=== PATIENT | male | born 1960 | race Caucasian/White ===

== ENCOUNTER 2024-01-25 10:34 | Inpatient (IN) ==
--- NOTE | 2024-01-25 11:17 | Emergency Department Note ---
History of Present Illness General Chief complaint: Shortness of Breath/Dyspnea Stated complaint: TROUBLE BREATHING, FATIGUE Time Seen by Provider: 01/25/24 10:52 Source: patient, family (Significant other who is at the bedside), RN notes reviewed and old records reviewed (06/26/2022-preop history and physical for knee arthroscopy) Mode of arrival: ambulatory Limitations: no limitations History of Present Illness Maximum Pain Intensity: 5 This patient is 63-year-old male who comes in after feeling short of breath for the last week or so. He was seen in the [facility] clinic this morning and he said he was given a shot of antibiotics for spider bite and they noticed his O2 sat was low at 88% they recommend he come to the ER if his symptoms got worse or persisted. He says been coughing clear phlegm for the last week or so he has had a low-grade temperature at times he thinks. No nausea vomit no chest pain he is lightheaded if he has a coughing spell he has pain in his knees bilaterally at times. No swelling in his legs. No fall or trauma no abdominal pain no blood or melena stool he reports no pulmonary problems however he does have a long history of smoking although he no longer smokes and I do suspect he has a COPD component. He does not use any inhalers Home Medications Medication Instructions Recorded Confirmed Type aspirin 81 mg tablet,delayed 81 mg PO QAM 01/21/19 06/28/22 History release (Helio Low Dose Aspirin) oxycodone 5 mg tablet 5 mg PO Q4H PRN pain #18 tabs 06/28/22 Rx Allergies Allergy/AdvReac Type Severity Reaction Status Date / Time bee venom protein (honey bee) Allergy Severe SWELLING Verified 06/28/22 10:18 No Known Allergies Allergy Unknown Verified 06/28/22 10:18 Past Med/Surg History Problem List (Updated 01/25/24 @ 14:23 by Siddhartha Bautista MD) Bug bite (Acute) COPD (chronic obstructive pulmonary disease) (Acute) SOB (shortness of breath) (Acute) Hypoxemia (Acute) Encounter for pre-operative examination Adenomatous polyps Tear of lateral meniscus of right knee Tobacco use disorder, continuous Medical History Hypercholesteremia Per records Abnormal EKG Preop EKG showing T wave abnormality (consider lateral schemia) --> referred to Dr. Do for stress test and stress test WNL 06/20/22. Surgical History History of esophagogastroduodenoscopy (EGD) History of tonsillectomy History of colonoscopy Family History Grandmother (Maternal) Family hx of colon cancer Mother Family hx of colon cancer Brother Family hx of colon cancer Social History Smoking Status: Former smoker Cigarettes Per Day: 1 ppd; Second Hand Exposure: No; Do You Dip or Chew Tobacco: No; Hx Alcohol Use: No Hx Substance Use: No Preferred Language: Kazakh Communication Ability: Effective Supervisor Enrobing Required: No Beliefs That Will Affect Care: None Current Living Situation: Spouse and Family Feels Safe at Home: Yes Assistive Devices: Glasses Review of Systems A total of 10 systems reviewed and were otherwise negative Physical Exam Vital Signs Vital Signs - 24 hr 01/25/24 10:44 01/25/24 11:25 01/25/24 11:27 Temperature 37.0 C Temperature Source Temporal Artery Scan Pulse Rate 98 H Pulse Rate from SpO2 Sensor Respiratory Rate 18 Respiratory Effort / Characteristics Spontaneous SOB on Exertion Respiratory Depth Normal Respiratory Pattern Regular Blood Pressure 128/82 142/83 H Blood Pressure Mean 97 105 Pulse Oximetry 91 Oxygen Delivery Method Room Air Room Air Sepsis Recent Fever Within 48 Hours No Sepsis New/Unexplained Change in Mental Status No Sepsis Action Taken by Nursing No Action Required Oxygen Flow Rate - Titration Pulse Oximetry Post Tiitration 01/25/24 11:27 01/25/24 11:30 01/25/24 11:30 Temperature Temperature Source Pulse Rate 89 89 Pulse Rate from SpO2 Sensor 89 88 Respiratory Rate 24 24 Respiratory Effort / Characteristics Respiratory Depth Respiratory Pattern Blood Pressure 139/74 Blood Pressure Mean 99 Pulse Oximetry 91 89 L Oxygen Delivery Method Sepsis Recent Fever Within 48 Hours Sepsis New/Unexplained Change in Mental Status Sepsis Action Taken by Nursing Oxygen Flow Rate - Titration Pulse Oximetry Post Tiitration 01/25/24 11:33 01/25/24 11:33 01/25/24 11:52 Temperature Temperature Source Pulse Rate Pulse Rate from SpO2 Sensor Respiratory Rate Respiratory Effort / Characteristics Non-Labored Spontaneous Respiratory Depth Normal Respiratory Pattern Blood Pressure Blood Pressure Mean Pulse Oximetry 88 L Oxygen Delivery Method Room Air Room Air Sepsis Recent Fever Within 48 Hours Sepsis New/Unexplained Change in Mental Status Sepsis Action Taken by Nursing Oxygen Flow Rate - Titration 2 Pulse Oximetry Post Tiitration 91 01/25/24 12:18 01/25/24 12:18 01/25/24 12:39 Temperature Temperature Source Pulse Rate 83 86 84 Pulse Rate from SpO2 Sensor 85 85 Respiratory Rate Respiratory Effort / Characteristics Respiratory Depth Respiratory Pattern Blood Pressure Blood Pressure Mean Pulse Oximetry 95 91 Oxygen Delivery Method Sepsis Recent Fever Within 48 Hours Sepsis New/Unexplained Change in Mental Status Sepsis Action Taken by Nursing Oxygen Flow Rate - Titration Pulse Oximetry Post Tiitration 01/25/24 13:00 01/25/24 13:03 01/25/24 13:24 Temperature Temperature Source Pulse Rate 83 84 Pulse Rate from SpO2 Sensor 84 84 Respiratory Rate 24 22 Respiratory Effort / Characteristics Respiratory Depth Respiratory Pattern Blood Pressure 119/70 Blood Pressure Mean 78 Pulse Oximetry 93 93 Oxygen Delivery Method Sepsis Recent Fever Within 48 Hours Sepsis New/Unexplained Change in Mental Status Sepsis Action Taken by Nursing Oxygen Flow Rate - Titration Pulse Oximetry Post Tiitration 01/25/24 13:30 01/25/24 13:39 Temperature Temperature Source Pulse Rate 85 Pulse Rate from SpO2 Sensor 84 Respiratory Rate 23 Respiratory Effort / Characteristics Respiratory Depth Respiratory Pattern Blood Pressure 127/76 Blood Pressure Mean 90 Pulse Oximetry 93 Oxygen Delivery Method Sepsis Recent Fever Within 48 Hours Sepsis New/Unexplained Change in Mental Status Sepsis Action Taken by Nursing Oxygen Flow Rate - Titration Pulse Oximetry Post Tiitration General: Well developed well nourished middle-aged male who appears in no acute distress, breathing comfortably on room air. Normal speech HEENT: Normal cephalic atraumatic. Pupils are equal round and reactive to light. Extraocular movements are intact. Oropharynx is pink with moist mucous membranes. No swelling of the mouth lips or tongue. Neck: Supple with a midline trachea. No meningeal signs or stiffness, no JVD or bruits. No Stridor. Chest: Diminished bilaterally but clear to auscultation bilaterally. No wheezes or rhonchi. No increased work of breathing. Heart: Regular rate and rhythm without murmurs or gallops. Abdomen: Soft nontender, nondistended without rebound guarding or rigidity. There is a round circular several centimeter area in the right lower abdomen. No fluctuance noted central clearing. Mildly tender. Extremities: No cyanosis clubbing or edema. No calf tenderness or assymetry Spine/Back. Non tender to palpation. No CVA tenderness Skin: Good turgor without rashes. Neurologic exam: Cranial nerves two through 12 are intact. Motor and sensation are intact and symmetrical throughout. Course Administered Medications Discontinued Medications Albuterol (Albut/Ipratrop 3mg/0.5mg Neb 3 Ml Vial) 3 ml NEB NOW STA; Protocol Stop: 01/25/24 12:10 Last Admin: 01/25/24 12:14 Dose: 3 ml Documented By: VLAD Ioversol (Optiray 320 125ml) 80 ml IV ONCE ONE Stop: 01/25/24 12:50 Last Admin: 01/25/24 12:49 Dose: 80 ml Documented By: CHARAN Medical Decision Making Differential Diagnosis COVID, pneumonia, viral illness, URI, pertussis, influenza, cardiac disease, CHF, pneumothorax, PE, COPD Medical Records Attestation: I reviewed the patient's medical records. Home Medications Current Medication List: was personally reviewed by me Laboratory Data Attestation: I reviewed the patient's lab results. 01/25/24 11:15 01/25/24 11:15 Lab Results 01/25/24 Range/Units 11:15 WBC 8.23 (4.8-10.8) K/ul RBC 4.62 L (4.70-6.10) M/uL Hgb 15.2 (14.0-18.0) g/dl Hct 43.9 (42.0-52.0) % MCV 95.0 (80.0-100.0) fL MCH 32.9 (25.0-34.0) pg MCHC 34.6 (32.0-36.0) g/dL RDW Std Deviation 47.8 H (36.4-46.3) fL RDW Coeff of Dave 13.5 (11.5-14.5) % Plt Count 284 (130-400) K/uL MPV 10.6 (9.4-12.4) fL Immature Gran % (Auto) 0.4 % Neut % (Auto) 72.9 % Lymph % (Auto) 15.1 % [place] % (Auto) 11.2 % Eos % (Auto) 0.0 % Baso % (Auto) 0.4 % Neut # (Auto) 6.01 (1.40-6.50) K/uL Lymph # (Auto) 1.24 (1.20-3.40) K/uL [place] # (Auto) 0.92 H (0.11-0.59) K/uL Eos # (Auto) 0.00 (0.00-0.50) K/uL Baso # (Auto) 0.03 (0.00-0.20) K/uL Immature Gran # (Auto) 0.03 (0.01-0.20) K/uL D-Dimer 870 H* (0-500) ug/L FEU Sodium 135 L (136-145) mmol/L Potassium 3.5 (3.5-5.1) mmol/L Chloride 99 (98-107) mmol/L Carbon Dioxide 29 (21-32) mmol/L Anion Gap 7 (3-11) BUN 18 (6-23) mg/dl Creatinine 0.97 (0.6-1.4) mg/dl Est Cr Clr Drug Dosing 88.1 ml/min Est GFR ( Amer) 95.9 ml/min Est GFR (Non-Af Amer) 82.7 ml/min BUN/Creatinine Ratio 18.6 (10-20) Glucose 95 (70-99(Fasting)) mg/dl Lactate 1.1 (0.4-2.0) mmol/L Calcium 9.0 (8.6-10.3) mg/dl Total Bilirubin 1.2 H (0.2-1.0) mg/dl AST 24 (13-39) U/L ALT 27 (7-52) U/L Alkaline Phosphatase 74 (34-104) U/L Troponin I High Sens 5.6 (0-20) pg/ml B-Natriuretic Peptide 20 (0-100) pg/ml Total Protein 7.4 (6.0-8.3) gm/dl Albumin 4.2 (3.4-5.0) gm/dl Globulin 3.2 (2.5-4.0) gm/dl Albumin/Globulin Ratio 1.3 (0.9-2) Lipase 20 (11-82) U/L Adenovirus (PCR) Not Detected (NotDetected) B. pertussis DNA (PCR) Not Detected (NotDetected) B.parapertussis DNA PCR Not Detected (NotDetected) C. pneumoniae DNA (PCR) Not Detected (NotDetected) Coronavirus OC43 (PCR) Not Detected (NotDetected) Coronavirus HKU1 (PCR) Not Detected (NotDetected) Coronavirus 229E (PCR) Not Detected (NotDetected) SARS-CoV-2 (PCR) Not Detected (NotDetected) Coronavirus NL63 (PCR) Not Detected (NotDetected) Human Metapneumovir PCR Not Detected (NotDetected) Influenza Type A (PCR) Not Detected (NotDetected) Influenza Type B (PCR) Not Detected (NotDetected) M. pneumoniae (PCR) Not Detected (NotDetected) Parainfluenza 1 (PCR) Not Detected (NotDetected) Parainfluenza 2 (PCR) Not Detected (NotDetected) Parainfluenza 3 (PCR) Not Detected (NotDetected) Parainfluenza 4 (PCR) Not Detected (NotDetected) RSV (PCR) Not Detected (NotDetected) Entero/Rhino (PCR) Not Detected (NotDetected) Imaging Data Attestation: I personally reviewed and interpreted this imaging study as follows: My Impression: Chest x-rayno acute infiltrate, failure, pneumothorax seen CT angiono pneumothorax no PE no infiltrate seen Radiologist's Impression: Chest X-Ray 01/25/24 11:00 XR chest 1V portable HISTORY: Chest pain, nonspecific COMPARISON: None. FINDINGS: The lungs are clear. Cardiac silhouette is normal in size. No pleural effusions. No pneumothorax. IMPRESSION: No acute process. ACT 112: Negative or not required by law. Electronically signed by: Julien Loredo M.D. 01/25/2024 11:23 AM Chest CTA 01/25/24 12:33 CHEST CTA for PULMONARY ARTERIES CT DOSE: HISTORY: Atypical chest pain. Shortness of breath. TECHNIQUE: Multiaxial CT images of the chest were performed following the intravenous administration of contrast to evaluate the pulmonary arteries. 3D/Maximal intensity projection images were also obtained. Sagittal and coronal reformations were also reviewed. A dose lowering technique was utilized adhering to the principles of ALARA. COMPARISON STUDY: None. FINDINGS: Normal caliber thoracic aorta with no evidence for a dissection. The heart is normal in size. No filling defects within the pulmonary arteries to suggest a pulmonary embolus. Limited views of the upper abdomen demonstrate a normal liver, spleen, and adrenal glands. Normal esophagus. There is a 13 mm left thyroid nodule. This does not meet CT criteria for follow-up at this time. No pleural or pericardial effusions. No mediastinal or hilar lymphadenopathy. No acute fractures identified. No pneumothorax. The central airways are patent. Mild emphysema is noted. Mild dependent changes seen within the lower lobes posteriorly. Otherwise, no focal lung consolidations to suggest pneumonia. No evidence for pulmonary edema. IMPRESSION: 1. No evidence for a pulmonary embolus. 2. Mild dependent changes seen within the lung bases posteriorly. Otherwise, no focal lung consolidations to suggest a pneumonia. ACT 112: Negative or not required by law. Electronically signed by: Julien Loredo M.D. 01/25/2024 1:23 PM ECG Data Attestation: I personally reviewed and interpreted this ECG as follows: Indication: + SOB/dyspnea Rate (beats per minute): 89 Rhythm: + normal sinus ECG Intervals/blocks: + Normal QRS, + Normal QT and + Normal IN ECG [place]: + Normal ECG ST segments: + Normal ST segments ECG Findings: no PACs or no PVCs Comparison ECG Date: no prior available MDM Narrative This patient comes in as described above. He was placed on a technical staff assistant in room B10. He is here for treatment evaluation of cough and shortness of breat for about a week. He denies any other medical problems as he has a very long smoking history although currently not smoking. I suspect there is a COPD component. Chest x-ray was obtained and shows no focal infiltrate pneumonia pneumonia or pneumothorax. IV access was ordered as well as multiple blood testings including blood cultures and lactic acid. EKG was obtained. Lactate was 1.1 which would go against sepsis. He has no white count. He has no significant electrolyte or metabolic abnormalities. He has nothing to suggest liver, gallbladder ,or pancreas disease. His oxygen was somewhat hypoxemic in the high 80s to low 90s. I did give him a DuoNeb while awaiting for labs come back. He does not feel the DuoNeb helped him much he just feels generally lousy he says. When I take the oxygen off he does desaturate into the high 80s low 90s. CT angiography shows no PE or other pathology. I did add a Lyme titer and tickborne illness because he does have a lesion on his abdomen which she attributes to spider bite. There is no pus drainage she did not actually see a tick in his labs did not look likely tickborne so far. Bio fire was negative. I do think there may also be underlying COPD component given his history of smoking but he is never been diagnosed with COPD yet. I do think he needs to be admitted/of his observed given his hypoxemia. Continuous cardiac monitoring: Orders placed in EMR for continuous technical staff assistant call upon my evaluation patient noted to be normal sinus rhythm with a rate of 90 Impression & Plan Hypoxemia, SOB (shortness of breath), COPD (chronic obstructive pulmonary disease), Bug bite Discharge Plan Visit Data Chief Complaint: Shortness of Breath/Dyspnea Stated Complaint: TROUBLE BREATHING, FATIGUE ED Provider: Siddhartha Bautista Discharge Problem: Hypoxemia, SOB (shortness of breath), COPD (chronic obstructive pulmonary disease), Bug bite Forms Stand Alone Forms: My [facility] Protonet Prescriptions Prescriptions: No Action aspirin [Helio Low Dose Aspirin] 81 mg Tablet,Delayed Release (Dr/Ec) 81 mg PO QAM oxycodone 5 mg tablet 5 mg PO Q4H MDD 6 tabs PRN (Reason: pain) Qty: 18 0RF Referrals Referrals: Fernando Barney MD [Primary Care Provider] - Discharge Problem: COPD (chronic obstructive pulmonary disease) Qualifiers: COPD type: chronic bronchitis Chronic bronchitis type: unspecified Qualified Code(s): J42 - Unspecified chronic bronchitis Bug bite Qualifiers: Encounter type: initial encounter Qualified Code(s): W57.XXXA - Bitten or stung by nonvenomous insect and other nonvenomous arthropods, initial encounter
--- NOTE | 2024-01-25 11:25 | XRay Report ---
XR chest 1V portable HISTORY: Chest pain, nonspecific COMPARISON: None. FINDINGS: The lungs are clear. Cardiac silhouette is normal in size. No pleural effusions. No pneumot horax. IMPRESSION: No acute process. ACT 112: Negative or not required by law. Electronically signed by: Julien Loredo M.D. 01/25/2024 11:23 AM
[2024-01-25 11:51] LABS: Basophils # (auto) 0.03 K/uL (0.00-0.20); Basophils % (auto) 0.4 %; Hematocrit (blood only) 43.9 % (42.0-52.0); Hemoglobin 15.2 g/dl (14.0-18.0); Immature Granulocytes # (auto) 0.03 K/uL (0.01-0.20); Immature Granulocytes % (auto) 0.4 %; Lymphocytes # (auto) 1.24 K/uL (1.20-3.40); Lymphocytes % (auto) 15.1 %; Mean Corpuscular Hemoglobin 32.9 pg (25.0-34.0); Mean Corpuscular Hgb Conc 34.6 g/dL (32.0-36.0); Mean Platelet Volume 10.6 fL (9.4-12.4); Monocytes # (auto) 0.92 K/uL (0.11-0.59); Monocytes % (auto) 11.2 %; Neutrophils # (auto) 6.01 K/uL (1.40-6.50); Neutrophils % (auto) 72.9 %; Platelet Count 284 K/uL (130-400); RDW Coefficient of Variation 13.5 % (11.5-14.5); RDW Standard Deviation 47.8 fL (36.4-46.3); Red Blood Count 4.62 M/uL (4.70-6.10); White Blood Count 8.23 K/ul (4.8-10.8)
[2024-01-25 12:04] LABS: Albumin Globulin Ratio 1.3 (0.9-2); Albumin Level 4.2 gm/dl (3.4-5.0); BUN Creatinine Ratio 18.6 (10-20); Bilirubin,Total 1.2 mg/dl (0.2-1.0); Creatinine Clr Calc Pharmacy 88.1 ml/min; Est GFR (African American) 95.9 ml/min; Est GFR (Non-African American) 82.7 ml/min; Globulin 3.2 gm/dl (2.5-4.0); Potassium 3.5 mmol/L (3.5-5.1); Total Protein 7.4 gm/dl (6.0-8.3)
[2024-01-25 12:09] LABS: Troponin I High Sensitivity 5.6 pg/ml (0-20)
[2024-01-25] MEDS: ALBUT/IPRATROP 3MG/0.5MG NEB 3 ML VIAL NEB STA (12:14)
[2024-01-25 12:34] LABS: D Dimer 870 ug/L FEU (0-500)
[2024-01-25 12:35] LABS: Adenovirus PCR Not Detected (NotDetected); Bordetella parapertussis PCR Not Detected (NotDetected); Bordetella pertussis PCR Not Detected (NotDetected); Chlamydia pneumoniae PCR Not Detected (NotDetected); Coronavirus 229E PCR Not Detected (NotDetected); Coronavirus CoV-2 (COVID19)PCR Not Detected (NotDetected); Coronavirus HKU1 PCR Not Detected (NotDetected); Coronavirus NL63 PCR Not Detected (NotDetected); Coronavirus OC43PCR Not Detected (NotDetected); Human Metapneumovirus PCR Not Detected (NotDetected); Influenza A PCR Not Detected (NotDetected); Influenza B PCR Not Detected (NotDetected); Mycoplasma pneumoniae PCR Not Detected (NotDetected); Parainfluenza Virus 1 PCR Not Detected (NotDetected); Parainfluenza Virus 2 PCR Not Detected (NotDetected); Parainfluenza Virus 3 PCR Not Detected (NotDetected); Parainfluenza Virus 4 PCR Not Detected (NotDetected); Respiratory Syncytial VirusPCR Not Detected (NotDetected); Rhinovirus/Enterovirus PCR Not Detected (NotDetected)
[2024-01-25] MEDS: OPTIRAY 320 125ml IV ONE (12:49)
--- NOTE | 2024-01-25 13:25 | CT Scan Report ---
CHEST CTA for PULMONARY ARTERIES CT DOSE: HISTORY: Atypical chest pain. Shortness of breath. TECHNIQUE: Multiaxial CT images of the chest were performed following the intravenous administration of contrast to evaluate the pulmonary arteries. 3D/Maximal intensity projection images were also obta ined. Sagittal and coronal reformations were also reviewed. A dose lowering technique was utilized a dhering to the principles of ALARA. COMPARISON STUDY: None. FINDINGS: Normal caliber thoracic aorta with no evidence for a dissection. The heart is normal in siz e. No filling defects within the pulmonary arteries to suggest a pulmonary embolus. Limited views of the upper abdomen demonstrate a normal liver, spleen, and adrenal glands. Normal esophagus. There is a 13 mm left thyroid nodule. This does not meet CT criteria for follow-up at this time. No pleural or pericardial effusions. No mediastinal or hilar lymphadenopathy. No acute fractures identified. No pn eumothorax. The central airways are patent. Mild emphysema is noted. Mild dependent changes seen with in the lower lobes posteriorly. Otherwise, no focal lung consolidations to suggest pneumonia. No evid ence for pulmonary edema. IMPRESSION: 1. No evidence for a pulmonary embolus. 2. Mild dependent changes seen within the lung bases posteriorly. Otherwise, no focal lung consolidat ions to suggest a pneumonia. ACT 112: Negative or not required by law. Electronically signed by: Julien Loredo M.D. 01/25/2024 1:23 PM
--- OUTSIDE RECORDS SUMMARY | 2024-01-25 13:50 | External Medical Summary | Summary of Care ---
Author Name Unknown Organization [facility] Address [address] [place] [address] Phone [phone] Care Team Providers Care [employer] Name Role Phone Fernando Barney MD Primary Care Provider [phone] Reason for Visit * Reason Onset Date Comments Nurse Telephone Follow Up 11/12/2023 Encounter Details Date Type Department Care Team (Late st Contact Info) Description 11/12/2023 Telephone Otolaryngology, [facility] [address] [place] [address] Services, Scheduling [address] [place] [address] Nurse Telephone Follow Up Allergies Active Allergy Reactions Criticality Noted Date Comments Lisinopril 08/29/2023 cough documented as of this encounter (statuses as of 11/12/2023) Medications Medication Sig Dispensed Refills Start Date End Date Status ASPIRIN 81 MG PO CHEWIndications:Other specified prophylactic or treatment measure One pill by mouth once a day with food 100 Tab 5 12/12/2012 Active Losartan Potassium 50 MG Oral Tablet (Cozaar) Take 1 Tablet by mouth in the morning. 100 Tablet 3 08/29/2023 Active amLODIPine Besylate 2.5 MG Oral Tablet (Norvasc) Take 1 Tablet by mouth in the morning. 90 Tablet 3 10/04/2023 Active hydroCHLOROthiazide 25 MG Oral Tablet (Hydrodiuril) Take 1 Tablet by mouth in the morning. 90 Tablet 3 10/04/2023 Active Rosuvastatin Calcium 10 MG Oral Tablet (Crestor)Indications:H ypertensive heart disease without heart failure,HTN, goal below 140/90 Take 1 Tablet by mouth in the morning. 90 Tablet 3 10/18/2023 Active Hospital, Clinic, or Other Facility Administered Medication Ordered Dose Route Frequency Start Date End Date Status albuterol sulfate (PROVENTIL) (2.5 MG/3ML) 0.083% inhalation solution 2.5 mgIndications:Hypoxia 2.5 mg NEBULIZER Q4H PRN 01/02/2019 Act juana documented as of this encounter (statuses as of 11/12/2023) Active Problems Problem Noted Date Diagnosed Date High triglycerides 06/23/2021 Family history of malignant neoplasm of colon in first degree relative diagnosed when younger than 60 years of age 1206/23/2021 History of adenomatous polyp of colon 06/23/2021 BMI 33.0-33.9,adult 06/23/2021 Hypercholesteremia 08/02/2011 Tobacco use disorder 07/26/2009 documented as of this encounter (statuses as of 11/12/2023) Resolved Problems Problem Noted Date Diagnosed Date Resolved Date Other specified prophylactic or treatment measure 12/12/2012 12/29/2016 Family history of GI malignancy 05/25/2009 12/29/2016 Benign neoplasm of colon 03/12/200903/2017 Overview: serrated hyperplastic/repeat colonoscopy in 1 yr documented as of this encounter (statuses as of 11/12/2023) Immunizations Name Administration Dates Next Due COVID-19 mRNA, LNP-s, No Pre serve, 2-Dose Series (Moderna) 12/21/2020,11/16/2020 TD - Tetanus/Diptheria (ADULT) 05/23/2001 TD, Preservative Free 12/12/2012 TDAP (age 10 and older)(Boostrix) 01/02/2023 documented as of this encounter Social History Tobacco Use Types Packs/Day Years Used Date Smoking Tobacco: Every Day Cigarettes 1 10 Passive Smoke Exposure: Past Smokeless Tobacco: Never Alcohol Use Standard Drinks/Week Comments Yes 0 (1 standard drink = 0.6 oz pur e alcohol) couple drinks on weekend PHQ-2 Answer Date Recorded PHQ-2 Score 0 07/26/2018 Hunger Vital Sign Answer Date Recorded Within the past 12 months, y ou worried that your food would run out before you got the money to buy more. Never true 05/15/20 23 Within the past 12 months, t he food you bought just didn't last and you didn't have money to get more. Never true 05/15/2023 Sex and Gender Information Value Date Recorded Sex Assigned at Male 01/02/2023 9:14 AM EDT Gender Identity Male 01/02/2023 9:14 AM EDT Sexual Orientation Straight 01/02/2023 9: 14 AM EDT Job Start Date Occupation Industry Not on file Not on file Not on file documented as of this encounter Miscellaneous Notes * Telephone Encounter - Muriel Farr OSA - 11/12/2023 12:09 PM EDT Pt is returning a call to [facility]. Please call pt back. Thank you Muriel documented in this encounter Plan of Treatment Scheduled Procedures Name Priority Associated Diagnoses Date/Ti me COLONOSCOPY FLEXIBLE PROXIMAL DIAGNOSTIC Recall History of colon polyps ESOPHAGOGASTRODUODENOSCOPY ( EGD), FLEXIBLE, TRANSORAL, DIAGNOSTIC Recall Esophagitis Health Maintenance Due Date Last Done Comments Pneumococcal Vaccine: Pediatrics (0 to 5 Years) and At-Risk Patients (6 to 64 Years) (1 of 2 - PCV) 1966 HIV Screening 1975 Hepatitis C Screening 1978 Zoster Vaccines (1 of 2) 2010 Depression Screening 07/26/2019 07/26/2018 COVID-19 Vaccine (3 - 2022- season) 2023 12/21/2020, 11/16/2020 Influenza Vaccine (FLU shot) (Season Ended) 2024 Diabetes Screening 09/19/2026 09/20/2023, 0 01/10/2023, 12/11/2022, Additional history exists COLONOSCOPY-EVERY 5 YRS AGES 18-100 04/14/2027 04/14/2022, 04/14/2022, 01/29/2019, Additional history exists Lipid Panel 10/14/2028 10/15/2023, 05/24, 12/28/2018, Additional history exists DTaP,Tdap,and Td Vaccines (2 - Td or Tdap) 01/02/2033 01/02/2023, 12/12/2012, 05/23/2001 COLONOSCOPY-EVERY 3 YRS AGES 18-100 Discontinued 04/14/2022, 04/14/2022, 01/29/2019, Additional history exists GARDASIL-HPV IMMUNIZATION SERIES Aged Out No longer eligible based on patient's age to complete this topic Hepatitis B Aged Out No longer eligi ble based on patient's age to complete this topic MENINGOCOCCAL (MENACTRA/MENVEO) Aged Out No longer eligible based on patient's age to complete this topic documented as of this encounter Medical Devices Not on filedocumented as of this encounter Care Teams [employer] Relationship Specialty Start Date End Date Fernando Barney MD [address] [place] [address] PCP - General Family Medicine 12/26/18 documented as of this encounter
--- OUTSIDE RECORDS SUMMARY | 2024-01-25 13:50 | External Medical Summary | Summary of Care ---
Author Name Unknown Organization [facility] [address] [facility] [address] Phone [phone] Care Team Providers Care Captain Assistant Name Role Phone Fernando Barney MD Primary Care Provider [phone] Encounter Details Date Type Department Care Team (Late st Contact Info) Description 10/23/2023 Orders Only PATIENT PORTAL DO NOT DELETE THIS DEPT USED BY [place] [id number] Allergies Active Allergy Reactions Criticality Noted Date Comments Lisinopril 08/29/2023 cough documented as of this encounter (statuses as of 10/23/2023) Medications Medication Sig Dispensed Refills Start Date [...] as of this encounter (statuses as of 10/23/2023) Active Problems Problem Noted Date Diagnosed Date High triglycerides 06/23/2021 Family history of malignant neoplasm of colon in first degree relative diagnosed when younger than 60 years of age 1206/23/2021 History of adenomatous polyp of colon 06/23/2021 BMI 33.0-33.9,adult 06/23/2021 Hypercholesteremia 08/02/2011 Tobacco use disorder 07/26/2009 documented as of this encounter (statuses as of 10/23/2023) Resolved Problems Problem Noted Date Diagnosed Date Resolved Date Other specified prophylactic or treatment measure 12/12/2012 12/29/2016 Family history of GI malignancy 05/25/2009 12/29/2016 Benign neoplasm of colon 03/12/200903/2017 Overview: serrated hyperplastic/repeat colonoscopy in 1 yr documented as of this encounter (statuses as of 10/23/2023) Immunizations Name Administration Dates Next Due COVID-19 [...] on file documented as of this encounter Plan of Treatment Upcoming Encounters Date Type Department Care Team (Late st Contact Info) Description 11/05/2023 8:00 AM EDT Imaging Radiology [address] [place] [address] Scheduled Procedures Name Priority Associated Diagnoses Date/Ti [...] 2010 Depression Screening 07/26/2019 07/26/2018 COVID-19 Vaccine ( - season) 2023 12/21/2020, 11/16/2020 Influenza Vaccine (FLU [...] filedocumented as of this encounter Care Teams Captain Assistant Relationship Specialty Start Date End Date Fernando Barney MD [address] [place] [facility] [place] [address] PCP - General Family Medicine 12/26/18 documented as of this encounter
--- OUTSIDE RECORDS SUMMARY | 2024-01-25 13:50 | External Medical Summary | Summary of Care ---
Author Name Unknown Organization [facility] Address [address] [place] [address] Phone [phone] Care Team Providers Care Warehouse Order Filler Name Role Phone Fernando Barney MD Primary Care Provider [phone] Reason for Visit * Reason Onset Date Comments Nurse Telephone Follow Up 11/12/2023 Encounter Details Date Type Department Care Team (Late st Contact Info) Description 11/12/2023 Telephone Otolaryngology, [address] [place] [address] Services, Scheduling [address] [place] [address] Nurse Telephone Follow Up Allergies Active Allergy [...] encounter Miscellaneous Notes * Telephone Encounter - Shazia Goncalves LPN - 11/12/2023 1:05 PM EDT Please see other enc from 11/12/2023 * Telephone Encounter - Muriel Farr OSA [...] Screening 07/26/2019 07/26/2018 COVID-19 Vaccine (3 - season) 2023 12/21/2020, 11/16/2020 Influenza Vaccine [...] filedocumented as of this encounter Care Teams Warehouse Order Filler Relationship Specialty Start Date End Date Fernando Barney MD [address] [place] [address] PCP - General Family Medicine 12/26/18 documented as of this encounter
--- OUTSIDE RECORDS SUMMARY | 2024-01-25 13:50 | External Medical Summary | Summary of Care ---
Author Name Unknown Organization [facility] Address [address] [facility] [address] Phone [phone] Care Team Providers Care Safety Pin Assembling Machine Operator Name Role Phone Fernando Barney MD Primary Care Provider [phone] Reason for Visit * Reason Onset Date Comments Test Results Imaging Study 11/12/2023 Encounter Details Date Type Department Care Team (Late st Contact Info) Description 11/12/2023 Telephone Otolaryngology, [address] [place] [address] Veronique Morelos MD [address] [place] [address] Test Results Imaging Study Allergies Active Allergy Reactions Criticality Noted Date Comments Lisinopril 08/29/2023 cough documented as of this encounter (statuses as of 11/14/2023) Medications Medication Sig Dispensed Refills Start Date [...] as of this encounter (statuses as of 11/14/2023) Active Problems Problem Noted Date Diagnosed Date High triglycerides 06/23/2021 Family history of malignant neoplasm of colon in first degree relative diagnosed when younger than 60 years of age 1206/23/2021 History of adenomatous polyp of colon 06/23/2021 BMI 33.0-33.9,adult 06/23/2021 Hypercholesteremia 08/02/2011 Tobacco use disorder 07/26/2009 documented as of this encounter (statuses as of 11/14/2023) Resolved Problems Problem Noted Date Diagnosed Date Resolved Date Other specified prophylactic or treatment measure 12/12/2012 12/29/2016 Family history of GI malignancy 05/25/2009 12/29/2016 Benign neoplasm of colon 03/12/200903/2017 Overview: serrated hyperplastic/repeat colonoscopy in 1 yr documented as of this encounter (statuses as of 11/14/2023) Immunizations Name Administration Dates Next Due COVID-19 [...] money to buy more. Never true 05/15/20 Within the past 12 months, t he [...] encounter Miscellaneous Notes * Telephone Encounter - Mariah Mcdowell LPN - 11/14/2023 3:16 PM EDT Called and spoke with patient, he is aware of results/recs and voiced understanding. * Telephone Encounter - Shazia Goncalves LPN - 11/12/2023 10:12 AM EDT I left a message on patient's answering machine asking patient to call us back. * Telephone Encounter - Veronique Morelos MD - 11/12/2023 9:48 AM EDT Please let the patient know I reviewed his CT scan which just showed benign lymph nodes around his submandibular gland. Can continue to observe. documented in this encounter Plan of Treatment [...] filedocumented as of this encounter Care Teams Safety Pin Assembling Machine Operator Relationship Specialty Start Date End Date Fernando Barney MD [address] [place] [address] PCP - General Family Medicine 12/26/18 documented as of this encounter
--- OUTSIDE RECORDS SUMMARY | 2024-01-25 13:51 | External Medical Summary | Summary of Care ---
Author Name Unknown Organization [facility] Address [address] [facility] [place] [address] Phone [phone] Care Team Providers Care Rn Complex Care Name Role Phone Fernando Barney MD Primary Care Provider [phone] Reason for Visit * Reason Comments Outpatient Testing Encounter Details Date Type Department Care Team (Late st Contact Info) Description 10/15/2023 9:00 AM EDT Laboratory Laboratory, [place] [address] [place] [address] [facility] [address], [place] [id number] Hypertensive heart disease without heart failure; HTN, goal below 140/90; Tobacco use Allergies Active Allergy Reactions Criticality Noted Date Comments Lisinopril 08/29/2023 cough documented as of this encounter (statuses as of 10/15/2023) Medications Medication Sig Dispensed Refills Start Date [...] the morning. 90 Tablet 3 10/04/2023 Active Hospital, Clinic, or Other Facility Administered Medication Ordered Dose Route Frequency Start Date End Date Status albuterol sulfate (PROVENTIL) (2.5 MG/3ML) 0.083% inhalation solution 2.5 mgIndications:Hypoxia 2.5 mg NEBULIZER Q4H PRN 01/02/2019 Act juana documented as of this encounter (statuses as of 10/15/2023) Active Problems Problem Noted Date Diagnosed Date High triglycerides 06/23/2021 Family history of malignant neoplasm of colon in first degree relative diagnosed when younger than 60 years of age 1206/23/2021 History of adenomatous polyp of colon 06/23/2021 BMI 33.0-33.9,adult 06/23/2021 Hypercholesteremia 08/02/2011 Tobacco use disorder 07/26/2009 documented as of this encounter (statuses as of 10/15/2023) Resolved Problems Problem Noted Date Diagnosed Date Resolved Date Other specified prophylactic or treatment measure 12/12/2012 12/29/2016 Family history of GI malignancy 05/25/2009 12/29/2016 Benign neoplasm of colon 03/12/200903/2017 Overview: serrated hyperplastic/repeat colonoscopy in 1 yr documented as of this encounter (statuses as of 10/15/2023) Immunizations Name Administration Dates Next Due COVID-19 [...] Description 11/05/2023 8:00 AM EDT Imaging Radiology [address], [address] [place] [address] Pending Results Name Type Priority Associated Diagnoses Date /Time CBC Lab Routine Hypertensive heart disease without heart failure HTN, goal below 140/90 Tobacco use 10/15/2023 8:53 AM EDT HEPATIC FUNCTION PANEL Lab Routine Hypertensive heart disease without heart failure HTN, goal below 140/90 Tobacco use 10/15/2023 8:53 AM EDT LIPID PANEL WITH DIRECT LDL IF TG IS HIGH Lab Routine Hypertensive heart disease without heart failure HTN, goal below 140/90 Tobacco use 10/15/2023 8:53 AM EDT Scheduled Procedures Name Priority Associated Diagnoses Date/Ti [...] 2023 12/21/2020, 11/16/2020 Influenza Vaccine (FLU shot) (#1) 2023 Diabetes Screening 09/19/2026 09/20/2023, 0 01/10/2023, 12/11/2022, Additional history exists COLONOSCOPY-EVERY 5 YRS AGES 18-100 04/14/2027 04/14/2022, 04/14/2022, 01/29/2019, Additional history exists Lipid Panel 06/20/2027 06/20/2022, 0602/2019, 12/30/2013, Additional history exists DTaP,Tdap,and Td Vaccines (2 [...] Not on filedocumented as of this encounter Visit Diagnoses Diagnosis Hypertensive heart disease without heart failure Unspecified hypertensive heart disease without heart failure HTN, goal below 140/90 Unspecified essential hypertension Tobacco use Tobacco use disorder documented in this encounter Care Teams Rn Complex Care Relationship Specialty Start Date End Date Fernando Barney MD [address] [place] [address] PCP - General Family Medicine 12/26/18 documented as of this encounter
--- OUTSIDE RECORDS SUMMARY | 2024-01-25 13:51 | External Medical Summary ---
Author Name Unknown Address Unknown Organization [id number]:[facility] [place] [facility] [address] [place] [address] Laboratory Report Ordering Provider Test Date Status WHITNEY ZAZUETA 09/20/2023 07:54:30 Final Observation Date Value Abnormality Reference (Units ) Status BUN 09/20/2023 07:54:30 21 Above high normal 6-20 (mg/dL) Final Creatinine 09/20/2023 07:54:30 0.9 0.6-1.2 (mg/dL) Final Glomerular filtration rate/1.73 sq M.predicted [Volume Rate/Area] in Serum, Plasma or Blood by Creatinine-based formula (CKD-EPI) 09/20/2023 07:54:30 >90 >=60 (mL/min) Final eGFR is calculated based on the CKD-EPI 2020 equation SODIUM 09/20/2023 07:54:30 140 135-146 (m mol/L) Final Potassium 09/20/2023 07:54:30 3.9 3.5-5.1 (m mol/L) Final Cl 09/20/2023 07:54:30 102 98-107 (mm ol/L) Final CO2 09/20/2023 07:54:30 25 22-32 (mmo l/L) Final Anion gap 09/20/2023 07:54:30 13 7-15 (mmol /L) Final Glucose 09/20/2023 07:54:30 114 70-120 (mg /dL) Final Calcium 09/20/2023 07:54:30 9.1 8.4-10.2 ( mg/dL) Final Performing Location [facility] [place] [address] [place] [address]
--- OUTSIDE RECORDS SUMMARY | 2024-01-25 13:51 | External Medical Summary | Summary of Care ---
Author Name Unknown Organization [facility] Address [address] [facility] [place] [address] Phone [phone] Care Team Providers Care Iron Carrier Name Role Phone Fernando Barney MD Primary Care Provider [phone] Reason for Visit * Reason Comments Outpatient Testing Encounter Details Date Type Department Care Team (Late st Contact Info) Description 09/20/2023 7:50 AM EST Laboratory Laboratory, [place] [address] [place] [address] [facility] [address] [place], [place] [phone] HTN, goal below 140/90; Cough due to ИРИНА inhibitor Allergies Active Allergy Reactions Criticality Noted Date Comments Lisinopril 08/29/2023 cough documented as of this encounter (statuses as of 09/20/2023) Medications Medication Sig Dispensed Refills Start Date End Date Status ASPIRIN 81 MG PO CHEWIndications:Othe r specified prophylactic or treatment measure One pill by mouth once a day with food 100 Tab 5 12/12/2012 Active Varenicline Tartrate 0.5 MG Oral Tablet (Chantix)Indications :Tobacco use One tab by mouth at bedtime for a week then up to one tab twice a day thereafter 60 Tablet 1 01/02/2023 Active amLODIPine Besylate 2.5 MG Oral Tablet (Norvasc) Take 1 Tablet by mouth in the morning. 34 Tablet 11 05/08/2023 Active Losartan Potassium 50 MG Oral Tablet (Cozaar) Take 1 Tablet by mouth in the morning. 100 Tablet 3 08/29/2023 Active hydroCHLOROthiazide 25 MG Oral Tablet (Hydrodiuril) Take 1 Tablet by mouth in the morning. 34 Tablet 11 08/29/2023 Active Hospital, Clinic, or Other Facility Administered Medication Ordered Dose Route Frequency Start Date End Date Status albuterol sulfate (PROVENTIL) (2.5 MG/3ML) 0.083% inhalation solution 2.5 mgIndications:Hypoxia 2.5 mg NEBULIZER Q4H PRN 01/02/2019 Act juana documented as of this encounter (statuses as of 09/20/2023) Active Problems Problem Noted Date Diagnosed Date High triglycerides 06/23/2021 Family history of malignant neoplasm of colon in first degree relative diagnosed when younger than 60 years of age 1206/23/2021 History of adenomatous polyp of colon 06/23/2021 BMI 33.0-33.9,adult 06/23/2021 Hypercholesteremia 08/02/2011 Tobacco use disorder 07/26/2009 documented as of this encounter (statuses as of 09/20/2023) Resolved Problems Problem Noted Date Diagnosed Date Resolved Date Other specified prophylactic or treatment measure 12/12/2012 12/29/2016 Family history of GI malignancy 05/25/2009 12/29/2016 Benign neoplasm of colon 03/12/200903/2017 Overview: serrated hyperplastic/repeat colonoscopy in 1 yr documented as of this encounter (statuses as of 09/20/2023) Immunizations Name Administration Dates Next Due COVID-19 [...] Care Team (Late st Contact Info) Description 10/04/2023 8:00 AM EDT Office Visit Cardiology, [facility] [address] [facility] [place] [address] Sangeeta Robles CRNP [address] [facility] [place] [address] 11/05/2023 8:00 AM EDT Imaging Radiology [address] [place] [address] Pending Results Name Type Priority Associated Diagnoses Date /Time BASIC METABOLIC PANEL Lab Routine HTN, goal below 140/90 Cough due to ИРИНА inhibitor 09/20/2023 7:54 AM EST Scheduled Procedures Name Priority Associated Diagnoses Date/Ti [...] Depression Screening 07/26/2019 07/26/2018 COVID-19 Vaccine ( season) 2023 12/21/2020, 11/16/2020 Influenza Vaccine (FLU shot) (#1) 2023 Diabetes Screening 01/10/2026 01/10/2023, 0 12/11/2022, 06/28/2022, Additional history exists COLONOSCOPY-EVERY 5 YRS AGES 18-100 04/14/2027 04/14/2022, 04/14/2022, 01/29/2019, Additional history exists Lipid Panel 06/20/2027 06/20/2022, 060 02/2019, 12/30/2013, Additional history exists DTaP,Tdap,and Td Vaccines [...] as of this encounter Visit Diagnoses Diagnosis HTN, goal below 140/90 Unspecified essential hypertension Cough due to ИРИНА inhibitor Cough documented in this encounter Care Teams Iron Carrier Relationship Specialty Start Date End Date Fernando Barney MD [address] [place] [address] PCP - General Family Medicine 12/26/18 documented as of this encounter
--- OUTSIDE RECORDS SUMMARY | 2024-01-25 13:51 | External Medical Summary | Summary of Care ---
Author Name Unknown Organization [facility] Address [address] [facility] [place] [address] Phone [phone] Care Team Providers Care Washer Blanket Name Role Phone Fernando Barney MD Primary Care Provider [phone] Encounter Details Date Type Department Care Team (Late st Contact Info) Description 10/08/2023 Orders Only PATIENT PORTAL DO NOT DELETE THIS DEPT USED BY [place] [id number] Allergies Active Allergy Reactions Criticality Noted Date Comments Lisinopril 08/29/2023 cough documented as of this encounter (statuses as of 10/08/2023) Medications Medication Sig Dispensed Refills Start Date [...] as of this encounter (statuses as of 10/08/2023) Active Problems Problem Noted Date Diagnosed Date High triglycerides 06/23/2021 Family history of malignant neoplasm of colon in first degree relative diagnosed when younger than 60 years of age 1206/23/2021 History of adenomatous polyp of colon 06/23/2021 BMI 33.0-33.9,adult 06/23/2021 Hypercholesteremia 08/02/2011 Tobacco use disorder 07/26/2009 documented as of this encounter (statuses as of 10/08/2023) Resolved Problems Problem Noted Date Diagnosed Date Resolved Date Other specified prophylactic or treatment measure 12/12/2012 12/29/2016 Family history of GI malignancy 05/25/2009 12/29/2016 Benign neoplasm of colon 03/12/200903/2017 Overview: serrated hyperplastic/repeat colonoscopy in 1 yr documented as of this encounter (statuses as of 10/08/2023) Immunizations Name Administration Dates Next Due COVID-19 [...] Description 11/05/2023 8:00 AM EDT Imaging Radiology [address] [place] [address] Scheduled Procedures Name Priority Associated Diagnoses Date/Ti [...] Additional history exists Lipid Panel 06/20/2027 06/20/2022, 02/2019, 12/30/2013, Additional history exists DTaP,Tdap,and Td [...] filedocumented as of this encounter Care Teams Washer Blanket Relationship Specialty Start Date End Date Fernando Barney MD [address] [place] [address] PCP - General Family Medicine 12/26/18 documented as of this encounter
--- OUTSIDE RECORDS SUMMARY | 2024-01-25 13:51 | External Medical Summary ---
Author Name Unknown Address Unknown Organization K01:LABORATORY [facility] [place] [place] - [address] [place] [address] Laboratory Report Ordering Provider Test Date Status CARLITA,WHITNEY 10/15/2023 08:53:00 Final Observation Date Value Abnormality Reference (Units ) Status Albumin 10/15/2023 08:53:00 4.5 3.8-5.0 (g/dL) Final AST (Aspartate aminotransferase) 10/15/2023 08:53:00 19 10-50 (U/L) Final Alk Phos 10/15/2023 08:53:00 93 35-130 (U/L) Final ALT (Alanine aminotransferase) 10/15/2023 08:53:00 24 10-50 (U/L) Final Bilirubin, Total 10/15/2023 08:53:00 1.1 <=1.2 (mg/dL) Final Bilirubin, Direct 10/15/2023 08:53:00 0.2 0.0-0.3 (mg/dL) Final Protein 10/15/2023 08:53:00 6.8 6.0-8.3 (g/dL) Final Performing Location LAB[facility]ORY [facility] [place] [place] - [address] [place] [address]
--- OUTSIDE RECORDS SUMMARY | 2024-01-25 13:51 | External Medical Summary | Summary of Care ---
Author Name Unknown Organization [facility] Address [address] [address] Phone [phone] Care Team Providers Care Senior Principal Software Engineer Name Role Phone Fernando Barney MD Primary Care Provider [phone] Reason for Visit * Reason Comments Follow Up * Evaluate & Treat - Unlimited Visits (Within 30 days (routine)) - Authorized Specialty Diagnoses / Procedures Referred By Contact Referred To Contact Cardiovascular Medicine / Cardiology Diagnoses High triglycerides Hypercholesteremia Fernando Barney MD [address] [place] [address] Referral ID Status Reason Start Date Expiration Date Visits Requested Visits Authorized [id number] Authorized Specialty Services Required 09/24/[phone] Encounter Details Date Type Department Care Team (Late st Contact Info) Description 10/04/2023 8:00 AM EDT Office Visit Cardiology, [facility] [address] [place] [address] Sangeeta Robles CRNP [address] [place] [address] HTN, goal below 140/90*; Hypertensive heart disease without heart failure; Tobacco use Allergies Active Allergy Reactions Criticality Noted Date Comments Lisinopril 08/29/2023 cough documented as of this encounter (statuses as of 10/04/2023) Medications Medication Sig Dispensed Refills Start Date End Date Status ASPIRIN 81 MG PO CHEWIndications:O ther specified prophylactic or treatment measure One pill by mouth once a day with food 100 Tab 5 3 Active Losartan Potassium 50 MG Oral Tablet (Cozaar) Take 1 Tablet by mouth in the morning. 100 Tablet 3 4 Active amLODIPine Besylate 2.5 MG Oral Tablet (Norvasc) Take 1 Tablet by mouth in the morning. 90 Tablet 3 4 Active hydroCHLOROthiazi de 25 MG Oral Tablet (Hydrodiuril) Take 1 Tablet by mouth in the morning. 90 Tablet 3 4 Active Varenicline Tartrate 0.5 MG Oral Tablet (Chantix)Indicati ons:Tobacco use One tab by mouth at bedtime for a week then up to one tab twice a day thereafter 60 Tablet 1 3 10/04/19 24 Discontinued amLODIPine Besylate 2.5 MG Oral Tablet (Norvasc) Take 1 Tablet by mouth in the morning. 34 Tablet 11 3 10/04/19 24 Discontinued(Ref ill) hydroCHLOROthiazi de 25 MG Oral Tablet (Hydrodiuril) Take 1 Tablet by mouth in the morning. 34 Tablet 11 4 10/04/19 24 Discontinued(Ref ill) Hospital, Clinic, or Other Facility Administered Medication Ordered Dose Route Frequency Start Date End Date Status albuterol sulfate (PROVENTIL) (2.5 MG/3ML) 0.083% inhalation solution 2.5 mgIndications:Hypoxia 2.5 mg NEBULIZER Q4H PRN 01/02/2019 Act juana documented as of this encounter (statuses as of 10/04/2023) Active Problems Problem Noted Date Diagnosed Date High triglycerides 06/23/2021 Family history of malignant neoplasm of colon in first degree relative diagnosed when younger than 60 years of age 1206/23/2021 History of adenomatous polyp of colon 06/23/2021 BMI 33.0-33.9,adult 06/23/2021 Hypercholesteremia 08/02/2011 Tobacco use disorder 07/26/2009 documented as of this encounter (statuses as of 10/04/2023) Resolved Problems Problem Noted Date Diagnosed Date Resolved Date Other specified prophylactic or treatment measure 12/12/2012 12/29/2016 Family history of GI malignancy 05/25/2009 12/29/2016 Benign neoplasm of colon 03/12/200903/2017 Overview: serrated hyperplastic/repeat colonoscopy in 1 yr documented as of this encounter (statuses as of 10/04/2023) Immunizations Name Administration Dates Next Due COVID-19 [...] on file documented as of this encounter Last Filed Vital Signs Vital Sign Reading Time Taken Comments Blood Pressure 124/84 10/04/2023 7:50 AM EDT Pulse 76 10/04/2023 7:50 AM EDT Temperature - - Respiratory Rate - - Oxygen Saturation - - Inhaled Oxygen Concentration - - Weight 112.9 kg (249 lb) 10/04/2023 7:50 AM EDT Height - - Body Mass Index 32.85 04/13/2023 8:01 AM EDT documented in this encounter Progress Notes * Sangeeta Robles BUNNY - 10/04/2023 8:00 AM EDT Cardiology Outpatient Visit 10/04/2023 Primary Pulmonologist Intensivist: Dr. Do Past medical history: Hypertension with hypertensive heart disease Dry cough lisinopril Tobacco abuse HPI Very pleasant 63-year-old male presenting to the cardiology office today in routine follow-up. Was last evaluated by the undersigned approximately 6 months ago. Patient carries a history of hypertension with hypertensive heart disease. Since his last appointment amlodipine was started. He also developed a dry cough and lisinopril was discontinued in favor of losartan. Today the patient presents feeling well and offers no acute concerns. Blood pressures well controlled. He denies any exertional chest pain or unusual shortness of breath. No palpitations, dizziness, syncope or near syncope. No orthopnea, PND, or increased lower extremity edema. No fever, chills, cough, hematochezia, melena, or hemoptysis. Patient is compliant with all medications, and offers no side effects. He is actively cutting back on smoking and only smokes 1-2 cigarettes a few times per month. This is a significant improvement from previous. He has not using the Chantix. Current Outpatient Medications Medication Sig Dispense Refill ASPIRIN 81 MG PO CHEW One pill by mouth once a day with food 100 Tab 5 Losartan Potassium 50 MG Oral Tablet (Cozaar) Take 1 Tablet by mouth in the morning. 100 Tablet 3 amLODIPine Besylate 2.5 MG Oral Tablet (Norvasc) Take 1 Tablet by mouth in the morning. 90 Tablet 3 hydroCHLOROthiazide 25 MG Oral Tablet (Hydrodiuril) Take 1 Tablet by mouth in the morning. 90 Tablet 3 Current Facility-Administered Medications Medication Dose Route Frequency Provider Last Rate Last Admin albuterol sulfate (PROVENTIL) (2.5 MG/3ML) 0.083% inhalation solution 2.5 mg 2.5 mg Nebulizer Q4H KYMBERLYN Fernando Barney MD 2.5 mg at 01/03/19 1010 Past Medical History: Diagnosis Date Benign neoplasm of colon 08/11/08 adenomatous, hyperplastic and villous polyp--repeat 6 months Benign neoplasm of colon 03/12/09 serrated hyperplastic/repeat colonoscopy in 1 yr Benign neoplasm of colon 10/20/09 multiple polyps--hyperplastic tissue& diverrticulosos repeat in one yr Calculus of kidney 1988, ,04/22 Family history of colon cancer Tobacco use disorder 07/26/2009 Past Surgical History: Procedure Laterality Date COLONOSCOPY W/ BIOPSY (RECTUM) 06/24/2010 polyps x3 path pendingrepeat in 1 year COLONOSCOPY W/ BIOPSY (RECTUM) 09/01/2011 one 3mm polyp in rectum repeat in 3 years COLONOSCOPY W/ LESION REMOVAL, SNARE 08/11/2008 multiple polyps, recommend 6 month f/u, recommend genetic counseling COLONOSCOPY W/ LESION REMOVAL, SNARE 03/12/2009 multiple polyps serrated hyperplastic/repeat colonoscopy in 1 yr/ COLONOSCOPY W/ LESION REMOVAL, SNARE 10/20/2009 multiple polyps--hyperplastic tissue& diverticulosis repeat in one yr COLONOSCOPY, DIAGNOSTIC (RECTUM) N/A 11/11/2015 COLONOSCOPY FLEXIBLE PROXIMAL DIAGNOSTIC performed by Fernando Sotelo MD at [facility] COLONOSCOPY, DIAGNOSTIC (RECTUM) 01/29/2019 adenomatous polyp, diverticulosis, repeat 3 yrs/[facility] COLONOSCOPY, DIAGNOSTIC (RECTUM) 04/14/2022 benign adenomatous polyp, repeat 5 yrs / COLONOSCOPY FLEXIBLE PROXIMAL DIAGNOSTIC performed by Justin Andino MD at [facility] COLORECTAL CANCER SCREEN; COLON 10/01/2012 COLONOSCOPY CA SCRN HI RISK performed by Fernando Sotelo MD at [facility] COLORECTAL CANCER SCREEN; COLON 11/20/2013 COLONOSCOPY CA SCRN HI RISK performed by Fernando Sotelo MD at [facility]COPY [facility] CYSTOSCOPY/INSERTION OF STENT 04/2001 removal of stent one week later with JSB EGD, FLEXIBLE, W/BIOPSY 10/20/2009 erythema- bx's taken- mild inflammation REMOVE TONSILS & ADENOIDS, UNDER 12 1972 T&A Social History Tobacco Use Smoking status: Every Day Current packs/day: 1.00 Average packs/day: 1 pack/day for 10.0 years (10.0 ttl pk-yrs) Types: Cigarettes Passive exposure: Past Smokeless tobacco: Never Vaping Use Vaping Use: Never used Substance Use Topics Alcohol use: Yes Comment: couple drinks on weekend Drug use: No Review of patient's allergies indicates: Allergen Reactions Lisinopril cough Review of Systems: See HPI for pertinent positives. All others negative, other than those noted in HPI. Physical Exam BP 124/84 | Pulse 76 | Wt 112.9 kg (249 lb) | BMI 32.85 kg/m | BSA 2.41 m General: No acute distress. A+Ox3. HEENT: Normocephalic. Atraumatic. Conjunctiva and sclera clear. NECK: No carotid bruits. No JVD. Carotid upstrokes are brisk. Heart: RRR. S1 and S2 noted without murmur, rubs, gallops. PMI non displaced. Lungs: Clear to auscultation. No wheezes, rhonchi, rales. Abdomen: Normal bowel sounds. Soft. Nontender. No masses or organomegaly. No abdominal bruits. Extremities: No edema. No clubbing or cyanosis. Pulses: radial=2/4, posterior tibial=2/4, dorsalis pedis = 2/4. NEURO: No focal deficits. PSYCH: Normal. Lab data/imaging study review: Dobutamine stress echo report June 20, 2022: The stress echo is negative for inducible ischemia. The qualitative LV ejection fraction is 55-59% (normal). The LV wall thickness is moderately increased (concentric). The left ventricular wall motion is normal. The left ventricular ejection fraction increases normally with stress. No significant valvular disease is present. The aortic root and proximal ascending aorta are mildly enlarged. Impression/Plan: This is a 63 year old male who is being evaluated in the cardiology office for ongoing care/risk management for the below diagnoses. 1. Hypertensive heart disease without heart failure 2. HTN, goal below 140/90 Hypertensive heart disease with moderate concentric LVH. Blood pressure well controlled. Refills provided on all medications. 1. Continue losartan 50 mg daily 2. Continue hydrochlorothiazide 25 mg daily 3. Continue amlodipine 2.5 mg daily 4. Routine blood work ordered. 3. Tobacco use Congratulated patient on reduction cigarette use. Encouraged patient to continue to work on quitting completely. The patient agrees to the above plan and will call with additional questions or concerns. ER with all emergencies advised. Follow Up: Return in about 1 year (around 10/03/2024). I spent a total of 30 minutes on the date of service in preparation, delivery, and documentation ofthe care provided to Jacobo Yang excluding any time spent in the performance of separately billed services. BUNNY Church, Department of Cardiology This chart was completed in part utilizing Fluency Speech Voice Recognition Software. Grammatical errors, random word insertions, prounoun errors, and incomplete sentences are an occasional consequence of this system due to software limitations, ambient noise, and hardware issues. Any formal questions or concerns about the content, text, or information contained within the body of this dictation should be directly addressed to the provider for clarification. documented in this encounter Nursing Notes * Bret Ladd RN - 10/04/2023 7:50 AM EDT Examination Room: room 7 Name: Jacobo Yang Date of : (1960). Reason for Visit: for follow up Interim Hospitalization(s): denies Problems/Concerns: denies Chest Pain/SOB: denies [facility] Discussed: Not applicable [facility] is a way you can talk to your provider online through e-mail. Would you like to sign up? I can activate it for you? ALREADY ACTIVE Patient was instructed to not get up on the exam table until directed and assisted by their provider; patient is to remain seated in the chair/ wheelchair/ exam table for fall prevention and safety reasons. Patient is aware to have assistance to step down off exam table with personnel. Patient voiced full comprehension of instructions. documented in this encounter Plan of Treatment Upcoming Encounters Date Type Department Care Team (Late st Contact Info) Description 11/05/2023 8:00 AM EDT Imaging Radiology [address] [id number] Scheduled Orders Name Type Priority Associated Diagnoses Orde r Schedule CBC Lab Routine Hypertensive heart disease without heart failure HTN, goal below 140/90 Tobacco use Expected: 10/04/2023, Expires: 10/03/2024 HEPATIC FUNCTION PANEL Lab Routine Hypertensive heart disease without heart failure HTN, goal below 140/90 Tobacco use Expected: 10/04/2023, Expires: 10/03/2024 LIPID PANEL WITH DIRECT LDL IF TG IS HIGH Lab Routine Hypertensive heart disease without heart failure HTN, goal below 140/90 Tobacco use Expected: 10/04/2023, Expires: 10/03/2024 Scheduled Procedures Name Priority Associated Diagnoses Date/Ti [...] encounter Visit Diagnoses Diagnosis HTN, goal below 140/90- Primary Unspecified essential hypertension Hypertensive heart disease without heart failure Unspecified hypertensive heart disease without heart failure Tobacco use Tobacco use disorder documented in this encounter Care Teams Senior Principal Software Engineer Relationship Specialty Start Date End Date Fernando Barney MD [address] [place] [address] PCP - General Family Medicine 12/26/18 documented as of this encounter"
--- OUTSIDE RECORDS SUMMARY | 2024-01-25 13:51 | External Medical Summary ---
Author Name Unknown Address Unknown Organization [id number]:[facility] [place] [address] [facility] [address] Laboratory Report Ordering Provider Test Date Status LIZY ZAZUETAISO 10/15/2023 08:53:00 Final Observation Date Value Abnormality Reference (Units ) Status Triglyceride 10/15/2023 08:53:00 158 <=174 ( mg/dL) Final Triglyceride Reference Range s (mg/dL):
<150 Acceptable
150-174 Borderline high
175-499 High
>=500 Very high Cholesterol 10/15/2023 08:53:00 150 <200 (mg /dL) Final Total Cholesterol Reference Ranges (mg/dL):
<200 Desirable
200-239 Borderline high
>=240 High HDL 10/15/2023 08:53:00 35 Below low normal >39 (mg/dL) Final HDL Cholesterol Reference Ra nges (mg/dL):
>=60 High (Desirable)
<50 Low (Undesirable) For Females
<40 Low (Undesirable) For Males NON-HDL CHOLESTEROL 10/15/2023 08:53:00 115 <=159 (mg/dL) Final Non-HDL Cholesterol Referenc e Range (mg/dL):
<100 Target level for high risk ASCVD patient
<130 Optimal for general population
130-159 Near optimal for general population
160-189 Borderline High
190-219 High
>=220 Very High LDL, (calculated) 10/15/2023 08:53:00 83 <= 129 (mg/dL) Final LDL Cholesterol Reference Ra nges (mg/dL):
<70 Target level for high risk ASCVD patient
<100 Optimal for general population
100-129 Near optimal for general population
130-159 Borderline high
160-189 High
>=190 Very high Performing Location [facility] [place] [address] [facility] [address]
--- OUTSIDE RECORDS SUMMARY | 2024-01-25 13:51 | External Medical Summary | Summary of Care ---
Author Name Unknown Organization [facility] Address [address] [address] Phone [phone] Care Team Providers Care Junior Bookkeeper Name Role Phone Fernando Barney MD Primary Care Provider [phone] Reason for Visit * Reason Onset Date Comments Test Results 10/17/2023 Encounter Details Date Type Department Care Team (Late st Contact Info) Description 10/17/2023 Telephone Cardiology, [facility] [address] [place] [id number] Sangeeta Robles CRNP [address] [place] [id number] Test Results Allergies Active Allergy Reactions Criticality Noted Date Comments Lisinopril 08/29/2023 cough documented as of this encounter (statuses as of 10/18/2023) Medications Medication Sig Dispensed Refills Start Date [...] as of this encounter (statuses as of 10/18/2023) Active Problems Problem Noted Date Diagnosed Date High triglycerides 06/23/2021 Family history of malignant neoplasm of colon in first degree relative diagnosed when younger than 60 years of age 1206/23/2021 History of adenomatous polyp of colon 06/23/2021 BMI 33.0-33.9,adult 06/23/2021 Hypercholesteremia 08/02/2011 Tobacco use disorder 07/26/2009 documented as of this encounter (statuses as of 10/18/2023) Resolved Problems Problem Noted Date Diagnosed Date Resolved Date Other specified prophylactic or treatment measure 12/12/2012 12/29/2016 Family history of GI malignancy 05/25/2009 12/29/2016 Benign neoplasm of colon 03/12/200903/2017 Overview: serrated hyperplastic/repeat colonoscopy in 1 yr documented as of this encounter (statuses as of 10/18/2023) Immunizations Name Administration Dates Next Due COVID-19 [...] encounter Miscellaneous Notes * Telephone Encounter - Bret Ladd RN - 10/18/2023 9:50 AM EDT Pending Prescriptions: Disp Refills Rosuvastatin Calcium 10 MG Oral Tablet (C*90 Tab*3 Sig: Take 1 Tablet by mouth in the morning. Last Visit: 10/04/2023 (in office), Visit date not found (telemedicine) Next Visit: Visit date not found Last medication order date: new Have you choosen a preferred pharm?? yes Patient Active Problem List Diagnosis Code Tobacco use disorder F17.200 Hypercholesteremia E78.00 High triglycerides E78.1 Family history of malignant neoplasm of colon in first degree relative diagnosed when younger than 60 years of age Z80.0 History of adenomatous polyp of colon Z86.010 BMI 33.0-33.9,adult Z68.33 Labs: Lab Results Component Value Date/Time CREATININE - [facility] 0.9 09/20/2023 07:54 AM CREATININE - [facility] 0.9 12/28/2018 08:57 AM CREATININE-OUTSIDE LAB 0.74 06/28/2022 12:00 AM Lab Results Component Value Date/Time POTASSIUM - [facility] 3.9 09/20/2023 07:54 AM POTASSIUM - [facility] 5.0 12/28/2018 08:57 AM POTASSIUM-OUTSIDE LAB 4.3 06/28/2022 12:00 AM Lab Results Component Value Date/Time TSH - [facility] 1.03 11/12/1997 02:00 PM Lab Results Component Value Date/Time LDL CHOLESTEROL (CALCULATED) - [facility] 83 10/15/2023 08:53 AM LDL CHOLESTEROL (CALCULATED) - [facility] 83 06/20/2022 10:25 AM LDL CHOLESTEROL (CALCULATED) - [facility] UNINTERPRETABLE RESULT 12/30/2013 09:07 AM LDL CHOLESTEROL (CALCULATED) - [facility] 82 12/12/2012 10:13 AM LDL CHOLESTEROL (DIRECT MEASURE) - [facility] 97 12/28/2018 08:57 AM Lab Results Component Value Date/Time ALT - [facility] 24 10/15/2023 08:53 AM ALT - [facility] 29 12/30/2013 09:07 AM Hemoglobin AIC Results: No results found for: "HEMOGLOBIN A1C" * Telephone Encounter - Henry Bocanegra LPN - 10/17/2023 2:20 PM EDT Sent patient a [employer] message to make aware. Awaiting reply to pend orders. ----- Message from BUNNY Tiwari sent at 10/16/2023 7:41 AM EDT ----- LDL controlled however he is at risk for ASCVD. Recommend low dose statin, crestor 10 mg daily-- repeat lipids and lfts in 3 months documented in this encounter Plan of Treatment Upcoming Encounters Date Type Department Care Team (Late st Contact Info) Description 11/05/2023 8:00 AM EDT Imaging Radiology [address] [place] [address] Scheduled Orders Name Type Priority Associated Diagnoses Orde r Schedule LIPID PANEL WITH DIRECT LDL IF TG IS HIGH Lab Routine Hypertensive heart disease without heart failure HTN, goal below 140/90 Expected: 10/18/2023, Expires: 10/17/2024 HEPATIC FUNCTION PANEL Lab Routine Hypertensive heart disease without heart failure HTN, goal below 140/90 Expected: 10/18/2023, Expires: 10/17/2024 Scheduled Procedures Name Priority Associated Diagnoses Date/Ti [...] Diagnoses Diagnosis Hypertensive heart disease without heart failure- Primary Unspecified hypertensive heart disease without heart failure HTN, goal below 140/90 Unspecified essential hypertension documented in this encounter Care Teams Junior Bookkeeper Relationship Specialty Start Date End Date Fernando Barney MD [address] [place] [address] PCP - General Family Medicine 12/26/18 documented as of this encounter
--- OUTSIDE RECORDS SUMMARY | 2024-01-25 13:51 | External Medical Summary | Summary of Care ---
Author Name Unknown Organization [facility] Address [address] [facility] [place] [address] Phone [phone] Care Team Providers Care Imaging Clerk Name Role Phone Fernando Barney MD Primary Care Provider Reason for Referral * Evaluate & Treat - Unlimited Visits (Within 30 days (routine)) - Authorized Specialty Diagnoses / Procedures Referred By Contact Referred To Contact Cardiovascular Medicine / Cardiology Diagnoses High triglycerides Hypercholesteremia Fernando Barney MD [address] [place] [address] Referral ID Status Reason Start Date Expiration Date Visits Requested Visits Authorized [id number] Authorized Specialty Services Required 09/24/[phone] Question Answer Referral Priority Within 30 days (routine) Where should this appointment be scheduled? [facility] To which of the following clinics are you referring your patient? General Cardiology Clinic Reason for Visit * Reason Onset Date Comments Referral 09/24/2023 Encounter Details Date Type Department Care Team (Late st Contact Info) Description 09/24/2023 Telephone [facility] [address] [place] [address] Fernando Barney MD [address] [place] [address] Referral Allergies Active Allergy Reactions Criticality Noted Date Comments Lisinopril 08/29/2023 cough documented as of this encounter (statuses as of 09/24/2023) Medications Medication Sig Dispensed Refills Start Date [...] as of this encounter (statuses as of 09/24/2023) Active Problems Problem Noted Date Diagnosed Date High triglycerides 06/23/2021 Family history of malignant neoplasm of colon in first degree relative diagnosed when younger than 60 years of age 1206/23/2021 History of adenomatous polyp of colon 06/23/2021 BMI 33.0-33.9,adult 06/23/2021 Hypercholesteremia 08/02/2011 Tobacco use disorder 07/26/2009 documented as of this encounter (statuses as of 09/24/2023) Resolved Problems Problem Noted Date Diagnosed Date Resolved Date Other specified prophylactic or treatment measure 12/12/2012 12/29/2016 Family history of GI malignancy 05/25/2009 12/29/2016 Benign neoplasm of colon 03/12/200903/2017 Overview: serrated hyperplastic/repeat colonoscopy in 1 yr documented as of this encounter (statuses as of 09/24/2023) Immunizations Name Administration Dates Next Due COVID-19 [...] encounter Miscellaneous Notes * Telephone Encounter - Leticia Blake RN - 09/24/2023 9:58 AM EST Patient's insurance requires updated referral for upcoming Cardiology evaluation 10/04/23. Referral pended, please sign if agreeable. Once signed, please route to scheduling to link with appointment. Thank you. documented in this encounter Plan of Treatment Upcoming Encounters Date Type Department Care Team (Late st Contact Info) Description 10/04/2023 8:00 AM EDT Office Visit Cardiology, [facility] [address] [place] [address] Sangeeta Robles CRNP [address] [place] [address] 11/05/2023 8:00 AM EDT Imaging Radiology [address] [place] [address] Scheduled Procedures Name Priority Associated Diagnoses Date/Ti me COLONOSCOPY FLEXIBLE PROXIMAL DIAGNOSTIC Recall History of colon polyps ESOPHAGOGASTRODUODENOSCOPY ( EGD), FLEXIBLE, TRANSORAL, DIAGNOSTIC Recall Esophagitis Scheduled Referrals Name Type Priority Associated Diagnoses Orde r Schedule CARDIOLOGY REFERRAL OP Referral Within 30 days (routine) High triglycerides Hypercholesteremia Ordered: 09/24/2023 Health Maintenance Due Date Last Done Comments [...] Additional history exists Lipid Panel 06/20/2027 06/20/2022, 06/0 02/2019, 12/30/2013, Additional history exists DTaP,Tdap,and Td [...] as of this encounter Visit Diagnoses Diagnosis High triglycerides- Primary Pure hyperglyceridemia Hypercholesteremia Pure hypercholesterolemia documented in this encounter Care Teams Imaging Clerk Relationship Specialty Start Date End Date Fernando Barney MD [address] [place] [address] PCP - General Family Medicine 12/26/18 documented as of this encounter
--- OUTSIDE RECORDS SUMMARY | 2024-01-25 13:51 | External Medical Summary | Summary of Care ---
Author Name Unknown Organization [facility] [address] [address] Phone [phone] Care Team Providers Care Television Engineering Teacher Name Role Phone Fernando Barney MD Primary Care Provider [phone] Encounter Details Date Type Department Care Team (Late st Contact Info) Description 09/03/2023 Orders Only PATIENT PORTAL DO NOT DELETE THIS DEPT USED BY [place] [id number] Allergies Active Allergy Reactions Criticality Noted Date Comments Lisinopril 08/29/2023 cough documented as of this encounter (statuses as of 09/03/2023) Medications Medication Sig Dispensed Refills Start Date [...] as of this encounter (statuses as of 09/03/2023) Active Problems Problem Noted Date Diagnosed Date High triglycerides 06/23/2021 Family history of malignant neoplasm of colon in first degree relative diagnosed when younger than 60 years of age 1206/23/2021 History of adenomatous polyp of colon 06/23/2021 BMI 33.0-33.9,adult 06/23/2021 Hypercholesteremia 08/02/2011 Tobacco use disorder 07/26/2009 documented as of this encounter (statuses as of 09/03/2023) Resolved Problems Problem Noted Date Diagnosed Date Resolved Date Other specified prophylactic or treatment measure 12/12/2012 12/29/2016 Family history of GI malignancy 05/25/2009 12/29/2016 Benign neoplasm of colon 03/12/200903/2017 Overview: serrated hyperplastic/repeat colonoscopy in 1 yr documented as of this encounter (statuses as of 09/03/2023) Immunizations Name Administration Dates Next Due COVID-19 [...] 10/04/2023 8:00 AM EDT [facility] [address] [facility] [place] [address] Sangeeta Robles CRNP [address] [place] [address] 11/05/2023 8:00 AM EDT Imaging Radiology [address] [facility] [place] [address] Scheduled Procedures Name Priority Associated Diagnoses Date/Ti me COLONOSCOPY FLEXIBLE PROXIMAL DIAGNOSTIC Recall History of colon polyps ESOPHAGOGASTRODUODENOSCOPY ( EGD), FLEXIBLE, TRANSORAL, DIAGNOSTIC Recall Esophagitis Health Maintenance Due Date Last Done Comments Pneumococcal Vaccine: Pediatrics (0 to 5 Years) and At-Risk Patients (6 to 64 Years) (1 - PCV) 1966 HIV Screening 1975 Hepatitis [...] filedocumented as of this encounter Care Teams Television Engineering Teacher Relationship Specialty Start Date End Date Fernando Barney MD [address] [place] [address] PCP - General Family Medicine 12/26/18 documented as of this encounter
--- OUTSIDE RECORDS SUMMARY | 2024-01-25 13:51 | External Medical Summary ---
Author Name Unknown Address Unknown Organization [id number]:[facility] - [facility] [address] [facility] [address] Laboratory Report Ordering Provider Test Date Status WHITNEY ZAZUETA 10/15/2023 08:53:00 Final Observation Date Value Abnormality Reference (Units ) Status WBC, Total 10/15/2023 08:53:00 9.30 4.00-10.80 (K/uL) Final RBC 10/15/2023 08:53:00 4.91 4.50-5.25 (M/uL) Final Hemoglobin 10/15/2023 08:53:00 16.3 14.0-16.8 (g/dL) Final HCT 10/15/2023 08:53:00 48.4 40.0-48.4 (%) Final MCV 10/15/2023 08:53:00 98.6 82.0-99.5 (fL) Final MCH 10/15/2023 08:53:00 33.2 27.0-34.0 (pg) Final MCHC 10/15/2023 08:53:00 33.7 32.0-36.0 (g/dL) Final RDW 10/15/2023 08:53:00 13.2 11.5-15.5 (%) Final Platelets 10/15/2023 08:53:00 336 140-400 (K/uL) Final MPV 10/15/2023 08:53:00 12.0 6.6-11.1 (fL) Final Nucleated erythrocytes/100 leukocytes [Ratio] in Blood by Automated count 10/15/2023 08:53:00 0 <=0 (/100 WBCs) Final Performing Location [facility] - [address] [place] [address]
--- OUTSIDE RECORDS SUMMARY | 2024-01-25 13:51 | External Medical Summary | Summary of Care ---
Author Name Unknown Organization [facility] Address [address] [facility] [place] [address] Phone [phone] Care Team Providers Care Mastic Worker Name Role Phone Fernando Barney MD Primary Care Provider [phone] Reason for Referral * Evaluate & Treat - Unlimited Visits (Within 30 days (routine)) - Authorized Specialty Diagnoses / Procedures Referred By Contact Referred To Contact Cardiovascular Medicine / Cardiology Diagnoses High triglycerides Hypercholesteremia Fernando Barney MD [address] [place] [address] Referral ID Status Reason Start Date Expiration Date Visits Requested Visits Authorized [id number] Authorized Specialty Services Required 09/24/[phone] Question Answer Referral Priority Within 30 days (routine) Where should this appointment be scheduled? [facility] To which of the following clinics are you referring your patient? General Cardiology Clinic Reason for Visit * Reason Onset Date Comments Referral 09/24/2023 Encounter Details Date Type Department Care Team (Late st Contact Info) Description 09/24/2023 Telephone [facility] [address] [place] [address] Fernando Barney MD [address] [place] [address] Referral Allergies Active Allergy Reactions Criticality Noted Date Comments Lisinopril 08/29/2023 cough documented as of this encounter (statuses as of 09/25/2023) Medications Medication Sig Dispensed Refills Start Date [...] as of this encounter (statuses as of 09/25/2023) Active Problems Problem Noted Date Diagnosed Date High triglycerides 06/23/2021 Family history of malignant neoplasm of colon in first degree relative diagnosed when younger than 60 years of age 1206/23/2021 History of adenomatous polyp of colon 06/23/2021 BMI 33.0-33.9,adult 06/23/2021 Hypercholesteremia 08/02/2011 Tobacco use disorder 07/26/2009 documented as of this encounter (statuses as of 09/25/2023) Resolved Problems Problem Noted Date Diagnosed Date Resolved Date Other specified prophylactic or treatment measure 12/12/2012 12/29/2016 Family history of GI malignancy 05/25/2009 12/29/2016 Benign neoplasm of colon 03/12/200903/2017 Overview: serrated hyperplastic/repeat colonoscopy in 1 yr documented as of this encounter (statuses as of 09/25/2023) Immunizations Name Administration Dates Next Due COVID-19 [...] encounter Miscellaneous Notes * Telephone Encounter - Jhoana Stuart OSA - 09/25/2023 9:04 AM EST Linked. 09/25/2023 * Telephone Encounter - Leticia Blake RN [...] 10/04/2023 8:00 AM EDT Office Visit Cardiology, [facility] [address] [facility] [place] [address] Sangeeta Robles CRNP [address] [facility] [place] [address] 11/05/2023 8:00 AM EDT Imaging Radiology [facility] 1st Floor, [place] [address] [facility] [place] [address] Scheduled Procedures Name Priority Associated Diagnoses Date/Ti [...] hypercholesterolemia documented in this encounter Care Teams Mastic Worker Relationship Specialty Start Date End Date Fernando Barney MD [address] [place] [address] PCP - General Family Medicine 12/26/18 documented as of this encounter
--- NOTE | 2024-01-25 13:56 | History & Physical Report ---
Date of Service January 25, 2024 Assessment & Plan (1) Cellulitis of right abdominal wall: (2) Illness: Plan: Patient is 63-year-old male with PMH HTN, hypertensive heart disease without heart failure, former tobacco use presented to ER with c/o fatigue, sweats, ch ills, red area to right abdomen, and dyspnea on exertion x 3 days In ER afebrile, vitals stable. No leukocytosis, normal lactate, no thrombocytopenia or elevated LFTs DDX: cellulitis, erythema migrans, tick borne illness Blood cultures pending Lyme, anaplasma, babesia labs pending Had dose of 1GM IM Rocephin and 1 tab Augmentin this morning outpatient Unasyn, doxycycline for now CBC, BMP in am Area of erythema marked for ongoing monitoring (3) SOB (shortness of breath): (4) Hypoxemia: Plan: Exertional SOB with onset of illness, rash symptoms 3 days ago. Denies CP, denies prior exertional SOB In ER O2 sat low 90's and noted to have intermittent drops into high 80's on RA. D-Dimer: 870, BNP WNL. H&H WNL Negative biofire respiratory panel. Placed on supplemental oxygen 2L with sat up to 95% CXR: No infiltrate, no pleural effusions, no pneumothorax CTA Chest: No evidence for a pulmonary embolus. Mild dependent changes seen within the lung bases posteriorly. Otherwise, no focal lung consolidations to suggest a pneumonia. Obtain EKG Does not appear volume overloaded currently Hx prior tobacco use. ?undiagnosed COPD, viral bronchitis Echo Monitor pulse oximetry Supplemental oxygen as needed May need 2 step On antibiotics as above (5) HTN (hypertension): (6) Hypertensive heart disease: Plan: BP stable currently Continue aspirin, amlodipine, losartan, HCTZ, rosuvastatin Follows with cardiology, Dr Do. Dobutamine stress echo 06/20/2022: EF: 55-59% LV wall thickness moderately increased, LV wall motion normal, no significant valvular disease, aortic root and proximal ascending aorta mildly enlarged. Stress echo negative for selene cible ischemia (7) Former tobacco use: Plan: Former tobacco use 1ppd x 40 years. Quit several months ago. DVT Prophylaxis Lovenox SQ admit med tele Full Code as per discussion with pt Follows with Dr Barney for routine care Pt was seen and care coordinated with Dr Tay. See addendum I spent a total of 76 minutes reviewing notes, outpatient records, labs, medication, coordinating, documenting and providing care for this patient excluding time spent in the performance of separately billed services. History of Present Illness Chief Complaint: "not feeling well" Primary Care Provider: Truong Barney MD Patient is 63-year-old male with PMH HTN, hypertensive heart disease without heart failure, former tobacco use presented to ER with c/o fatigue, sweats, chills, red area to right abdomen, and dyspnea on exertion x 3 days. Reports 3 days ago noticed reddened area to right lower abdomen along his waistline which is tender to touch. He thought maybe he had a insect bite but is unsure. He denies any known tick bites. He reports he works outside and is outside on a daily basis. 3 days ago also started with sweats, chills, fatigue, generalized [place]. He reports he slept 20 hours yesterday. Past couple days has also noted dyspnea on exertion. Denies any chest pain. He has not been taking his temperature at home. Denies any other noted rashes, denies noted drainage from area. Denies history of MRSA. States he has had a slight intermittent cough the past couple of days. Seen in outpatient clinic today for concern of "bug bite" to waistline with associated sweats, fatigue, decreased appetite and shortness of breath. He was given a IM injection of 1 g Rocephin and sent with prescription for Augmentin per clinic note from 01/25/24. It is reported was noted to be hypoxic and patient was to watch O2 sats at home. Patient presented to ER later today as noted O2 sats in the 80's and he has continued fatigue. Denies N/V/D/C, dizziness, syncope, vision changes, neck pain, CP, orthopnea, palpitations, hemoptysis, sore throat, choking, otalgia, rhinorrhea, abdominal pain, paresthesias, extremity edema, rashes, urinary symptoms. Denies ill contacts. Allergies Allergy/AdvReac Type Severity Reaction Status Date / Time bee venom protein (honey bee) Allergy Severe SWELLING Verified 06/28/22 10:18 No Known Allergies Allergy Unknown Verified 06/28/22 10:18 Home Medications Medication Instructions Recorded Confirmed Type amlodipine 2.5 mg tablet 2.5 mg PO DAILY 01/25/24 01/25/24 History aspirin 81 mg tablet,delayed 81 mg PO DAILY 01/25/24 01/25/24 History release hydrochlorothiazide 25 mg tablet 25 mg PO DAILY 01/25/24 01/25/24 History losartan 50 mg tablet 50 mg PO DAILY 01/25/24 01/25/24 History rosuvastatin 10 mg tablet 10 mg PO DAILY 01/25/24 01/25/24 History Past Med/Surg History Problem List (Updated 01/25/24 @ 15:15 by Swathi Sellers PA-C) Hypertensive heart disease HTN (hypertension) Former tobacco use Illness Cellulitis of right abdominal wall Bug bite (Acute) COPD (chronic obstructive pulmonary disease) (Acute) SOB (shortness of breath) (Acute) Hypoxemia (Acute) Encounter for pre-operative examination Adenomatous polyps Tear of lateral meniscus of right knee Tobacco use disorder, continuous Medical History Hypercholesteremia Per records Abnormal EKG Preop EKG showing T wave abnormality (consider lateral schemia) --> referred to Dr. Do for stress test and stress test WNL 06/20/22. Surgical History History of esophagogastroduodenoscopy (EGD) History of tonsillectomy History of colonoscopy Family History Grandmother (Maternal) Family hx of colon cancer Mother Family hx of colon cancer Brother Family hx of colon cancer Social History (Updated 01/25/24 @ 15:47 by Swathi Sellers PA-C) Smoking Status: Former smoker Cigarettes Per Day: 1 ppd; Second Hand Exposure: No; Do You Dip or Chew Tobacco: No; Hx Alcohol Use: Yes (1-2 beers daily. 4 days a week ) Alcohol type: beer Hx Substance Use: No Preferred Language: Maltese Communication Ability: Effective Ux Design Manager Required: No Beliefs That Will Affect Care: None Current Living Situation: Spouse and Family Feels Safe at Home: Yes Assistive Devices: Glasses Review of Systems Review of Systems: All systems reviewed & are unremarkable except as noted in HPI & below Physical Exam Physical Exam: General: no distress, WDWN Head: normocephalic, atraumatic Eyes: conjunctiva non-injected, anicteric ENT: normal inspection external ears, nose, mucous membranes moist Neck: supple, trachea midline Lungs: clear, no respiratory distress, no wheezing/rhonchi/rales CV: RRR, no murmur, no pretibial edema Abd: normal BS, soft, non-tender Ext: no cyanosis, no calf tenderness Neuro: A&O x 3, no focal deficits noted, normal affect Skin: warm, dry, +oval area of erythema with central area with slight purple coloration without fluctuance and no drainage to right lower abdomen, area warm and tender to palpation. No other rashes noted Results & Data Results & Data Vital Signs (Past 12 Hours) Vital Signs Temp Pulse Resp BP Pulse Ox O2 Del Method 01/25/24 12:18 83 01/25/24 11:52 88 L Room Air 01/25/24 11:33 Room Air 01/25/24 11:30 89 24 89 L 01/25/24 11:30 139/74 01/25/24 11:27 89 24 91 01/25/24 11:27 Room Air 01/25/24 11:25 142/83 H 01/25/24 10:44 37.0 C 98 H 18 128/82 91 Room Air Laboratory Results Short CBC 01/25/24 Range/Units 11:15 WBC 8.23 (4.8-10.8) K/ul Hgb 15.2 (14.0-18.0) g/dl Hct 43.9 (42.0-52.0) % Plt Count 284 (130-400) K/uL BMP 01/25/24 11:15 Sodium 135 L Potassium 3.5 Chloride 99 Carbon Dioxide 29 BUN 18 Creatinine 0.97 Glucose 95 Calcium 9.0 Liver Function 01/25/24 Range/Units 11:15 Total Bilirubin 1.2 H (0.2-1.0) mg/dl AST 24 (13-39) U/L ALT 27 (7-52) U/L Alkaline Phosphatase 74 (34-104) U/L Albumin 4.2 (3.4-5.0) gm/dl Diagnostic Findings Chest X-Ray 01/25/24 11:00 XR chest 1V portable HISTORY: Chest pain, nonspecific COMPARISON: None. FINDINGS: The lungs are clear. Cardiac silhouette is normal in size. No pleural effusions. No pneumothorax. IMPRESSION: No acute process. ACT 112: Negative or not required by law. Electronically signed by: Julien Loredo M.D. 01/25/2024 11:23 AM Chest CTA 01/25/24 12:33 CHEST CTA for PULMONARY ARTERIES CT DOSE: HISTORY: Atypical chest pain. Shortness of breath. TECHNIQUE: Multiaxial CT images of the chest were performed following the intravenous administration of contrast to evaluate the pulmonary arteries. 3D/Maximal intensity projection images were also obtained. Sagittal and coronal reformations were also reviewed. A dose lowering technique was utilized adhering to the principles of ALARA. COMPARISON STUDY: None. FINDINGS: Normal caliber thoracic aorta with no evidence for a dissection. The heart is normal in size. No filling defects within the pulmonary arteries to suggest a pulmonary embolus. Limited views of the upper abdomen demonstrate a normal liver, spleen, and adrenal glands. Normal esophagus. There is a 13 mm left thyroid nodule. This does not meet CT criteria for follow-up at this time. No pleural or pericardial effusions. No mediastinal or hilar lymphadenopathy. No acute fractures identified. No pneumothorax. The central airways are patent. Mild emphysema is noted. Mild dependent changes seen within the lower lobes posteriorly. Otherwise, no focal lung consolidations to suggest pneumonia. No evidence for pulmonary edema. IMPRESSION: 1. No evidence for a pulmonary embolus. 2. Mild dependent changes seen within the lung bases posteriorly. Otherwise, no focal lung consolidations to suggest a pneumonia. ACT 112: Negative or not required by law. Electronically signed by: Julien Loredo M.D. 01/25/2024 1:23 PM Supervising Physician Co-Signing Physician Notes Attending addendum: The patient was seen and examined in emergency room in presence of the He has been complaining of shortness of breath since Sunday and prior to that he had a spider bite in the right groin He was sent in from doctor's office with low saturation and shortness of breath Still having shortness of breath but no cough, phlegm, fever or chills and denies any nausea and or vomiting Minimal swelling and surrounding redness involving the bite area On examination Lying in bed with mild respiratory distress Hemodynamically stable Chest-clear to auscultate bilaterally Heart-S1, S2. Regular Abdomen-benign. Right groin has the bite truong with surrounding swelling and inflammation which is elongated MANAGER OF APPLICATION DEVELOPMENT-alert, awake and oriented x 3 His labs, medications and imaging studies reviewed Shortness of breath without any history of asthma and or COPD. Smoker but recently quit Insect bite, likely spider. Will check Lyme and Anaplasma titer Start Unasyn and doxycycline for now Agree and take the responsibility of the assessment and plan as outlined above by Swathi Tay
[2024-01-25] MEDS: DOXYCYCLINE HYCLATE 100 MG CAP PO STA (14:43)
[2024-01-25] MEDS ORDERED: ONDANSETRON INJ 2 MG/ML 2 ML VIAL IV PRN (17:52)
[2024-01-25] MEDS ORDERED: POLYETHYLENE (MIRALAX) 17 GM PACK PO PRN (17:52)
[2024-01-25] MEDS ORDERED: ACETAMINOPHEN 325 MG TAB PO PRN (17:52)
[2024-01-25] MEDS: ACETAMINOPHEN 500 MG TAB PO ONE (18:15)
[2024-01-25] MEDS: IBUPROFEN 600 MG TAB PO STA (19:13)
[2024-01-25] MEDS: ENOXAPARIN INJ 40 MG/0.4 ML SYR SQ SCH (19:14)
[2024-01-25] MEDS: AMPICILLIN/SULBACTAM SOD 3,000 MG in SODIUM CHLOR 0.9% MINI-B 100 ML IV SCH (19:14)
[2024-01-25] MEDS: DOXYCYCLINE HYCLATE 100 MG in DEXTROSE 5% MINI-B 100 ML IV SCH (20:51)
[2024-01-25] MEDS ORDERED: DOXYCYCLINE HYCLATE 100 MG CAP PO SCH (21:00)
[2024-01-25] MEDS: SODIUM CHLORIDE 0.9% 500 ML IV ONE (21:37)
--- OUTSIDE RECORDS SUMMARY | 2024-01-25 21:38 | External Medical Summary | Summary of Care ---
Author Name Unknown Organization [facility] [address] [facility] [address] [address] Phone [phone] Care Team Providers Care Rag Collector Name Role Phone Fernando Barney MD Primary Care Provider [phone] Reason for Visit * Reason Comments Acute Pt states that he gaspar s a bug bite on the R side of his waist band, cold, sweats, fatigue, no appetite, and sob when walking on stairs Encounter Details Date Type Department Care Team (Late st Contact Info) Description 01/25/2024 9:00 AM EDT Office Visit [facility] [address] [place] [id number] Marissa Farris PA-C [address], [place] [id number] Cellulitis of flank* Allergies Active Allergy Reactions Criticality Noted Date Comments Lisinopril 08/29/2023 cough documented as of this encounter (statuses as of 01/25/2024) Medications Medication Sig Dispensed Refills Start Date [...] Active Rosuvastatin Calcium 10 MG Oral Tablet (Crestor)Indications :Hypertensive heart disease without heart failure,HTN, goal below 140/90 Take 1 Tablet by mouth in the morning. 90 Tablet 3 10/18/2023 Active Amoxicillin-Pot Clavulanate 875-125 MG Oral Tablet (Augmentin)Indicatio ns:Cellulitis of flank Take 1 Tablet by mouth in the morning and 1 Tablet before bedtime. Do all this for 10 days. 20 Tablet 01/25/2024 02/04/2024 Active Hospital, Clinic, or Other Facility Administered Medication Ordered Dose Route Frequency Start Date End Date Status albuterol sulfate (PROVENTIL) (2.5 MG/3ML) 0.083% inhalation solution 2.5 mgIndications:Hypoxia 2.5 mg NEBULIZER Q4H PRN 01/02/2019 Act juana cefTRIAXone (Rocephin) inj 1 gIndications:Cellulitis of flank 1 g IM ONCE 01/25/2024 01/25/2024 Ended Lidocaine 1 % (PF) inj 1 mLIndications:Celluliti s of flank 1 mL IM ONCE 01/25/2024 01/25/2024 Ended documented as of this encounter (statuses as of 01/25/2024) Active Problems Problem Noted Date Diagnosed Date High triglycerides 06/23/2021 Family history of malignant neoplasm of colon in first degree relative diagnosed when younger than 60 years of age 1206/23/2021 History of adenomatous polyp of colon 06/23/2021 BMI 33.0-33.9,adult 06/23/2021 Hypercholesteremia 08/02/2011 Tobacco use disorder 07/26/2009 documented as of this encounter (statuses as of 01/25/2024) Resolved Problems Problem Noted Date Diagnosed Date Resolved Date Other specified prophylactic or treatment measure 12/12/2012 12/29/2016 Family history of GI malignancy 05/25/2009 12/29/2016 Benign neoplasm of colon 03/12/200903/2017 Overview: serrated hyperplastic/repeat colonoscopy in 1 yr documented as of this encounter (statuses as of 01/25/2024) Immunizations Name Administration Dates Next Due COVID-19 mRNA, LNP-s, No Pre serve, 2-Dose Series (Moderna) 12/21/2020,11/16/2020 TD - Tetanus/Diptheria (ADULT) 05/23/2001 TD, Preservative Free 12/12/2012 TDAP (age 10 and older)(Boostrix) 01/02/2023 documented as of this encounter Social History Tobacco Use Types Packs/Day Years Used Date Smoking Tobacco: Every Day Cigarettes 1 10 Passive Smoke Exposure: Past Smokeless Tobacco: Never Tobacco Cessation:Ready to Q uit: Not Asked; Counseling Given: Not Answered Alcohol Use Standard Drinks/Week Comments Yes 0 [...] money to get more. Never true 05/15/2023 Childcare Answer Date Recorded Do you feel overwhelmed with taking care of a child, family member or friend? No 05/15/2023 Does your family need help f inding childcare? (Household - for ages 0-17 years) Not on file 05/15/2023 Clothing Answer Date Recorded Have you been unable to get clothing when it was really needed? No 05/15/2023 Is your family able to get c lothes or diapers when needed? (Household - for ages 0-17 years) Not on file 05/15/2023 Personal Safety Answer Date Recorded Do you feel unsafe or have concerns for your saf ety? No 05/15/2023 Do you have concerns for you r family's safety? (Household - for ages 0-17 years) Not on file 05/15/2023 Utilities Answer Date Recorded Do you have trouble paying y our heating, water, or electric bill? No 05/15/2023 Is your family able to pay t he heat, water, or electric bill? (Household - for ages 0-17 years) Not on file 05/15/2023 Does your family have access to good internet? (Household - for ages 0-17 years) Not on file 05/15/2023 Employment Status Answer Date Recorded Are you unemployed or without regular income? No 05/15/2023 Does the household have a re gular source of income? (Household - for ages 0-17 years) Not on file 05/15/2023 Social Connections Answer Date Recorded How often do you feel lonely or isolated from th ose around you? Never 05/15/2023 Financial Resource Strain Answer Date R ecorded Do you have any trouble payi ng for your medications, or do you think you might in the future? No 05/15/2023 Does your family have troubl e paying for medicine? (Household - for ages 0-17 years) Not on file 05/15/2023 Transportation Needs Answer Date Record ed READ ONLY Do you have troubl e getting a ride to medical visits or work? Never True 05/15/2023 Does your family have a hard time getting a ride to doctors visits? (Household - for ages 0-17 years) Not on file 05/15/2023 Has lack of transportation k ept you from medical appointments, meetings, work, or from getting things needed for daily living? Check all that apply. (Adult - for ages 18 years and over) Not on file 05/15/2023 Do you (or your family) have trouble finding or paying for a ride (transportation)? (Household - for ages 0-17 years) Not on file 05/15/2023 Housing Stability Answer Date Recorded Do you currently live in a s helter or have no steady place to sleep at night? No 05/15/2023 READ ONLY Do you think you a re at risk of becoming homeless? No 05/15/2023 Does your family worry about paying for your home or becoming homeless? (Household - for ages 0-17 years) Not on file 1 Are you homeless or worried that you might be in the future? (Adult - for ages 18 years and over) Not on file Are you (or your family) sofía eless or worried that you might be in the future? (Household - for ages 0-17 years) Not on file Food Insecurity Answer Date Recorded Do you need food for this week? No 05/15/2023 Are you able to get enough f ood for your family? (Household - for ages 0-17 years) Not on file 05/15/2023 Does your family need food t his week? (Household - for ages 0-17 years) Not on file 05/15/2023 Do you always have enough fo od for your family? (Household - for ages 0-17 years) Not on file 05/15/2023 Sex and Gender Information Value Date Recorded Sex Assigned at Male 01/02/2023 9:14 AM EDT Gender Identity Male 01/02/2023 9:14 AM EDT Sexual Orientation Straight 01/02/2023 9: 14 AM EDT Job Start Date Occupation Industry Not on file Not on file Not on file documented as of this encounter Last Filed Vital Signs Vital Sign Reading Time Taken Comments Blood Pressure 132/84 01/25/2024 8:51 AM EDT Pulse 95 01/25/2024 8:51 AM EDT Temperature 37.4 C (99.4 F) 01/25/2024 8:51 AM ED T Respiratory Rate 16 01/25/2024 8:51 AM EDT Oxygen Saturation 89% 01/25/2024 8:51 AM EDT Inhaled Oxygen Concentration - - Weight 111.8 kg (246 lb 6.4 oz) 01/25/2024 8:51 AM EDT Height 185.4 cm (6' 1") 01/25/2024 8:51 AM EDT Body Mass Index 32.51 01/25/2024 8:51 AM EDT documented in this encounter Progress Notes * Leah Lee LPN - 01/25/2024 9:40 AM EDT Pre-Administration Time Out Procedure Performed: Yes Patient Identified (Ask Name/Date of ): Yes Does the patient have a fever greater than 101 degrees today? No Patient allergic to latex? No Has the patient ever fainted after receiving an injection? No VFC Stock: No Injection(s) verified: Yes, Injection Name: lidocaine with Ceftriaxone Verified Side and Site: Yes Verified Shot(s) with Parent(s)/Patient: Yes * Marissa Farris PA-C - 01/25/2024 8:53 AM EDT Images from the original note were not included. History of Present Illness Jacobo aYng is a 63 year old male that presents for Acute (Pt states that he has a bug bite onthe R side of his waist band, cold, sweats, fatigue, no appetite, and sob when walking on stairs) Here for eval of a bug bite. This is on his waist line It is very red and sore He has noted cold sweats, fatigue, poor appetite Some cuadra No cp Thinks he was bitten over the weekend Did not find it until Sunday Slept 20 out of 25 hours yesterday No appetite, no nothing. Not sure what got him bnut cuadra snot think it was atick Maybe a spider Was out at camp Physical Exam Vitals: 01/25/24 0851 Temp: 37.4 C (99.4 F) Pulse: 95 Resp: 16 SpO2: 89% BP: 132/84 BMI: 32.52 BP Readings from Last 3 Encounters: 01/25/24 132/84 10/04/23 124/84 05/15/23 122/80 Wt Readings from Last 3 Encounters: 01/25/24 111.8 kg (246 lb 6.4 oz) 10/04/23 112.9 kg (249 lb) 05/15/23 111.4 kg (245 lb 8 oz) BMI Readings from Last 3 Encounters: 01/25/24 32.51 kg/m 10/04/23 32.85 kg/m 05/15/23 32.39 kg/m Ht Readings from Last 3 Encounters: 01/25/24 1.854 m (6' 1") 04/13/23 1.854 m (6' 1") 01/02/23 1.854 m (6' 1") General: alert, healthy, and no distress Head: Normocephalic, No masses, lesions, tenderness or abnormalities Eye Exam: PERRLA, extraocular movements intact, conjunctiva are pink and non- injected, sclera clear Ears: External ears normal, Canals clear, TM's Normal Nose: no mucosal erythema, no mucosal edema, no purulent discharge Oropharynx: no exudate, no erythema, lips, buccal mucosa, and tongue normal, and mucous membranes are moist Neck: supple, no adenopathy, no bruits, thyroid normal size, non-tender, without nodularity Heart: regular rate & rhythm, no murmur, no gallops, S-1 normal, and S-2 normal Lungs: chest symmetric with normal AP diameter, no chest deformities noted, no chest wall tenderness, lungs clear to auscultation Skin: skin color, texture, turgor are normal, R lateral hip he has a small central bite with an oval shaped area of significant erythema, this is approx 8 cm X 4 cm, no fluctuance or induration, warm Assessment and Plan Cellulitis of flank (Primary) - CBC WITH WBC DIFFERENTIAL; Future; Expected date: 01/25/2024 - ERYTHROCYTE SEDIMENTATION RATE (ESR); Future; Expected date: 01/25/2024 - Amoxicillin-Pot Clavulanate 875-125 MG Oral Tablet (Augmentin); Take 1 Tablet by mouth in the morning and 1 Tablet before bedtime. Do all this for 10 days. - cefTRIAXone (Rocephin) inj 1 g - Lidocaine 1 % (PF) inj 1 mL Rev precautions We call if persistent Watch o2 sats at home Wrap-Up Time: I spent a total of 10-19 minutes (exact time 17 mins) on the date of service in preparation, delivery, and documentation of the care provided to Jacobo Yang excluding any time spent in the performance of separately billed services. Marissa Farris PA-C 01/25/2024 9:06 AM documented in this encounter Nursing Notes * Leah Lee LPN - 01/25/2024 8:51 AM EDT Jacobo Yang is a 63 year old male who presents today for Chief Complaint Patient presents with Acute Pt states that he has a bug bite on the R side of his waist band documented in this encounter Plan of Treatment Scheduled Orders Name Type Priority Associated Diagnoses Orde r Schedule CBC WITH WBC DIFFERENTIAL Lab Routine Cellulitis of flank Expected: 01/25/2024 (Approximate), Expires: 01/24/2025 ERYTHROCYTE SEDIMENTATION RATE (ESR) Lab Routine Cellulitis of flank Expected: 01/25/2024 (Approximate), Expires: 01/24/2025 Scheduled Procedures Name Priority Associated Diagnoses Date/Ti me COLONOSCOPY FLEXIBLE PROXIMAL DIAGNOSTIC Recall History of colon polyps ESOPHAGOGASTRODUODENOSCOPY ( EGD), FLEXIBLE, TRANSORAL, DIAGNOSTIC Recall Esophagitis Health Maintenance Due Date Last Done Comments Pneumococcal Vaccine: Pediatrics (0 to 5 Years) and At-Risk Patients (6 to 64 Years) (1 of 2 - PCV) 1966 HIV Screening 1975 Hepatitis C Screening 1978 Cologuard 2005 Fecal Occult Blood Test 2005 Sigmoidoscopy 2005 Zoster Vaccines (1 of 2) 2010 Depression Screening 07/26/2019 07/26/2018 COVID-19 Vaccine (3 - 2022- season) 2023 12/21/2020, 11/16/2020 Influenza Vaccine (FLU shot) (#1) 2024 Diabetes Screening 09/19/2026 09/20/2023, 0 01/10/2023, 12/11/2022, Additional history exists Colonoscopy 04/14/2027 04/14/2022, 03/24, 01/29/2019, Additional history exists Colorectal Cancer Screening 04/14/2027 Lipid Panel 10/14/2028 10/15/2023, 05/24, 12/28/2018, Additional history exists DTaP,Tdap,and Td Vaccines (2 - Td or Tdap) 01/02/2033 01/02/2023, 12/12/2012, 05/23/2001 RETIRED - COLONOSCOPY-EVERY 5 YRS AGES 18-100 Discontinued 04/14/2022, 04/14/2022, 01/29/2019, Additional history exists HPV (Gardasil) Vaccine Aged Out No lo nger eligible based on patient's age to complete this topic Hepatitis B Vaccine Aged Out No longe r eligible based on patient's age to complete this topic MENINGOCOCCAL (MENACTRA/MENVEO) Aged Out No longer eligible based on patient's age to complete this topic documented as of this encounter Medical Devices Not on filedocumented as of this encounter Visit Diagnoses Diagnosis Cellulitis of flank- Primary Cellulitis and abscess of trunk documented in this encounter Administered Medications Inactive Administered Medications - up to 3 most recent administrations Medication Order MAR Action Action Date Dose Rate Site cefTRIAXone (Rocephin) inj 1 g 1 g, Intramuscular, ONCE, On Sun01/25/24 at 0945, For 1 dose Given 01/25/2024 9:21 AM EDT 1 g Dorsogluteal Right Lidocaine 1 % (PF) inj 1 mL 1 mL, Intramuscular, ONCE, On Sun01/25/24 at 0945, For 1 dose Given 01/25/2024 9:22 AM EDT 1 mL Dorsogluteal Right documented in this encounter Care Teams Rag Collector Relationship Specialty Start Date End Date Fernando Barney MD [address] [place] [address] PCP - General Family Medicine 12/26/18 documented as of this encounter
[2024-01-25] MEDS: SODIUM CHLORIDE 0.9% 1,000 ML IV SCH (23:57)
[2024-01-26 06:00] LABS: Hemoglobin 14.4 g/dl (14.0-18.0); Mean Corpuscular Hemoglobin 32.5 pg (25.0-34.0); Mean Corpuscular Hgb Conc 34.3 g/dL (32.0-36.0); Mean Corpuscular Volume 94.8 fL (80.0-100.0); Mean Platelet Volume 10.4 fL (9.4-12.4); Platelet Count 229 K/uL (130-400); RDW Coefficient of Variation 13.3 % (11.5-14.5); RDW Standard Deviation 46.9 fL (36.4-46.3); Red Blood Count 4.43 M/uL (4.70-6.10); White Blood Count 7.06 K/ul (4.8-10.8)
[2024-01-26 06:13] LABS: BUN Creatinine Ratio 25.6 (10-20); Calcium 8.3 mg/dl (8.6-10.3); Creatinine Clr Calc Pharmacy 110.9 ml/min; Est GFR (Non-African American) 90.6 ml/min; Potassium 3.4 mmol/L (3.5-5.1)
[2024-01-26] MEDS: ROSUVASTATIN CALCIUM 10 MG TAB PO SCH (08:03)
[2024-01-26] MEDS: POTASSIUM CHLORIDE CRTAB 20 MEQ TABCR PO STA (08:03)
[2024-01-26] MEDS: ASPIRIN 81 MG ECTAB PO SCH (08:03)
[2024-01-26] MEDS: LOSARTAN POTASSIUM 50 MG TAB PO SCH (08:03)
[2024-01-26] MEDS: amLODIPine BESYLATE 5 MG TAB PO SCH (08:04)
--- NOTE | 2024-01-26 08:54 | Electrocardiogram Report ---
Test Reason : Blood Pressure : / mmHG Vent. Rate : 072 BPM Atrial Rate : 072 BPM P-R Int : 198 ms QRS Dur : 092 ms QT Int : 396 ms P-R-T Axes : 014 002 023 degrees QTc Int : 433 ms Normal sinus rhythm Normal ECG When compared with ECG of 25-JAN-2024 11:16, No significant change Confirmed by Luis Carlos Pichardo ([id number]) on 01/26/2024 8:54:05 AM Referred By: REFERRED SELF Confirmed By:Luis Carlos Pichardo
--- NOTE | 2024-01-26 08:55 | Electrocardiogram Report ---
Test Reason : Blood Pressure : / mmHG Vent. Rate : 089 BPM Atrial Rate : 089 BPM P-R Int : 200 ms QRS Dur : 088 ms QT Int : 344 ms P-R-T Axes : 009 -04 022 degrees QTc Int : 418 ms Normal sinus rhythm Normal ECG When compared with ECG of 26-MAY-2022 10:18, Questionable change in QRS axis T wave inversion no longer evident in Lateral leads Confirmed by Luis Carlos Pichardo ([id number]) on 01/26/2024 8:55:16 AM Referred By: REFERRED SELF Confirmed By:Luis Carlos Pichardo
[2024-01-26] MEDS ORDERED: hydroCHLOROthiazide 25 MG TAB PO SCH (09:00)
--- NOTE | 2024-01-26 11:10 | Hospitalist Progress Note ---
Date of Service January 26, 2024 Assessment & Plan (1) Cellulitis of right abdominal wall: (2) Illness: (3) SOB (shortness of breath): (4) Hypoxemia: (5) HTN (hypertension): (6) Hypertensive heart disease: (7) Former tobacco use: Plan Mr. Yang is a 63 year old gentleman with history HTN, hypertensive heart disease without heart failure, former tobacco use who is admitted for evaluation of right lower abdominal wall cellulitis. Patient states he noted an area on his waistband that has become progressively irritated and marked by fevers, chills, and RAMESH. Patient is not sure what may have bit him as he did not see nor recall feeling any initial bite to the area. Patient reports subjective improvement to area #Cellulitis of right abdominal wall: : Lyme serologies negative, no intracellular inclusions noted Blood cultures NGTD Had dose of 1GM IM Rocephin and 1 tab Augmentin this morning outpatient Continue Unasyn, doxycycline Likely discharge tomorrow if continued improvement noted CBC, BMP in am #RAMESH #Hypoxia #Prior tobacco use History of exertional SOB, evaluated by stress tests previously Former tobacco use 1ppd x 40 years. Quit several months ago. CTA -PE, no edema or other acute cardiopulmonary process reported, mild emphysema+ likely component of underlying COPD, no acute resp symptoms on exam ECHO ordered 2 step prior to dispo #HTN (hypertension): #Hypertensive heart disease: BP stable currently Continue aspirin, amlodipine, losartan, HCTZ, rosuvastatin Follows with cardiology, Dr Do. Dobutamine stress echo 06/20/2022: EF: 55-59% LV wall thickness moderately increased, LV wall motion normal, no significant valvular disease, aortic root and proximal ascending aorta mildly enlarged. Stress echo negative for inducible ischemia DVT ppxlovenox Dispo likely tomorrow Admission and Anticipated Discharge Date Admission Date: January 25, 2024 Subjective NAEO Reports notable improvement in respiratory symptoms and in waistband irritation Denies chest pain, SOB, palpitations Denies further subjective fevers or chills Revealed area on waistband and notes improved tenderness and slight reduction in erythema Physical Exam Constitutional: WD/WN, vitals as above Respiratory: normal respiratory effort, lungs clear to auscultation Cardiovascular: RRR, no murmur, no edema Skin: elongated well demarcated area of violaceous erythema on right hip, small center punctate lesion, no fluctuance, fading of border remains within drawn line from day prior Results & Data Results & Data Vital Signs (Past 12 Hours) Vital Signs Temp Pulse Pulse Resp BP Pulse Ox O2 Del Method 01/26/24 07:39 37.5 C 69 16 107/69 93 Nasal Cannula 01/26/24 07:24 Nasal Cannula 01/26/24 07:08 75 01/26/24 03:02 37 C 67 16 108/70 94 Nasal Cannula 01/25/24 23:28 36.8 C 65 18 97/60 L 92 Nasal Cannula O2 Flow Rate 01/26/24 07:39 2 01/26/24 07:24 2.5 01/26/24 07:08 01/26/24 03:02 2.5 01/25/24 23:28 2.5 Laboratory Results Short CBC 01/25/24 01/26/24 Range/Units 11:15 05:37 WBC 8.23 7.06 (4.8-10.8) K/ul Hgb 15.2 14.4 (14.0-18.0) g/dl Hct 43.9 42.0 (42.0-52.0) % Plt Count 284 229 (130-400) K/uL BMP 01/25/24 01/26/24 11:15 05:37 Sodium 135 L 136 Potassium 3.5 3.4 L Chloride 99 102 Carbon Dioxide 29 27 BUN 18 23 Creatinine 0.97 0.90 Glucose 95 109 H Calcium 9.0 8.3 L Liver Function 01/25/24 Range/Units 11:15 Total Bilirubin 1.2 H (0.2-1.0) mg/dl AST 24 (13-39) U/L ALT 27 (7-52) U/L Alkaline Phosphatase 74 (34-104) U/L Albumin 4.2 (3.4-5.0) gm/dl Medications Administered Home Medications Medication Instructions Recorded Confirmed Last Taken amlodipine 2.5 mg tablet 2.5 mg PO DAILY 01/25/24 01/25/24 01/25/24 aspirin 81 mg tablet,delayed 81 mg PO DAILY 01/25/24 01/25/24 01/25/24 release hydrochlorothiazide 25 mg tablet 25 mg PO DAILY 01/25/24 01/25/24 01/25/24 losartan 50 mg tablet 50 mg PO DAILY 01/25/24 01/25/24 01/25/24 rosuvastatin 10 mg tablet 10 mg PO DAILY 01/25/24 01/25/24 01/25/24 Active Medications Generic Name Dose Route Start Last Admin Trade Name Antoni PRN Reason Stop Dose Admin Amlodipine Besylate 2.5 mg 01/26/24 09:00 01/26/24 08:04 Amlodipine Besylate 5 Mg Tab PO 02/25/24 08:59 2.5 mg DAILY NAHID Administration Aspirin 81 mg 01/26/24 09:00 01/26/24 08:03 Aspirin 81 Mg Ectab PO 02/25/24 08:59 81 mg DAILY NAHID Administration Enoxaparin Sodium 40 mg 01/25/24 18:45 01/25/24 19:14 Enoxaparin Inj 40 Mg/0.4 Ml Syr SQ 02/24/24 18:44 40 mg Q24H NAHID Administration Ampicillin Sodium/Sulbactam 100 mls @ 100 mls/hr 01/25/24 18:30 01/26/24 06:36 Sodium 3,000 mg/ Sodium IV 02/01/24 18:29 Infused Chloride Q6H NAHID Infusion Doxycycline Hyclate 100 mg/ 100 mls @ 50 mls/hr 01/25/24 21:00 01/26/24 10:09 Dextrose IV 02/01/24 20:59 Infused Q12H NAHID Infusion Losartan Potassium 50 mg 01/26/24 09:00 01/26/24 08:03 Losartan Potassium 50 Mg Tab PO 02/25/24 08:59 50 mg DAILY NAHID Administration Rosuvastatin Calcium 10 mg 01/26/24 09:00 01/26/24 08:03 Rosuvastatin Calcium 10 Mg Tab PO 02/25/24 08:59 10 mg DAILY NAHID Administration
[2024-01-27 07:10] LABS: Hematocrit (blood only) 41.4 % (42.0-52.0); Hemoglobin 13.9 g/dl (14.0-18.0); Mean Corpuscular Hemoglobin 32.3 pg (25.0-34.0); Mean Corpuscular Hgb Conc 33.6 g/dL (32.0-36.0); Mean Corpuscular Volume 96.3 fL (80.0-100.0); Mean Platelet Volume 10.5 fL (9.4-12.4); Platelet Count 248 K/uL (130-400); RDW Coefficient of Variation 13.2 % (11.5-14.5); RDW Standard Deviation 47.7 fL (36.4-46.3)
[2024-01-27 07:30] LABS: BUN Creatinine Ratio 28.6 (10-20); Calcium 8.5 mg/dl (8.6-10.3); Creatinine Clr Calc Pharmacy 129.9 ml/min; Est GFR (African American) 111.9 ml/min; Est GFR (Non-African American) 96.6 ml/min; Magnesium 2.3 mg/dl (1.7-2.4); Phosphorus 3.4 mg/dl (2.5-4.9); Potassium 3.8 mmol/L (3.5-5.1)
--- NOTE | 2024-01-27 12:50 | Discharge Summary ---
Discharge Summary Date of Service January 27, 2024 Principal Dx & Hospital Course #1 = Principal Diagnosis (1) Cellulitis of right abdominal wall: (2) Illness: (3) SOB (shortness of breath): (4) Hypoxemia: (5) HTN (hypertension): (6) Hypertensive heart disease: (7) Former tobacco use: Plan Mr. Yang is a 63 year old gentleman with history HTN, hypertensive heart disease without heart failure, former tobacco use who is admitted for evaluation of right lower abdominal wall cellulitis. Patient states he noted an area on his waistband that has become progressively irritated and marked by fevers, chills, and RAMESH. Patient is not sure what may have bit him as he did not see nor recall feeling any initial bite to the area. On day of discharge, patient reports are on side is nearly resolved. Denies any sob, , or other acute concerns. Respiratory completed 2 step and no O2 requirements noted. #Cellulitis of right abdominal wall: : Lyme serologies negative, no intracellular inclusions noted Blood cultures NGTD Had dose of 1GM IM Rocephin and 1 tab Augmentin this morning outpatient Continue Unasyn, doxycycline Discharge with doxycycline #RAMESH *resolved #Hypoxia #Prior tobacco use #Mild emphysema History of exertional SOB, evaluated by stress tests previously Former tobacco use 1ppd x 40 years. Quit several months ago. CTA -PE, no edema or other acute cardiopulmonary process reported, mild emphysema+ likely component of underlying COPD, no acute resp symptoms on exam ECHO: stable EF 55-60%, G1DD, some LVH 2 step prior to dispo Discuss with PCP need for PFTs given changes on CT #HTN (hypertension): #Hypertensive heart disease: BP stable currently Continue aspirin, amlodipine, losartan, HCTZ, rosuvastatin Follows with cardiology, Dr Do. Dobutamine stress echo 06/20/2022: EF: 55-59% LV wall thickness moderately increased, LV wall motion normal, no significant valvular disease, aortic root and proximal ascending aorta mildly enlarged. Stress echo negative for inducible ischemia ECHO this admission stable as above Notes For Next Care Provider Medication Changes From Visit Doxycyline 100mg BID Admission HPI Per Admitting Provider Patient is 63-year-old male with PMH HTN, hypertensive heart disease without heart failure, former tobacco use presented to ER with c/o fatigue, sweats, chills, red area to right abdomen, and dyspnea on exertion x 3 days. Reports 3 days ago noticed reddened area to right lower abdomen along his waistline which is tender to touch. He thought maybe he had a insect bite but is unsure. He denies any known tick bites. He reports he works outside and is outside on a daily basis. 3 days ago also started with sweats, chills, fatigue, generalized [place]. He reports he slept 20 hours yesterday. Past couple days has also noted dyspnea on exertion. Denies any chest pain. He has not been taking his temperature at home. Denies any other noted rashes, denies noted drainage from area. Denies history of MRSA. States he has had a slight intermittent cough the past couple of days. Seen in outpatient clinic today for concern of "bug bite" to waistline with associated sweats, fatigue, decreased appetite and shortness of breath. He was given a IM injection of 1 g Rocephin and sent with prescription for Augmentin per clinic note from 01/25/24. It is reported was noted to be hypoxic and patient was to watch O2 sats at home. Patient presented to ER later today as noted O2 sats in the 80's and he has continued fatigue. Denies N/V/D/C, dizziness, syncope, vision changes, neck pain, CP, orthopnea, palpitations, hemoptysis, sore throat, choking, otalgia, rhinorrhea, abdominal pain, paresthesias, extremity edema, rashes, urinary symptoms. Denies ill contacts. Admission Exam Per Admitting Provider General: no distress, WDWN Head: normocephalic, atraumatic Eyes: conjunctiva non-injected, anicteric ENT: normal inspection external ears, nose, mucous membranes moist Neck: supple, trachea midline Lungs: clear, no respiratory distress, no wheezing/rhonchi/rales CV: RRR, no murmur, no pretibial edema Abd: normal BS, soft, non-tender Ext: no cyanosis, no calf tenderness Neuro: A&O x 3, no focal deficits noted, normal affect Skin: warm, dry, +oval area of erythema with central area with slight purple coloration without fluctuance and no drainage to right lower abdomen, area warm and tender to palpation. No other rashes noted Discharge Exam Constitutional WD/WN, vitals as above Respiratory normal respiratory effort, lungs clear to auscultation Cardiovascular RRR, no murmur, no edema Gastrointestinal (Abdomen) normal bowel sounds, soft, nontender, no hepatosplenomegaly Musculoskeletal no cyanosis or clubbing, extremities motor strength 5/5 Skin area of previously violaceous discoloration now with minimal erythema on right hip Updated Medication List Medication Instructions Recorded Confirmed Type amlodipine 2.5 mg tablet 2.5 mg PO DAILY 01/25/24 01/25/24 History aspirin 81 mg tablet,delayed 81 mg PO DAILY 01/25/24 01/25/24 History release hydrochlorothiazide 25 mg tablet 25 mg PO DAILY 01/25/24 01/25/24 History losartan 50 mg tablet 50 mg PO DAILY 01/25/24 01/25/24 History rosuvastatin 10 mg tablet 10 mg PO DAILY 01/25/24 01/25/24 History doxycycline hyclate 100 mg capsule 100 mg PO BID 7 days #14 caps 01/27/24 Rx Hospital Stay Data Consultations 01/25/24 13:54 ED Decision to Admit Stat Diagnostic Imagining Performed 01/25/24 12:33 CT angio chest PE protocol Stat Pending Results Patient Have Any Pending Studies at Discharge: No Discharge Instructions Given to Patient (Per Discharging Provider) You were admitted for ill-like symptoms and found to have an insect bite. Your labs were negative for lyme disease. Imaging of your lungs revealed mild emphysema, but no pneumonia or signs of inflammation. The area of concern on your right hip is much improved. Please continue doxycycline 100mg two times a day until the course is completed. Your next dose is this evening. Please discuss breathing and lung function tests with your provider given ongoing concerns of shortness of breath. Total Time Total Time Spent Total Time Spent (In Minutes): 35
== END 2024-01-27 10:19 | disposition home or self-care (01) | DRG 603 ==
LOC: ED 10:34 → SUATTDRO 14:17 → 2N 14:17
DX: Z79.899 Other long term (current) drug therapy; R09.02 Hypoxemia; Z11.52 Encounter for screening for COVID-19; J43.9 Emphysema, unspecified; L03.311 Cellulitis of abdominal wall; Z79.82 Long term (current) use of aspirin; Z87.891 Personal history of nicotine dependence; I11.9 Hypertensive heart disease without heart failure

== ENCOUNTER 2025-04-30 17:04 | Inpatient (IN) ==
[2025-04-30 19:05] LABS: Hematocrit (blood only) 46.2 % (42.0-52.0); Hemoglobin 15.7 g/dl (14.0-18.0); Immature Granulocytes # (auto) 0.03 K/uL (0.01-0.20); Immature Granulocytes % (auto) 0.3 %; Mean Corpuscular Hemoglobin 32.6 pg (25.0-34.0); Mean Corpuscular Volume 95.9 fL (80.0-100.0); Platelet Count 320 K/uL (130-400); RDW Standard Deviation 47.7 fL (36.4-46.3); Red Blood Count 4.82 M/uL (4.70-6.10); White Blood Count 9.72 K/ul (4.8-10.8)
[2025-04-30 19:23] LABS: Alanine Aminotransferase 22.0 U/L (7-52); Albumin Globulin Ratio 1.4 (0.9-2); Albumin Level 4.4 gm/dl (3.4-5.0); Alkaline Phosphatase 87.0 U/L (34-104); Anion Gap 7.0 (3-11); Bilirubin,Total 1.3 mg/dl (0.2-1.0); Blood Urea Nitrogen 22.0 mg/dl (6-23); Calcium 9.7 mg/dl (8.6-10.3); Carbon Dioxide 30.0 mmol/L (21-32); Chloride 101.0 mmol/L (98-107); Creatinine Clr Calc Pharmacy 119.5 ml/min; Globulin 3.1 gm/dl (2.5-4.0); Glucose 102.0 mg/dl (70-99(Fasting)); Potassium 3.5 mmol/L (3.5-5.1); Sodium 138.0 mmol/L (136-145); Total Protein 7.5 gm/dl (6.0-8.3)
[2025-04-30 19:49] LABS: Chlamydia pneumoniae PCR Not Detected (NotDetected); Coronavirus 229E PCR Not Detected (NotDetected); Coronavirus CoV-2 (COVID19)PCR Not Detected (NotDetected); Coronavirus HKU1 PCR Not Detected (NotDetected); Coronavirus NL63 PCR Not Detected (NotDetected); Coronavirus OC43PCR Not Detected (NotDetected); Human Metapneumovirus PCR Not Detected (NotDetected); Parainfluenza Virus 1 PCR Not Detected (NotDetected); Parainfluenza Virus 2 PCR Not Detected (NotDetected); Parainfluenza Virus 3 PCR Not Detected (NotDetected); Parainfluenza Virus 4 PCR Not Detected (NotDetected); Respiratory Syncytial VirusPCR Not Detected (NotDetected); Rhinovirus/Enterovirus PCR Not Detected (NotDetected)
--- NOTE | 2025-04-30 20:06 | Emergency Department Note ---
Impression & Plan Bronchitis, Tobacco use, Hypoxia ED Provider Note Provider: Rashaad Perez MD CHIEF COMPLAINT: Cough, shortness of breath, wheezing, low-grade fever, dizziness HISTORY OF PRESENT ILLNESS: Patient is a 64-year-old gentleman past medical history of hypertension and hyperlipidemia presenting here today reporting over the last several days since beginning week has been having some respiratory symptoms of shortness of breath and wheezing. Low-grade fevers reported and some dizziness at times. Some chest pain with coughing. Evidently at home was resting on the couch and home oxygen level was 84%. Came here for evaluation. No travel or sick contacts. No chest pain currently. No leg swelling. No significant sore throat or ear pain but some sinus congestion and sore throat. Has a bit of hoarse voice. Mildly productive cough at times. Not using any significant cough or cold medicine. PAST MEDICAL HISTORY: As noted above MEDICATIONS: Reviewed no medications, no inhalers or nebulizers at home SOCIAL HISTORY: , longtime smoker PHYSICAL EXAM: GENERAL: alert and oriented in no acute distress on stretcher Head: normocephalic and atraumatic EYES: No injection, discharge or icterus. PERRL, EOMI. NECK: Trachea midline. Supple. ENT: Mucous membranes pink and moist. Pharynx without exudate or uvular deviation and some very slight erythema. LUNGS: Airway patent. No retractions. Breath sounds with some mild expiratory wheeze. HEART: Regular rate and rhythm. No chest wall tenderness ABDOMEN: Soft and non-tender, without guarding or rebound. SKIN: Acyanotic, warm, dry, without rashes EXTREMITIES: Without swelling, tenderness or deformity NEUROLOGICAL: No focal deficits. No aphasia. No facial droop or slurred speech. Ambulatory. EK beats per minute. Normal sinus rhythm. A bit of baseline artifact but no acute ST segment elevation or depression with QTc 415 CONTINUOUS CARDIAC MONITORING: was ordered and showed a heart rate of 60 through 70s through bpm in normal sinus rhythm Patient's laboratory studies and imaging reviewed. Differential includes Reactive airway disease, pneumonia, pneumothorax, COPD, CHF, infections, cardiac ischemia, pulmonary embolism, musculoskeletal, gastrointestinal, as well as other pathologies. IMPRESSION/MEDICAL DECISION MAKING: From triage labs EKG and respiratory panel ordered. Negative respiratory viral panel here. Troponin normal. No significant lecture light abnormality signs of renal dysfunction. No significant leukocytosis or anemia on blood work. Do not believe this represents PE. Respiratory viral panel negative. Given his long history of smoking question some reactive airway disease/chronic bronchitis occurring. Chest x-ray without findings of pneumonia per my review and radiology report. No findings of heart failure. Troponin is normal. Given his illness and comorbidities given a dose of doxycycline as well as IV Solu-Medrol and a DuoNeb here. Oxygen level hovering around 90% here. Reevaluated after nebulizer and treatments. Believe bronchitis with his underlying smoking comorbidities discussed with him options of outpatient care versus observation here overnight. Patient with hypoxia in the high 80s after nebulizer. Desaturate quite easily. Put on 2 to 3 L of nasal cannula oxygen. Discussed with him and feel that further observation be reasonable. Hospitalist team was contacted. DIAGNOSIS: Bronchitis, tobacco use, hypoxia DISPOSITION: Hospitalist will evaluate Patient was agreeable with this plan. Past Med/Surg History Problem List (Updated 04/30/25 @ 21:46 by Rashaad Perez M.D.) Hypoxia (Acute) Tobacco use (Acute) Bronchitis (Acute) Hypertensive heart disease HTN (hypertension) Former tobacco use Illness Cellulitis of right abdominal wall Bug bite (Acute) Hypoxemia (Acute) Encounter for pre-operative examination Adenomatous polyps Tear of lateral meniscus of right knee Tobacco use disorder, continuous Medical History Hypercholesteremia Per records Abnormal EKG Preop EKG showing T wave abnormality (consider lateral schemia) --> referred to Dr. Do for stress test and stress test WNL 06/20/22. Surgical History History of esophagogastroduodenoscopy (EGD) History of tonsillectomy History of colonoscopy Family History Grandmother (Maternal) Family hx of colon cancer Mother Family hx of colon cancer Brother Family hx of colon cancer Social History (Updated 01/25/24 @ 15:47 by Swathi Sellers PA-C) Smoking Status: Current every day smoker Tobacco Type: Cigarettes Cigarettes Per Day: 1 ppd; Second Hand Exposure: No; Do You Dip or Chew Tobacco: No; Hx Alcohol Use: No Hx Substance Use: No Preferred Language: Sinhala Communication Ability: Effective Head Sampler Required: No Beliefs That Will Affect Care: None Current Living Situation: Spouse Feels Safe at Home: Yes Assistive Devices: Glasses Allergies Allergies Allergy/AdvReac Type Severity Reaction Status Date / Time bee venom protein (honey bee) Allergy Severe EXTREME Verified 04/30/25 19:54 SWELLING Home Meds Home Medications Medication Instructions Recorded Confirmed amlodipine 2.5 mg tablet 2.5 mg PO DAILY 01/25/24 04/30/25 aspirin 81 mg tablet,delayed 81 mg PO DAILY 01/25/24 04/30/25 release hydrochlorothiazide 25 mg tablet 25 mg PO DAILY 01/25/24 04/30/25 losartan 50 mg tablet 50 mg PO DAILY 01/25/24 04/30/25 rosuvastatin 10 mg tablet 10 mg PO DAILY 01/25/24 04/30/25 Results & Data (ED) Vital Signs Vital Signs - 24 hr 04/30/25 17:15 04/30/25 19:25 04/30/25 19:28 Temperature 36.6 C Temperature Source Temporal Artery Scan Pulse Rate 70 72 63 Pulse Rate [Left Finger] Pulse Rhythm Regular Pulse Rhythm [Left Finger] Respiratory Rate 18 16 Respiratory Effort / Characteristics Respiratory Depth Respiratory Pattern Blood Pressure 158/90 H Blood Pressure [Left Arm] Blood Pressure Mean 112 Blood Pressure Mean [Left Arm] Pulse Oximetry 91 94 Oxygen Delivery Method Room Air Room Air Oxygen Flow Rate Sepsis Recent Fever Within 48 Hours No Sepsis New/Unexplained Change in Mental Status No Sepsis Action Taken by Nursing No Action Required 04/30/25 19:29 04/30/25 19:33 04/30/25 19:33 Temperature Temperature Source Pulse Rate Pulse Rate [Left Finger] 66 Pulse Rhythm Pulse Rhythm [Left Finger] Regular Respiratory Rate 16 Respiratory Effort / Characteristics Non-Labored Respiratory Depth Normal Normal Respiratory Pattern Regular Blood Pressure Blood Pressure [Left Arm] 153/94 H Blood Pressure Mean Blood Pressure Mean [Left Arm] 113 Pulse Oximetry 94 94 Oxygen Delivery Method Room Air Room Air Room Air Oxygen Flow Rate Sepsis Recent Fever Within 48 Hours Sepsis New/Unexplained Change in Mental Status Sepsis Action Taken by Nursing 04/30/25 21:00 04/30/25 22:00 04/30/25 23:00 Temperature Temperature Source Pulse Rate Pulse Rate [Left Finger] 73 69 74 Pulse Rhythm Pulse Rhythm [Left Finger] Regular Regular Regular Respiratory Rate 16 16 16 Respiratory Effort / Characteristics Non-Labored Respiratory Depth Normal Normal Normal Respiratory Pattern Blood Pressure Blood Pressure [Left Arm] 142/80 H 159/83 H Blood Pressure Mean Blood Pressure Mean [Left Arm] 100 108 Pulse Oximetry 95 92 90 Oxygen Delivery Method Nebulizer Room Air Room Air Oxygen Flow Rate 6 Sepsis Recent Fever Within 48 Hours Sepsis New/Unexplained Change in Mental Status Sepsis Action Taken by Nursing Laboratory Data 04/30/25 18:49 04/30/25 18:49 Lab Results 04/30/25 Range/Units 18:49 WBC 9.72 (4.8-10.8) K/ul RBC 4.82 (4.70-6.10) M/uL Hgb 15.7 (14.0-18.0) g/dl Hct 46.2 (42.0-52.0) % MCV 95.9 (80.0-100.0) fL MCH 32.6 (25.0-34.0) pg MCHC 34.0 (32.0-36.0) g/dL RDW Std Deviation 47.7 H (36.4-46.3) fL RDW Coeff of Dave 13.5 (11.5-14.5) % Plt Count 320 (130-400) K/uL MPV 10.8 (9.4-12.4) fL Immature Gran % (Auto) 0.3 % Neut % (Auto) 53.5 % Lymph % (Auto) 32.2 % [place] % (Auto) 6.6 % Eos % (Auto) 6.8 % Baso % (Auto) 0.6 % Neut # (Auto) 5.20 (1.40-6.50) K/uL Lymph # (Auto) 3.13 (1.20-3.40) K/uL [place]er # (Auto) 0.64 H (0.11-0.59) K/uL Eos # (Auto) 0.66 H (0.00-0.50) K/uL Baso # (Auto) 0.06 (0.00-0.20) K/uL Immature Gran # (Auto) 0.03 (0.01-0.20) K/uL Sodium 138 (136-145) mmol/L Potassium 3.5 (3.5-5.1) mmol/L Chloride 101 (98-107) mmol/L Carbon Dioxide 30 (21-32) mmol/L Anion Gap 7 (3-11) BUN 22 (6-23) mg/dl Creatinine 0.83 (0.6-1.4) mg/dl Est Cr Clr Drug Dosing 119.5 ml/min eGFR 97.73 BUN/Creatinine Ratio 26.5 H (10-20) Glucose 102 H (70-99(Fasting)) mg/dl Calcium 9.7 (8.6-10.3) mg/dl Total Bilirubin 1.3 H (0.2-1.0) mg/dl AST 18 (13-39) U/L ALT 22 (7-52) U/L Alkaline Phosphatase 87 (34-104) U/L Troponin I High Sens 3.8 (0-20) pg/ml Total Protein 7.5 (6.0-8.3) gm/dl Albumin 4.4 (3.4-5.0) gm/dl Globulin 3.1 (2.5-4.0) gm/dl Albumin/Globulin Ratio 1.4 (0.9-2) Adenovirus (PCR) Not Detected (NotDetected) B. pertussis DNA (PCR) Not Detected (NotDetected) B.parapertussis DNA PCR Not Detected (NotDetected) C. pneumoniae DNA (PCR) Not Detected (NotDetected) Coronavirus OC43 (PCR) Not Detected (NotDetected) Coronavirus HKU1 (PCR) Not Detected (NotDetected) Coronavirus 229E (PCR) Not Detected (NotDetected) SARS-CoV-2 (PCR) Not Detected (NotDetected) Coronavirus NL63 (PCR) Not Detected (NotDetected) Human Metapneumovir PCR Not Detected (NotDetected) Influenza Type A (PCR) Not Detected (NotDetected) Influenza Type B (PCR) Not Detected (NotDetected) M. pneumoniae (PCR) Not Detected (NotDetected) Parainfluenza 1 (PCR) Not Detected (NotDetected) Parainfluenza 2 (PCR) Not Detected (NotDetected) Parainfluenza 3 (PCR) Not Detected (NotDetected) Parainfluenza 4 (PCR) Not Detected (NotDetected) RSV (PCR) Not Detected (NotDetected) Entero/Rhino (PCR) Not Detected (NotDetected) Administered Medications Discontinued Medications Albuterol (Albut/Ipratrop 3mg/0.5mg Neb 3 Ml Vial) 12 ml NEB ONE ONE; Protocol Stop: 04/30/25 20:29 Last Admin: 04/30/25 20:45 Dose: 12 ml Documented By: DELMI Doxycycline Hyclate (Doxycycline Hyclate 100 Mg Cap) 100 mg PO NOW STA Stop: 04/30/25 20:38 Last Admin: 04/30/25 20:44 Dose: 100 mg Documented By: DELMI Ketorolac Tromethamine (Ketorolac Tromethamine 15 Mg/Ml Vial) 10 mg IV NOW ONE Stop: 04/30/25 20:29 Last Admin: 04/30/25 20:44 Dose: 10 mg Documented By: DELMI Methylprednisolone (Methylprednisolone 125 Mg/2 Ml Vial) 60 mg IV NOW STA Stop: 04/30/25 20:29 Last Admin: 04/30/25 20:45 Dose: 60 mg Documented By: DELMI Imaging Data Radiologist's Impression: Chest X-Ray 04/30/25 17:20 EXAM: X-ray chest one-view portable CLINICAL HISTORY: Dyspnea PRIORS: CT 01/25/2024 TECHNIQUE: Frontal view chest FINDINGS: Overlying soft tissues obscure visualization. The chest is well-expanded. No airspace consolidation, effusion or congestive changes. Heart size is normal. No pneumothorax. Trachea is patent. Osseous structures demonstrate no acute abnormality. No radiopaque foreign body. IMPRESSION: No plain film evidence of an acute cardiopulmonary process. If clinically appropriate, chest CT could be considered. Electronically signed by Mariah Miranda 04-30-2025 8:13 PM Discharge Plan Visit Data Chief Complaint: Respiratory Problems Stated Complaint: RESPIRATORY ED Provider: Rashaad Perez Discharge Problem: Bronchitis, Tobacco use, Hypoxia Patient Disposition: Being Evaluated by Hospitalist Condition: Fair Forms Stand Alone Forms: My [facility] Prescriptions Prescriptions: No Action losartan 50 mg tablet 50 mg PO DAILY amlodipine 2.5 mg tablet 2.5 mg PO DAILY aspirin 81 mg Tablet,Delayed Release (Dr/Ec) 81 mg PO DAILY hydrochlorothiazide 25 mg tablet 25 mg PO DAILY rosuvastatin 10 mg tablet 10 mg PO DAILY Referrals Referrals: Fernando Barney MD [Primary Care Provider] -
--- NOTE | 2025-04-30 20:14 | XRay Report ---
EXAM: X-ray chest one-view portable CLINICAL HISTORY: Dyspnea PRIORS: CT 01/25/2024 TECHNIQUE: Frontal view chest FINDINGS: Overlying soft tissues obscure visualization. The chest is well-expanded. No airspace consolidation, effusion or congestive changes. Heart size is normal. No pneumothorax. Trachea is patent. Osseous structures demonstrate no acute abnormality. No radiopaque foreign body. IMPRESSION: No plain film evidence of an acute cardiopulmonary process. If clinically appropriate, chest CT could be considered. Electronically signed by Mariah Miranda 04-30-2025 8:13 PM
[2025-04-30] MEDS: DOXYCYCLINE HYCLATE 100 MG CAP PO STA (20:44)
[2025-04-30] MEDS: KETOROLAC TROMETHAMINE 15 MG/ML VIAL IV ONE (20:44)
[2025-04-30] MEDS: ALBUT/IPRATROP 3MG/0.5MG NEB 3 ML VIAL NEB ONE (20:45)
--- NOTE | 2025-05-01 00:10 | History & Physical Report ---
Date of Service April 30, 2025 Assessment & Plan (1) COPD exacerbation: Plan: 64-year-old male with past medical history significant for hypercholesterolemia, ongoing tobacco use, hypertension presents with shortness of breath and cough. Since last Sunday patient was feeling short of breath and has been coughing a lot and bringing whitish-yellow phlegm. Today also had a fever of 101 F. Was wheezing. Denies any chest pain. No nausea or vomiting. No headache. No runny nose or sore throat. Appetite is okay. Normal bowel and bladder movements. Currently resting comfortably and hemodynamically stable. COPD exacerbation Presented with shortness of breath and cough and also fever BioFire negative Chest x-ray okay Will follow CT chest Empiric Rocephin and doxycycline Nebs [id number] and as needed. IV Solu-Medrol 3 times daily Close monitor Ongoing tobacco abuse Counseling Hypertension Continue amlodipine, losartan and hydrochlorothiazide Monitor Hyperlipidemia On statin DVT prophylaxis Lovenox Disposition Admit/telemetry Full code. History of Present Illness Chief Complaint: Shortness of breath and cough Primary Care Provider: Fernando Barney MD 64-year-old male with past medical history significant for hypercholesterolemia, ongoing tobacco use, hypertension presents with shortness of breath and cough. Since last Sunday patient was feeling short of breath and has been coughing a lot and bringing whitish-yellow phlegm. Today also had a fever of 101 F. Was wheezing. Denies any chest pain. No nausea or vomiting. No headache. No runny nose or sore throat. Appetite is okay. Normal bowel and bladder movements. Currently resting comfortably and hemodynamically stable. Past medical history. As mentioned above. Past surgical history. Colonoscopy with biopsy. Colonoscopy with lesion removal. Cystoscopy with stent insertion. EGD with biopsy. Tonsillectomy and adenoidectomy. Social history. . Smokes 1 pack a day for last 25 years. Denies alcohol use. No drug use. Family history. Father had anticardiolipin syndrome. Heart disorder. Brother had cancer. Maternal grandmother had cancer. Allergies Allergy/AdvReac Type Severity Reaction Status Date / Time bee venom protein (honey bee) Allergy Severe EXTREME Verified 04/30/25 19:54 SWELLING Home Medications Medication Instructions Recorded Confirmed Type amlodipine 2.5 mg tablet 2.5 mg PO DAILY 01/25/24 04/30/25 History aspirin 81 mg tablet,delayed 81 mg PO DAILY 01/25/24 04/30/25 History release hydrochlorothiazide 25 mg tablet 25 mg PO DAILY 01/25/24 04/30/25 History losartan 50 mg tablet 50 mg PO DAILY 01/25/24 04/30/25 History rosuvastatin 10 mg tablet 10 mg PO DAILY 01/25/24 04/30/25 History Past Med/Surg History Problem List (Updated 05/01/25 @ 00:18 by José Luis Hayes MD) COPD exacerbation Hypoxia (Acute) Tobacco use (Acute) Bronchitis (Acute) Hypertensive heart disease HTN (hypertension) Former tobacco use Illness Cellulitis of right abdominal wall Bug bite (Acute) Hypoxemia (Acute) Encounter for pre-operative examination Adenomatous polyps Tear of lateral meniscus of right knee Tobacco use disorder, continuous Medical History Hypercholesteremia Per records Abnormal EKG Preop EKG showing T wave abnormality (consider lateral schemia) --> referred to Dr. Do for stress test and stress test WNL 06/20/22. Surgical History History of esophagogastroduodenoscopy (EGD) History of tonsillectomy History of colonoscopy Family History Grandmother (Maternal) Family hx of colon cancer Mother Family hx of colon cancer Brother Family hx of colon cancer Social History (Updated 01/25/24 @ 15:47 by Swathi Sellers PA-C) Smoking Status: Current every day smoker Tobacco Type: Cigarettes Cigarettes Per Day: 1 pack per day; Second Hand Exposure: No; Do You Dip or Chew Tobacco: No; Hx Alcohol Use: Yes Alcohol type: beer Hx Substance Use: No Preferred Language: [place]i Communication Ability: Effective Credit Collection Associate Required: No Beliefs That Will Affect Care: None Current Living Situation: Spouse Other Information That Helps Us Care for You: No Feels Safe at Home: Yes Safety Concerns: Feels Safe At This Time Assistive Devices: Glasses and Oxygen - Continuous Review of Systems Review of Systems: All systems reviewed & are unremarkable except as noted in HPI & below Physical Exam Physical Exam: General- Not in distress Head- atraumatic Eyes- PERRL. ENT- oropharynx clear Neck- supple, no JVD. Lungs-b/l diminished breath sounds no wheezing or crackles Heart- regular rhythm; no murmur, no gallop. Abdomen- normal bowel sounds, soft, nontender, no distension Extremities- no pretibial edema, no erythema seen Neuro- alert, oriented PERRL, no facial palsy; no dysarthria; moves extremities Results & Data Results & Data Vital Signs (Past 12 Hours) Vital Signs Temp Pulse Pulse Resp BP BP Pulse Ox 04/30/25 23:00 74 16 159/83 H 90 04/30/25 22:00 69 16 142/80 H 92 04/30/25 21:00 73 16 95 04/30/25 19:33 94 04/30/25 19:33 04/30/25 19:29 66 16 153/94 H 94 04/30/25 19:28 63 16 94 04/30/25 19:25 72 04/30/25 17:15 36.6 C 70 18 158/90 H 91 O2 Del Method O2 Flow Rate 04/30/25 23:00 Room Air 04/30/25 22:00 Room Air 04/30/25 21:00 Nebulizer 6 04/30/25 19:33 Room Air 04/30/25 19:33 Room Air 04/30/25 19:29 Room Air 04/30/25 19:28 Room Air 04/30/25 19:25 04/30/25 17:15 Room Air Diagnostic Findings Laboratory Results WBC 9.72 K/ul (4.8-10.8) 04/30/25 18:49 RBC 4.82 M/uL (4.70-6.10) 04/30/25 18:49 Hgb 15.7 g/dl (14.0-18.0) 04/30/25 18:49 Hct 46.2 % (42.0-52.0) 04/30/25 18:49 MCV 95.9 fL (80.0-100.0) 04/30/25 18:49 MCH 32.6 pg (25.0-34.0) 04/30/25 18:49 MCHC 34.0 g/dL (32.0-36.0) 04/30/25 18:49 RDW Std Deviation 47.7 fL (36.4-46.3) H 04/30/25 18:49 RDW Coeff of Dave 13.5 % (11.5-14.5) 04/30/25 18:49 Plt Count 320 K/uL (130-400) 04/30/25 18:49 MPV 10.8 fL (9.4-12.4) 04/30/25 18:49 Immature Gran % (Auto) 0.3 % 04/30/25 18:49 Neut % (Auto) 53.5 % 04/30/25 18:49 Lymph % (Auto) 32.2 % 04/30/25 18:49 [place] % (Auto) 6.6 % 04/30/25 18:49 Eos % (Auto) 6.8 % 04/30/25 18:49 Baso % (Auto) 0.6 % 04/30/25 18:49 Neut # (Auto) 5.20 K/uL (1.40-6.50) 04/30/25 18:49 Lymph # (Auto) 3.13 K/uL (1.20-3.40) 04/30/25 18:49 [place] # (Auto) 0.64 K/uL (0.11-0.59) H 04/30/25 18:49 Eos # (Auto) 0.66 K/uL (0.00-0.50) H 04/30/25 18:49 Baso # (Auto) 0.06 K/uL (0.00-0.20) 04/30/25 18:49 Immature Gran # (Auto) 0.03 K/uL (0.01-0.20) 04/30/25 18:49 Sodium 138 mmol/L (136-145) 04/30/25 18:49 Potassium 3.5 mmol/L (3.5-5.1) 04/30/25 18:49 Chloride 101 mmol/L (98-107) 04/30/25 18:49 Carbon Dioxide 30 mmol/L (21-32) 04/30/25 18:49 Anion Gap 7 (3-11) 04/30/25 18:49 BUN 22 mg/dl (6-23) 04/30/25 18:49 Creatinine 0.83 mg/dl (0.6-1.4) 04/30/25 18:49 Est Cr Clr Drug Dosing 119.5 ml/min 04/30/25 18:49 eGFR 97.73 04/30/25 18:49 BUN/Creatinine Ratio 26.5 (10-20) H 04/30/25 18:49 Glucose 102 mg/dl (70-99(Fasting)) H 04/30/25 18:49 Calcium 9.7 mg/dl (8.6-10.3) 04/30/25 18:49 Total Bilirubin 1.3 mg/dl (0.2-1.0) H 04/30/25 18:49 AST 18 U/L (13-39) 04/30/25 18:49 ALT 22 U/L (7-52) 04/30/25 18:49 Alkaline Phosphatase 87 U/L (34-104) 04/30/25 18:49 Troponin I High Sens 3.8 pg/ml (0-20) 04/30/25 18:49 Total Protein 7.5 gm/dl (6.0-8.3) 04/30/25 18:49 Albumin 4.4 gm/dl (3.4-5.0) 04/30/25 18:49 Globulin 3.1 gm/dl (2.5-4.0) 04/30/25 18:49 Albumin/Globulin Ratio 1.4 (0.9-2) 04/30/25 18:49 Adenovirus (PCR) Not Detected (NotDetected) 04/30/25 18:49 B. pertussis DNA (PCR) Not Detected (NotDetected) 04/30/25 18:49 B.parapertussis DNA PCR Not Detected (NotDetected) 04/30/25 18:49 C. pneumoniae DNA (PCR) Not Detected (NotDetected) 04/30/25 18:49 Coronavirus OC43 (PCR) Not Detected (NotDetected) 04/30/25 18:49 Coronavirus HKU1 (PCR) Not Detected (NotDetected) 04/30/25 18:49 Coronavirus 229E (PCR) Not Detected (NotDetected) 04/30/25 18:49 SARS-CoV-2 (PCR) Not Detected (NotDetected) 04/30/25 18:49 Coronavirus NL63 (PCR) Not Detected (NotDetected) 04/30/25 18:49 Human Metapneumovir PCR Not Detected (NotDetected) 04/30/25 18:49 Influenza Type A (PCR) Not Detected (NotDetected) 04/30/25 18:49 Influenza Type B (PCR) Not Detected (NotDetected) 04/30/25 18:49 M. pneumoniae (PCR) Not Detected (NotDetected) 04/30/25 18:49 Parainfluenza 1 (PCR) Not Detected (NotDetected) 04/30/25 18:49 Parainfluenza 2 (PCR) Not Detected (NotDetected) 04/30/25 18:49 Parainfluenza 3 (PCR) Not Detected (NotDetected) 04/30/25 18:49 Parainfluenza 4 (PCR) Not Detected (NotDetected) 04/30/25 18:49 RSV (PCR) Not Detected (NotDetected) 04/30/25 18:49 Entero/Rhino (PCR) Not Detected (NotDetected) 04/30/25 18:49 Impressions Chest X-Ray 04/30/25 17:20 EXAM: X-ray chest one-view portable CLINICAL HISTORY: Dyspnea PRIORS: CT 01/25/2024 TECHNIQUE: Frontal view chest FINDINGS: Overlying soft tissues obscure visualization. The chest is well-expanded. No airspace consolidation, effusion or congestive changes. Heart size is normal. No pneumothorax. Trachea is patent. Osseous structures demonstrate no acute abnormality. No radiopaque foreign body. IMPRESSION: No plain film evidence of an acute cardiopulmonary process. If clinically appropriate, chest CT could be considered. Electronically signed by Mariah Miranda 04-30-2025 8:13 PM ECG Additional Comments: ECG. Normal sinus rhythm rate of 69. No specific ST changes in inferior leads. QTc 415. Code Status & VTE Plan VTE Prophylaxis Plan VTE Prophylaxis will be ordered: Yes
[2025-05-01] MEDS ORDERED: ACETAMINOPHEN 325 MG TAB PO PRN (00:48)
[2025-05-01] MEDS ORDERED: ALBUT/IPRATROP 3MG/0.5MG NEB 3 ML VIAL NEB PRN (00:48)
[2025-05-01 00:53] LABS: Appearance Urine Clear (Clear); Bacteria Urine Automated None Seen (None Seen); Epithelial Cell Urine Auto 0-2 /hpf (0-2); Glucose Urine UA Negative (Negative); RBC Urine Automated 0-2 /hpf (0-2); WBC Urine Automated 0-5 /hpf (0-5)
--- NOTE | 2025-05-01 01:05 | CT Scan Report ---
EXAM: CT chest diagnostic wo con CLINICAL HISTORY: sob , cough, fever. TECHNIQUE: Contiguous axial images were obtained from the neck base through the upper abdomen without contrast. In addition, sagittal and coronal reconstructions were performed to potentially increase the sensitivity for the detection of disease. CT scan was performed according to ALARA (as low as reasonably achievable). COMPARISON: 11:41:33 [employer] . FINDINGS: Multiple subpleural subsegmental atelectases with adjacent ground-glass opacities are noted in the left lower lobe. A few subpleural areas of atelectasis are also noted in the posterior basal segment of the left lower lobe. The remainder of both lungs is clear. The central airways are patent. There are no pleural effusions. No pneumothorax is seen. Evaluation of the mediastinum and kassandra is limited due to the lack of intravenous contrast. No axillary or mediastinal adenopathy is identified. The thyroid is unremarkable. The heart, aorta, and pulmonary arteries are of normal size and configuration. Atherosclerotic changes are noted in the arch of the aorta. No pericardial effusion is identified. Imaged portions of the upper abdomen are unremarkable. No aggressive-appearing osseous lesions are identified. Bridging thoracic osteophytes are seen in thoracic vertebrae. IMPRESSION: Subpleural subsegmental atelectases with adjacent ground-glass opacities are noted in the left lower lobe. Stable. A few subpleural areas of atelectasis are also noted in the posterior basal segment of the left lower lobe. Stable. Findings are suggestive of sequelae to previous infection, likely; clinical correlation is suggested. Electronically signed by Ramón De La Garza 05-01-2025 01:05 AM
[2025-05-01] MEDS: cefTRIAXone SODIUM 2,000 MG/50 ML BAG IV SCH (01:48)
[2025-05-01 05:57] LABS: Hematocrit (blood only) 42.8 % (42.0-52.0); Hemoglobin 14.5 g/dl (14.0-18.0); Mean Corpuscular Hemoglobin 32.5 pg (25.0-34.0); Mean Corpuscular Volume 96.0 fL (80.0-100.0); Platelet Count 299 K/uL (130-400); RDW Standard Deviation 47.4 fL (36.4-46.3); Red Blood Count 4.46 M/uL (4.70-6.10); White Blood Count 8.44 K/ul (4.8-10.8)
[2025-05-01 06:14] LABS: Anion Gap 6.0 (3-11); Blood Urea Nitrogen 28.0 mg/dl (6-23); Calcium 9.6 mg/dl (8.6-10.3); Carbon Dioxide 30.0 mmol/L (21-32); Chloride 101.0 mmol/L (98-107); Creatinine Clr Calc Pharmacy 113.4 ml/min; Glucose 181.0 mg/dl (70-99(Fasting)); Magnesium 2.2 mg/dl (1.7-2.4); Potassium 3.4 mmol/L (3.5-5.1); Sodium 137.0 mmol/L (136-145)
[2025-05-01 06:21] LABS: Immature Granulocytes # (auto) 0.02 K/uL (0.01-0.20); Immature Granulocytes % (auto) 0.2 %; RBC Morphology Unremarkable
[2025-05-01] MEDS: hydroCHLOROthiazide 25 MG TAB PO SCH (07:28)
[2025-05-01] MEDS: ENOXAPARIN INJ 40 MG/0.4 ML SYR SQ SCH (07:28)
[2025-05-01] MEDS: ROSUVASTATIN CALCIUM 10 MG TAB PO SCH (07:29)
[2025-05-01] MEDS: LOSARTAN POTASSIUM 50 MG TAB PO SCH (07:29)
[2025-05-01] MEDS: ASPIRIN 81 MG ECTAB PO SCH (07:29)
[2025-05-01] MEDS: DOXYCYCLINE HYCLATE 100 MG CAP PO SCH (07:29)
[2025-05-01] MEDS: ALBUT/IPRATROP 3MG/0.5MG NEB 3 ML VIAL NEB SCH (07:44)
--- NOTE | 2025-05-01 09:03 | Hospitalist Progress Note ---
Date of Service May 01, 2025 Assessment & Plan (1) COPD exacerbation: Plan: 64-year-old male with past medical history significant for hypercholesterolemia, ongoing tobacco use, hypertension presents with shortness of breath and cough. Since last Sunday patient was feeling short of breath and has been coughing a lot and bringing whitish-yellow phlegm. Today also had a fever of 101 F. Was wheezing. Denies any chest pain. No nausea or vomiting. No headache. No runny nose or sore throat. Appetite is okay. Normal bowel and bladder movements. Currently resting comfortably and hemodynamically stable. Acute hypoxic resp. failure COPD exacerbation Presented with shortness of breath and cough and also fever BioFire negative Chest x-ray - negat. CT chest - Subpleural subsegmental atelectases with adjacent ground-glass opacities are noted in the left lower lobe. Stable. A few subpleural areas of atelectasis are also noted in the posterior basal segment of the left lower lobe. Stable. Findings are suggestive of sequelae to previous infection, likely; clinical correlation is suggested. Empiric Rocephin and doxycycline Nebs [id number] and as needed. IV Solu-Medrol 3 times daily Close monitor Ongoing tobacco abuse Counseling Hypertension Continue amlodipine, losartan and hydrochlorothiazide Monitor Hyperlipidemia On statin DVT prophylaxis - Lovenox Disposition - Admit/telemetry Full code Admission and Anticipated Discharge Date Admission Date: April 30, 2025 Subjective Pt seen in follow up of acute hypoxic resp. failure, COPD exacerbation, poss. pna Currently sitting up in be in NAD, reports feeling improved since admission/ yesterday Cont. to use suppl. O2 Currently no fevers, chills, had fever yesterday at home No chest pain, + cough, no shortness of breath No abd. pain, n/v Review of Systems Review of Systems: All systems reviewed & are unremarkable except as noted in Subjective Physical Exam Physical Exam: General- WD/WN M Not in distress, on suppl. O2 Head- atraumatic Eyes- PERRL. Neck- supple Lungs- b/l diminished breath sounds no wheezing or crackles Heart- regular rhythm; no murmur Abdomen- normal bowel sounds, soft, nontender, no distension Extremities- no pretibial edema, no erythema seen Neuro- alert, oriented PERRL, no facial palsy; no dysarthria; moves extremities Results & Data Results & Data Vital Signs (Past 12 Hours) Vital Signs Temp Pulse Pulse Resp BP BP Pulse Ox 05/01/25 08:19 36.7 C 81 16 127/82 93 05/01/25 07:57 05/01/25 07:45 90 16 90 05/01/25 07:16 76 05/01/25 02:18 36.7 C 87 16 133/72 92 05/01/25 00:48 05/01/25 00:45 05/01/25 00:45 36.8 C 79 18 160/88 H 92 05/01/25 00:36 77 05/01/25 00:26 68 16 125/70 91 05/01/25 00:25 68 16 125/70 91 05/01/25 00:00 65 16 125/70 94 04/30/25 23:00 74 16 159/83 H 90 04/30/25 22:00 69 16 142/80 H 92 04/30/25 21:00 73 16 95 Pulse Ox O2 Del Method O2 Del Method O2 Flow Rate O2 Flow Rate 05/01/25 08:19 Room Air 05/01/25 07:57 Nasal Cannula 2 05/01/25 07:45 Nasal Cannula 2 05/01/25 07:16 05/01/25 02:18 Nasal Cannula 2 05/01/25 00:48 92 Nasal Cannula 2 05/01/25 00:45 Nasal Cannula 2 05/01/25 00:45 Nasal Cannula 2 05/01/25 00:36 05/01/25 00:26 Nasal Cannula 2 05/01/25 00:25 Nasal Cannula 2 05/01/25 00:00 Nasal Cannula 2 04/30/25 23:00 Room Air 04/30/25 22:00 Room Air 04/30/25 21:00 Nebulizer 6 Laboratory Results 05/01/25 05/01/25 04/30/25 Range/Units 05:22 00:13 18:49 WBC 8.44 9.72 (4.8-10.8) K/ul RBC 4.46 L 4.82 (4.70-6.10) M/uL Hgb 14.5 15.7 (14.0-18.0) g/dl Hct 42.8 46.2 (42.0-52.0) % MCV 96.0 95.9 (80.0-100.0) fL MCH 32.5 32.6 (25.0-34.0) pg MCHC 33.9 34.0 (32.0-36.0) g/dL RDW Std Deviation 47.4 H 47.7 H (36.4-46.3) fL RDW Coeff of Dave 13.3 13.5 (11.5-14.5) % Plt Count 299 320 (130-400) K/uL MPV 11.1 10.8 (9.4-12.4) fL Immature Gran % (Auto) 0.2 0.3 % Neut % (Auto) 92.1 53.5 % Lymph % (Auto) 6.8 32.2 % [place] % (Auto) 0.7 6.6 % Eos % (Auto) 0.1 6.8 % Baso % (Auto) 0.1 0.6 % Neut # (Auto) 7.77 H 5.20 (1.40-6.50) K/uL Lymph # (Auto) 0.57 L 3.13 (1.20-3.40) K/uL [place] # (Auto) 0.06 L 0.64 H (0.11-0.59) K/uL Eos # (Auto) 0.01 0.66 H (0.00-0.50) K/uL Baso # (Auto) 0.01 0.06 (0.00-0.20) K/uL Immature Gran # (Auto) 0.02 0.03 (0.01-0.20) K/uL RBC Morphology Unremarkable Sodium 137 138 (136-145) mmol/L Potassium 3.4 L 3.5 (3.5-5.1) mmol/L Chloride 101 101 (98-107) mmol/L Carbon Dioxide 30 30 (21-32) mmol/L Anion Gap 6 7 (3-11) BUN 28 H 22 (6-23) mg/dl Creatinine 0.87 0.83 (0.6-1.4) mg/dl Est Cr Clr Drug Dosing 113.4 119.5 ml/min eGFR 96.35 97.73 BUN/Creatinine Ratio 32.2 H 26.5 H (10-20) Glucose 181 H 102 H (70-99(Fasting)) mg/dl Calcium 9.6 9.7 (8.6-10.3) mg/dl Magnesium 2.2 (1.7-2.4) mg/dl Total Bilirubin 1.3 H (0.2-1.0) mg/dl AST 18 (13-39) U/L ALT 22 (7-52) U/L Alkaline Phosphatase 87 (34-104) U/L Troponin I High Sens 3.8 (0-20) pg/ml Total Protein 7.5 (6.0-8.3) gm/dl Albumin 4.4 (3.4-5.0) gm/dl Globulin 3.1 (2.5-4.0) gm/dl Albumin/Globulin Ratio 1.4 (0.9-2) Urine Color Dark Yellow Urine Appearance Clear (Clear) Urine pH 5.5 (4.5-7.5) Ur Specific [place] 1.026 (1.000-1.030) Urine Protein Negative (Negative) Urine Glucose (UA) Negative (Negative) Urine Ketones Trace H (Negative) Urine Blood Negative (Negative) Urine Nitrite Negative (Negative) Urine Bilirubin Negative (Negative) Urine Urobilinogen Negative (Negative) Ur Leukocyte Esterase Trace H (Negative) Urine WBC (Auto) 0-5 (0-5) /hpf Urine RBC (Auto) 0-2 (0-2) /hpf U Hyaline Cast (Auto) 3-5 H (0-2) /lpf U Epithel Cells (Auto) 0-2 (0-2) /hpf Urine Bacteria (Auto) None Seen (None Seen) Urine Mucus Present A (None Prsent) Urine Comment Adenovirus (PCR) Not Detected (NotDetected) B. pertussis DNA (PCR) Not Detected (NotDetected) B.parapertussis DNA PCR Not Detected (NotDetected) C. pneumoniae DNA (PCR) Not Detected (NotDetected) Coronavirus OC43 (PCR) Not Detected (NotDetected) Coronavirus HKU1 (PCR) Not Detected (NotDetected) Coronavirus 229E (PCR) Not Detected (NotDetected) SARS-CoV-2 (PCR) Not Detected (NotDetected) Coronavirus NL63 (PCR) Not Detected (NotDetected) Hepatitis C Ab Screen Pending Human Metapneumovir PCR Not Detected (NotDetected) Influenza Type A (PCR) Not Detected (NotDetected) Influenza Type B (PCR) Not Detected (NotDetected) M. pneumoniae (PCR) Not Detected (NotDetected) Parainfluenza 1 (PCR) Not Detected (NotDetected) Parainfluenza 2 (PCR) Not Detected (NotDetected) Parainfluenza 3 (PCR) Not Detected (NotDetected) Parainfluenza 4 (PCR) Not Detected (NotDetected) RSV (PCR) Not Detected (NotDetected) Entero/Rhino (PCR) Not Detected (NotDetected) Medications Administered Current Inpatient Medications Acetaminophen (Acetaminophen 325 Mg Tab) 650 mg PO Q4H PRN PRN Reason: Pain or Fever Stop: 05/31/25 00:47 Albuterol (Albut/Ipratrop 3mg/0.5mg Neb 3 Ml Vial) 3 ml NEB QIDR NAHID; Protocol Stop: 05/31/25 06:59 Last Admin: 05/01/25 07:44 Dose: 3 ml Albuterol (Albut/Ipratrop 3mg/0.5mg Neb 3 Ml Vial) 3 ml NEB Q4H PRN; Protocol PRN Reason: Shortness Of Breath Or Wheezing Stop: 05/31/25 00:47 Amlodipine Besylate (Amlodipine Besylate 5 Mg Tab) 2.5 mg PO DAILY [facility] Stop: 05/31/25 08:59 Last Admin: 05/01/25 07:29 Dose: 2.5 mg Aspirin (Aspirin 81 Mg Ectab) 81 mg PO DAILY [facility] Stop: 05/31/25 08:59 Last Admin: 05/01/25 07:29 Dose: 81 mg Doxycycline Hyclate (Doxycycline Hyclate 100 Mg Cap) 100 mg PO BID [facility] Stop: 05/06/25 08:59 Last Admin: 05/01/25 07:29 Dose: 100 mg Enoxaparin Sodium (Enoxaparin Inj 40 Mg/0.4 Ml Syr) 40 mg SQ Q24H [facility] Stop: 05/31/25 07:59 Last Admin: 05/01/25 07:28 Dose: 40 mg Hydrochlorothiazide (Hydrochlorothiazide 25 Mg Tab) 25 mg PO DAILY [facility] Stop: 05/31/25 08:59 Last Admin: 05/01/25 07:28 Dose: 25 mg Ceftriaxone Sodium (Rocephin) 2,000 mg in 50 mls @ 100 mls/hr IV Q24H NAHID Stop: 05/06/25 00:47 Last Infusion: 05/01/25 02:25 Dose: Infused Methylprednisolone 40 mg/ (Syringe) 0.64 mls @ 1.5 mls/min IV Q8H NAHID Stop: 05/31/25 08:59 Last Admin: 05/01/25 07:28 Dose: 1.5 mls/min Losartan Potassium (Losartan Potassium 50 Mg Tab) 50 mg PO DAILY [facility] Stop: 05/31/25 08:59 Last Admin: 05/01/25 07:29 Dose: 50 mg Polyethylene Glycol (Polyethylene (Miralax) 17 Gm Pack) 17 gm PO DAILY PRN PRN Reason: Constipation Stop: 05/31/25 00:47 Potassium Chloride (Potassium Chloride Crtab 20 Meq Tabcr) 40 meq PO NOW STA Stop: 05/01/25 09:00 Rosuvastatin Calcium (Rosuvastatin Calcium 10 Mg Tab) 10 mg PO DAILY [facility] Stop: 05/31/25 08:59 Last Admin: 05/01/25 07:29 Dose: 10 mg
[2025-05-01] MEDS: POTASSIUM CHLORIDE CRTAB 20 MEQ TABCR PO STA (09:16)
--- NOTE | 2025-05-01 13:23 | Electrocardiogram Report ---
Test Reason : Blood Pressure : */* mmHG Vent. Rate : 69 BPM Atrial Rate : 69 BPM P-R Int : 206 ms QRS Dur : 72 ms QT Int : 388 ms P-R-T Axes : 25 26 35 degrees QTcB Int : 415 ms Normal sinus rhythm Poor R wave progression, consider anterior IN vs. lead placement vs. LVH Abnormal ECG When compared with ECG of 26-Jan-2024 05:46, Non-specific change in ST segment in Inferior leads Confirmed by Michelet Stewart ([id number]) on 05/01/2025 1:23:15 PM Referred By: REFERRED SELF Confirmed By: Michelet Stewart
[2025-05-01] MEDS: guaiFENesin 600 MG TABCR PO SCH (17:12)
[2025-05-02 07:12] LABS: Hematocrit (blood only) 42.8 % (42.0-52.0); Hemoglobin 14.6 g/dl (14.0-18.0); Mean Corpuscular Hemoglobin 32.5 pg (25.0-34.0); Mean Corpuscular Volume 95.3 fL (80.0-100.0); Platelet Count 323 K/uL (130-400); RDW Standard Deviation 47.9 fL (36.4-46.3); Red Blood Count 4.49 M/uL (4.70-6.10); White Blood Count 22.12 K/ul (4.8-10.8)
[2025-05-02 07:36] LABS: Anion Gap 6.0 (3-11); Blood Urea Nitrogen 28.0 mg/dl (6-23); Calcium 9.3 mg/dl (8.6-10.3); Carbon Dioxide 29.0 mmol/L (21-32); Chloride 104.0 mmol/L (98-107); Creatinine Clr Calc Pharmacy 139.7 ml/min; Glucose 142.0 mg/dl (70-99(Fasting)); Magnesium 2.2 mg/dl (1.7-2.4); Potassium 4.0 mmol/L (3.5-5.1); Sodium 139.0 mmol/L (136-145)
--- NOTE | 2025-05-02 11:04 | Hospitalist Progress Note ---
Date of Service May 02, 2025 Assessment & Plan (1) COPD exacerbation: Plan: 64-year-old male with past medical history significant for hypercholesterolemia, ongoing tobacco use, hypertension presents with shortness of breath and cough. Since last Sunday patient was feeling short of breath and has been coughing a lot and bringing whitish-yellow phlegm. Today also had a fever of 101 F. Was wheezing. Denies any chest pain. No nausea or vomiting. No headache. No runny nose or sore throat. Appetite is okay. Normal bowel and bladder movements. Currently resting comfortably and hemodynamically stable. Acute hypoxic resp. failure COPD exacerbation, poss. PNA Presented with shortness of breath and cough and also fever BioFire negative Chest x-ray - negat. CT chest - Subpleural subsegmental atelectases with adjacent ground-glass opacities are noted in the left lower lobe. Stable. A few subpleural areas of atelectasis are also noted in the posterior basal segment of the left lower lo be. Stable. Findings are suggestive of sequelae to previous infection, likely; clinical correlation is suggested. Empiric Rocephin and doxycycline Nebs [id number] and as needed. IV Solu-Medrol Close monitor Ongoing tobacco abuse Counseling Hypertension Continue amlodipine, losartan and hydrochlorothiazide Monitor Hyperlipidemia On statin DVT prophylaxis - Lovenox Disposition - Admit/telemetry Full code Admission and Anticipated Discharge Date Admission Date: April 30, 2025 Subjective Pt seen in follow up of acute hypoxic resp. failure, COPD exacerbation, poss. pna Currently sitting up in be in NAD, reports feeling improved since admission but still requiring supplemental oxygen - just checked O2 sats again- pt on 4L 92% Cont. to use suppl. O2 Currently no fevers, chills, had fever at home No chest pain, + cough, no shortness of breath No abd. pain, n/v Review of Systems Review of Systems: All systems reviewed & are unremarkable except as noted in Subjective Physical Exam Physical Exam: General- WD/WN M Not in distress, on suppl. O2 Head- atraumatic Eyes- PERRL. Neck- supple Lungs- b/l diminished breath sounds no wheezing or crackles Heart- regular rhythm; no murmur Abdomen- normal bowel sounds, soft, nontender, no distension Extremities- no pretibial edema, no erythema seen Neuro- alert, oriented PERRL, no facial palsy; no dysarthria; moves extremities Results & Data Results & Data Vital Signs (Past 12 Hours) Vital Signs Temp Pulse Pulse Resp BP Pulse Ox O2 Del Method 05/02/25 07:42 36.3 C L 78 16 151/73 H 90 Room Air 05/02/25 07:41 89 18 90 Nasal Cannula 05/02/25 07:15 73 05/02/25 04:03 36.9 C 74 16 124/64 94 Nasal Cannula 05/01/25 23:19 36.8 C 88 16 126/69 95 Nasal Cannula O2 Flow Rate 05/02/25 07:42 05/02/25 07:41 4 05/02/25 07:15 05/02/25 04:03 4 05/01/25 23:19 4 Laboratory Results 05/02/25 Range/Units 06:39 WBC 22.12 H (4.8-10.8) K/ul RBC 4.49 L (4.70-6.10) M/uL Hgb 14.6 (14.0-18.0) g/dl Hct 42.8 (42.0-52.0) % MCV 95.3 (80.0-100.0) fL MCH 32.5 (25.0-34.0) pg MCHC 34.1 (32.0-36.0) g/dL RDW Std Deviation 47.9 H (36.4-46.3) fL RDW Coeff of Dave 13.6 (11.5-14.5) % Plt Count 323 (130-400) K/uL MPV 11.0 (9.4-12.4) fL Sodium 139 (136-145) mmol/L Potassium 4.0 (3.5-5.1) mmol/L Chloride 104 (98-107) mmol/L Carbon Dioxide 29 (21-32) mmol/L Anion Gap 6 (3-11) BUN 28 H (6-23) mg/dl Creatinine 0.71 (0.6-1.4) mg/dl Est Cr Clr Drug Dosing 139.7 ml/min eGFR 102.45 BUN/Creatinine Ratio 39.4 H (10-20) Glucose 142 H (70-99(Fasting)) mg/dl Calcium 9.3 (8.6-10.3) mg/dl Phosphorus 3.6 (2.5-4.9) mg/dl Magnesium 2.2 (1.7-2.4) mg/dl Medications Administered Current Inpatient Medications Acetaminophen (Acetaminophen 325 Mg Tab) 650 mg PO Q4H PRN PRN Reason: Pain or Fever Stop: 05/31/25 00:47 Albuterol (Albut/Ipratrop 3mg/0.5mg Neb 3 Ml Vial) 3 ml NEB QIDR NAHID; Protocol Stop: 05/31/25 06:59 Last Admin: 05/02/25 11:01 Dose: 3 ml Albuterol (Albut/Ipratrop 3mg/0.5mg Neb 3 Ml Vial) 3 ml NEB Q4H PRN; Protocol PRN Reason: Shortness Of Breath Or Wheezing Stop: 05/31/25 00:47 Amlodipine Besylate (Amlodipine Besylate 5 Mg Tab) 2.5 mg PO DAILY [facility] Stop: 05/31/25 08:59 Last Admin: 05/02/25 07:59 Dose: 2.5 mg Aspirin (Aspirin 81 Mg Ectab) 81 mg PO DAILY [facility] Stop: 05/31/25 08:59 Last Admin: 05/02/25 08:00 Dose: 81 mg Doxycycline Hyclate (Doxycycline Hyclate 100 Mg Cap) 100 mg PO BID [facility] Stop: 05/06/25 08:59 Last Admin: 05/02/25 07:59 Dose: 100 mg Enoxaparin Sodium (Enoxaparin Inj 40 Mg/0.4 Ml Syr) 40 mg SQ Q24H [facility] Stop: 05/31/25 07:59 Last Admin: 05/02/25 07:59 Dose: 40 mg Guaifenesin (Guaifenesin 600 Mg Tabcr) 600 mg PO Q12 [facility] Stop: 05/31/25 16:39 Last Admin: 05/02/25 08:00 Dose: 600 mg Hydrochlorothiazide (Hydrochlorothiazide 25 Mg Tab) 25 mg PO DAILY [facility] Stop: 05/31/25 08:59 Last Admin: 05/02/25 08:00 Dose: 25 mg Ceftriaxone Sodium (Rocephin) 2,000 mg in 50 mls @ 100 mls/hr IV Q24H [facility] Stop: 05/06/25 00:47 Last Infusion: 05/02/25 02:19 Dose: Infused Methylprednisolone 40 mg/ (Syringe) 0.64 mls @ 1.5 mls/min IV Q8H [facility] Stop: 05/31/25 08:59 Last Admin: 05/02/25 08:01 Dose: 1.5 mls/min Losartan Potassium (Losartan Potassium 50 Mg Tab) 50 mg PO DAILY [facility] Stop: 05/31/25 08:59 Last Admin: 05/02/25 08:00 Dose: 50 mg Miscellaneous (Remove Nicoderm Patch) 1 each N/A DAILY@0859 [facility] Stop: 06/02/25 08:58 Nicotine (Nicotine 7 Mg/24 Hr Tdsy) 1 patch TD QAM [facility] Stop: 06/01/25 11:14 Polyethylene Glycol (Polyethylene (Miralax) 17 Gm Pack) 17 gm PO DAILY PRN PRN Reason: Constipation Stop: 05/31/25 00:47 Rosuvastatin Calcium (Rosuvastatin Calcium 10 Mg Tab) 10 mg PO DAILY [facility] Stop: 05/31/25 08:59 Last Admin: 05/02/25 08:00 Dose: 10 mg
[2025-05-02] MEDS: NICOTINE 7 MG/24 HR TDSY TD SCH (11:35)
[2025-05-03 06:55] LABS: Hematocrit (blood only) 42.9 % (42.0-52.0); Hemoglobin 14.1 g/dl (14.0-18.0); Mean Corpuscular Hemoglobin 32.2 pg (25.0-34.0); Mean Corpuscular Volume 97.9 fL (80.0-100.0); Platelet Count 298 K/uL (130-400); RDW Standard Deviation 50.2 fL (36.4-46.3); Red Blood Count 4.38 M/uL (4.70-6.10); White Blood Count 16.35 K/ul (4.8-10.8)
[2025-05-03 07:21] LABS: Anion Gap 8.0 (3-11); Blood Urea Nitrogen 30.0 mg/dl (6-23); Calcium 9.1 mg/dl (8.6-10.3); Carbon Dioxide 30.0 mmol/L (21-32); Chloride 103.0 mmol/L (98-107); Creatinine Clr Calc Pharmacy 141.8 ml/min; Glucose 102.0 mg/dl (70-99(Fasting)); Magnesium 2.3 mg/dl (1.7-2.4); Potassium 3.7 mmol/L (3.5-5.1); Sodium 141.0 mmol/L (136-145)
[2025-05-03] MEDS: POLYETHYLENE (MIRALAX) 17 GM PACK PO PRN (07:57)
[2025-05-03] MEDS: REMOVE NICODERM PATCH SCH (08:00)
[2025-05-03] MEDS: POTASSIUM CHLORIDE CRTAB 20 MEQ TABCR PO STA (09:23)
--- NOTE | 2025-05-03 15:39 | Hospitalist Progress Note ---
Date of Service May 03, 2025 Assessment & Plan (1) COPD exacerbation: Plan: 64-year-old male with past medical history significant for hypercholesterolemia, ongoing tobacco use, hypertension presents with shortness of breath and cough. Since last Sunday patient was feeling short of breath and has been coughing a lot and bringing whitish-yellow phlegm. Today also had a fever of 101 F. Was wheezing. Denies any chest pain. No nausea or vomiting. No headache. No runny nose or sore throat. Appetite is okay. Normal bowel and bladder movements. Currently resting comfortably and hemodynamically stable. Acute hypoxic resp. failure COPD exacerbation, poss. PNA Presented with shortness of breath and cough and also fever BioFire negative Chest x-ray - negat. CT chest - Subpleural subsegmental atelectases with adjacent ground-glass opacities are noted in the left lower lobe. Stable. A few subpleural areas of atelectasis are also noted in the posterior basal segment of the left lower lo be. Stable. Findings are suggestive of sequelae to previous infection, likely; clinical correlation is suggested. Empiric Rocephin and doxycycline Nebs [id number] and as needed. IV Solu-Medrol Close monitor Ongoing tobacco abuse Counseling Hypertension Continue amlodipine, losartan and hydrochlorothiazide Monitor Hyperlipidemia On statin DVT prophylaxis - Lovenox Disposition - Admit/telemetry Full code Admission and Anticipated Discharge Date Admission Date: April 30, 2025 Subjective Pt seen in follow up of acute hypoxic resp. failure, COPD exacerbation, poss. pna Currently sitting up in bed in NAD, reports feeling improved since admission. As of past 2 hrs pt on RA, but was on 4L yesterday. Pt seen right after his breathing treatment. Currently no fevers, chills, had fever at home No chest pain, + cough, no shortness of breath No abd. pain, n/v Review of Systems Review of Systems: All systems reviewed & are unremarkable except as noted in Subjective Physical Exam Physical Exam: General- WD/WN M Not in distress Head- atraumatic Eyes- PERRL. Neck- supple Lungs- b/l diminished breath sounds no wheezing or crackles Heart- regular rhythm; no murmur Abdomen- normal bowel sounds, soft, nontender, no distension Extremities- no pretibial edema, no erythema seen Neuro- alert, oriented PERRL, no facial palsy; no dysarthria; moves extremities Results & Data Results & Data Vital Signs (Past 12 Hours) Vital Signs Temp Pulse Pulse Resp BP Pulse Ox O2 Del Method 05/03/25 14:53 72 18 90 Room Air 05/03/25 11:13 Nasal Cannula 05/03/25 10:56 36.8 C 76 16 125/46 L 94 Nasal Cannula 05/03/25 10:56 74 18 90 Nasal Cannula 05/03/25 07:41 36.8 C 67 16 117/71 95 Room Air 05/03/25 07:16 67 05/03/25 06:24 80 16 90 Nasal Cannula 05/03/25 03:56 37.1 C 73 18 134/76 95 Nasal Cannula O2 Flow Rate 05/03/25 14:53 05/03/25 11:13 1 05/03/25 10:56 1 05/03/25 10:56 1 05/03/25 07:41 05/03/25 07:16 05/03/25 06:24 2 05/03/25 03:56 2 Laboratory Results 05/03/25 Range/Units 05:42 WBC 16.35 H (4.8-10.8) K/ul RBC 4.38 L (4.70-6.10) M/uL Hgb 14.1 (14.0-18.0) g/dl Hct 42.9 (42.0-52.0) % MCV 97.9 (80.0-100.0) fL MCH 32.2 (25.0-34.0) pg MCHC 32.9 (32.0-36.0) g/dL RDW Std Deviation 50.2 H (36.4-46.3) fL RDW Coeff of Dave 13.8 (11.5-14.5) % Plt Count 298 (130-400) K/uL MPV 11.7 (9.4-12.4) fL Sodium 141 (136-145) mmol/L Potassium 3.7 (3.5-5.1) mmol/L Chloride 103 (98-107) mmol/L Carbon Dioxide 30 (21-32) mmol/L Anion Gap 8 (3-11) BUN 30 H (6-23) mg/dl Creatinine 0.70 (0.6-1.4) mg/dl Est Cr Clr Drug Dosing 141.8 ml/min eGFR 102.89 BUN/Creatinine Ratio 42.9 H (10-20) Glucose 102 H (70-99(Fasting)) mg/dl Calcium 9.1 (8.6-10.3) mg/dl Phosphorus 3.6 (2.5-4.9) mg/dl Magnesium 2.3 (1.7-2.4) mg/dl Medications Administered Current Inpatient Medications Acetaminophen (Acetaminophen 325 Mg Tab) 650 mg PO Q4H PRN PRN Reason: Pain or Fever Stop: 05/31/25 00:47 Albuterol (Albut/Ipratrop 3mg/0.5mg Neb 3 Ml Vial) 3 ml NEB QIDR NAHID; Protocol Stop: 05/31/25 06:59 Last Admin: 05/03/25 14:52 Dose: 3 ml Albuterol (Albut/Ipratrop 3mg/0.5mg Neb 3 Ml Vial) 3 ml NEB Q4H PRN; Protocol PRN Reason: Shortness Of Breath Or Wheezing Stop: 05/31/25 00:47 Amlodipine Besylate (Amlodipine Besylate 5 Mg Tab) 2.5 mg PO DAILY [facility] Stop: 05/31/25 08:59 Last Admin: 05/03/25 07:59 Dose: 2.5 mg Aspirin (Aspirin 81 Mg Ectab) 81 mg PO DAILY [facility] Stop: 05/31/25 08:59 Last Admin: 05/03/25 07:58 Dose: 81 mg Doxycycline Hyclate (Doxycycline Hyclate 100 Mg Cap) 100 mg PO BID [facility] Stop: 05/06/25 08:59 Last Admin: 05/03/25 07:59 Dose: 100 mg Enoxaparin Sodium (Enoxaparin Inj 40 Mg/0.4 Ml Syr) 40 mg SQ Q24H [facility] Stop: 05/31/25 07:59 Last Admin: 05/03/25 07:58 Dose: 40 mg Guaifenesin (Guaifenesin 600 Mg Tabcr) 600 mg PO Q12 [facility] Stop: 05/31/25 16:39 Last Admin: 05/03/25 07:59 Dose: 600 mg Hydrochlorothiazide (Hydrochlorothiazide 25 Mg Tab) 25 mg PO DAILY [facility] Stop: 05/31/25 08:59 Last Admin: 05/03/25 07:58 Dose: 25 mg Ceftriaxone Sodium (Rocephin) 2,000 mg in 50 mls @ 100 mls/hr IV Q24H [facility] Stop: 05/06/25 00:47 Last Infusion: 05/03/25 01:26 Dose: Infused Methylprednisolone 40 mg/ (Syringe) 0.64 mls @ 1.5 mls/min IV QAM [facility] Stop: 06/02/25 08:59 Last Admin: 05/03/25 08:00 Dose: 1.5 mls/min Losartan Potassium (Losartan Potassium 50 Mg Tab) 50 mg PO DAILY [facility] Stop: 05/31/25 08:59 Last Admin: 05/03/25 07:59 Dose: 50 mg Miscellaneous (Remove Nicoderm Patch) 1 each N/A DAILY@0859 [facility] Stop: 06/02/25 08:58 Last Admin: 05/03/25 08:00 Dose: 1 each Nicotine (Nicotine 7 Mg/24 Hr Tdsy) 1 patch TD QAM [facility] Stop: 06/01/25 11:14 Last Admin: 05/03/25 08:00 Dose: 1 patch Polyethylene Glycol (Polyethylene (Miralax) 17 Gm Pack) 17 gm PO DAILY PRN PRN Reason: Constipation Stop: 05/31/25 00:47 Last Admin: 05/03/25 07:57 Dose: 17 gm Rosuvastatin Calcium (Rosuvastatin Calcium 10 Mg Tab) 10 mg PO DAILY [facility] Stop: 05/31/25 08:59 Last Admin: 05/03/25 07:57 Dose: 10 mg
[2025-05-04 07:05] LABS: Hematocrit (blood only) 42.2 % (42.0-52.0); Hemoglobin 14.1 g/dl (14.0-18.0); Mean Corpuscular Hemoglobin 32.6 pg (25.0-34.0); Mean Corpuscular Volume 97.5 fL (80.0-100.0); Platelet Count 309 K/uL (130-400); RDW Standard Deviation 50.0 fL (36.4-46.3); Red Blood Count 4.33 M/uL (4.70-6.10); White Blood Count 14.13 K/ul (4.8-10.8)
[2025-05-04 07:24] LABS: Anion Gap 6.0 (3-11); Blood Urea Nitrogen 26.0 mg/dl (6-23); Calcium 9.0 mg/dl (8.6-10.3); Carbon Dioxide 30.0 mmol/L (21-32); Chloride 103.0 mmol/L (98-107); Creatinine Clr Calc Pharmacy 128.9 ml/min; Glucose 98.0 mg/dl (70-99(Fasting)); Magnesium 2.3 mg/dl (1.7-2.4); Potassium 3.7 mmol/L (3.5-5.1); Sodium 139.0 mmol/L (136-145)
[2025-05-04] MEDS: POTASSIUM CHLORIDE CRTAB 20 MEQ TABCR PO STA (08:24)
--- NOTE | 2025-05-04 17:28 | Hospitalist Progress Note ---
Date of Service May 04, 2025 Assessment & Plan (1) COPD exacerbation: Plan: 64-year-old male with past medical history significant for hypercholesterolemia, ongoing tobacco use, hypertension presents with shortness of breath and cough. Since last Sunday patient was feeling short of breath and has been coughing a lot and bringing whitish-yellow phlegm. Today also had a fever of 101 F. Was wheezing. Denies any chest pain. No nausea or vomiting. No headache. No runny nose or sore throat. Appetite is okay. Normal bowel and bladder movements. Currently resting comfortably and hemodynamically stable. Acute hypoxic resp. failure COPD exacerbation, poss. PNA Presented with shortness of breath and cough and also fever BioFire negative Chest x-ray - negat. CT chest - Subpleural subsegmental atelectases with adjacent ground-glass opacities are noted in the left lower lobe. Stable. A few subpleural areas of atelectasis are also noted in the posterior basal segment of the left lower lo be. Stable. Findings are suggestive of sequelae to previous infection, likely; clinical correlation is suggested. Empiric Rocephin and doxycycline Nebs [id number] and as needed. IV Solu-Medrol Close monitor Ongoing tobacco abuse Counseling provided, nicotine patch. Pt plans to quit smoking. Hypertension Continue amlodipine, losartan and hydrochlorothiazide Monitor Hyperlipidemia On statin DVT prophylaxis - Lovenox Disposition - Admit/telemetry Full code Admission and Anticipated Discharge Date Admission Date: April 30, 2025 Subjective Pt seen in follow up of acute hypoxic resp. failure, COPD exacerbation, poss. pna Currently sitting up in bed in [facility], reports feeling much improved since admission. On 2L of suppl. O2. Per CM, he can't have [facility] today if he needed it for discharge (). Currently no fevers, chills, had fever at home No chest pain, + cough, no shortness of breath No abd. pain, n/v Review of Systems Review of Systems: All systems reviewed & are unremarkable except as noted in Subjective Physical Exam Physical Exam: General- WD/WN M Not in distress Head- atraumatic Eyes- PERRL. Neck- supple Lungs- breath sounds improved. no wheezing or crackles Heart- regular rhythm; no murmur Abdomen- normal bowel sounds, soft, nontender, no distension Extremities- no pretibial edema, no erythema seen Neuro- alert, oriented PERRL, no facial palsy; no dysarthria; moves extremities Results & Data Results & Data Vital Signs (Past 12 Hours) Vital Signs Temp Pulse Pulse Resp BP Pulse Ox O2 Del Method 05/04/25 15:13 72 17 96 Nasal Cannula 05/04/25 14:18 79 05/04/25 11:12 36.5 C 72 18 119/75 92 Nasal Cannula 05/04/25 07:32 Nasal Cannula 05/04/25 07:15 71 18 91 Nasal Cannula 05/04/25 07:10 60 05/04/25 07:02 36.7 C 67 18 127/83 90 Nasal Cannula O2 Flow Rate 05/04/25 15:13 2 05/04/25 14:18 05/04/25 11:12 2 05/04/25 07:32 1.5 05/04/25 07:15 1.5 05/04/25 07:10 05/04/25 07:02 2 Laboratory Results 05/04/25 Range/Units 06:35 WBC 14.13 H (4.8-10.8) K/ul RBC 4.33 L (4.70-6.10) M/uL Hgb 14.1 (14.0-18.0) g/dl Hct 42.2 (42.0-52.0) % MCV 97.5 (80.0-100.0) fL MCH 32.6 (25.0-34.0) pg MCHC 33.4 (32.0-36.0) g/dL RDW Std Deviation 50.0 H (36.4-46.3) fL RDW Coeff of Dave 13.7 (11.5-14.5) % Plt Count 309 (130-400) K/uL MPV 11.2 (9.4-12.4) fL Sodium 139 (136-145) mmol/L Potassium 3.7 (3.5-5.1) mmol/L Chloride 103 (98-107) mmol/L Carbon Dioxide 30 (21-32) mmol/L Anion Gap 6 (3-11) BUN 26 H (6-23) mg/dl Creatinine 0.77 (0.6-1.4) mg/dl Est Cr Clr Drug Dosing 128.9 ml/min eGFR 99.97 BUN/Creatinine Ratio 33.8 H (10-20) Glucose 98 (70-99(Fasting)) mg/dl Calcium 9.0 (8.6-10.3) mg/dl Phosphorus 4.1 (2.5-4.9) mg/dl Magnesium 2.3 (1.7-2.4) mg/dl Medications Administered Current Inpatient Medications Acetaminophen (Acetaminophen 325 Mg Tab) 650 mg PO Q4H PRN PRN Reason: Pain or Fever Stop: 05/31/25 00:47 Albuterol (Albut/Ipratrop 3mg/0.5mg Neb 3 Ml Vial) 3 ml NEB QIDR NAHID; Protocol Stop: 05/31/25 06:59 Last Admin: 05/04/25 15:12 Dose: 3 ml Albuterol (Albut/Ipratrop 3mg/0.5mg Neb 3 Ml Vial) 3 ml NEB Q4H PRN; Protocol PRN Reason: Shortness Of Breath Or Wheezing Stop: 05/31/25 00:47 Amlodipine Besylate (Amlodipine Besylate 5 Mg Tab) 2.5 mg PO DAILY [facility] Stop: 05/31/25 08:59 Last Admin: 05/04/25 08:22 Dose: 2.5 mg Aspirin (Aspirin 81 Mg Ectab) 81 mg PO DAILY [facility] Stop: 05/31/25 08:59 Last Admin: 05/04/25 08:23 Dose: 81 mg Doxycycline Hyclate (Doxycycline Hyclate 100 Mg Cap) 100 mg PO BID [facility] Stop: 05/06/25 08:59 Last Admin: 05/04/25 08:22 Dose: 100 mg Enoxaparin Sodium (Enoxaparin Inj 40 Mg/0.4 Ml Syr) 40 mg SQ Q24H [facility] Stop: 05/31/25 07:59 Last Admin: 05/04/25 08:21 Dose: 40 mg Guaifenesin (Guaifenesin 600 Mg Tabcr) 600 mg PO Q12 [facility] Stop: 05/31/25 16:39 Last Admin: 05/04/25 08:22 Dose: 600 mg Hydrochlorothiazide (Hydrochlorothiazide 25 Mg Tab) 25 mg PO DAILY [facility] Stop: 05/31/25 08:59 Last Admin: 05/04/25 08:22 Dose: 25 mg Ceftriaxone Sodium (Rocephin) 2,000 mg in 50 mls @ 100 mls/hr IV Q24H [facility] Stop: 05/06/25 00:47 Last Infusion: 05/04/25 01:23 Dose: Infused Methylprednisolone 40 mg/ (Syringe) 0.64 mls @ 1.5 mls/min IV QAM [facility] Stop: 06/02/25 08:59 Last Admin: 05/04/25 08:20 Dose: 1.5 mls/min Losartan Potassium (Losartan Potassium 50 Mg Tab) 50 mg PO DAILY [facility] Stop: 05/31/25 08:59 Last Admin: 05/04/25 08:23 Dose: 50 mg Miscellaneous (Remove Nicoderm Patch) 1 each N/A DAILY@0859 [facility] Stop: 06/02/25 08:58 Last Admin: 05/04/25 08:24 Dose: 1 each Nicotine (Nicotine 7 Mg/24 Hr Tdsy) 1 patch TD QAM [facility] Stop: 06/01/25 11:14 Last Admin: 05/04/25 08:23 Dose: 1 patch Polyethylene Glycol (Polyethylene (Miralax) 17 Gm Pack) 17 gm PO DAILY PRN PRN Reason: Constipation Stop: 05/31/25 00:47 Last Admin: 05/04/25 08:20 Dose: 17 gm Rosuvastatin Calcium (Rosuvastatin Calcium 10 Mg Tab) 10 mg PO DAILY [facility] Stop: 05/31/25 08:59 Last Admin: 05/04/25 08:22 Dose: 10 mg
[2025-05-05 07:36] VITALS: TEMP 98.1
[2025-05-05 11:10] VITALS: RESP 18; O2SAT 95
[2025-05-05] MEDS: POTASSIUM CHLORIDE CRTAB 20 MEQ TABCR PO STA (11:36)
[2025-05-05] MEDS: FUROSEMIDE INJ 20 MG/2 ML VIAL IV ONE (11:36)
[2025-05-05 11:40] LABS: Hematocrit (blood only) 44.7 % (42.0-52.0); Hemoglobin 15.1 g/dl (14.0-18.0); Mean Corpuscular Hemoglobin 32.4 pg (25.0-34.0); Mean Corpuscular Volume 95.9 fL (80.0-100.0); Platelet Count 303 K/uL (130-400); RDW Standard Deviation 48.7 fL (36.4-46.3); Red Blood Count 4.66 M/uL (4.70-6.10); White Blood Count 16.08 K/ul (4.8-10.8)
[2025-05-05 12:01] LABS: Anion Gap 6.0 (3-11); Blood Urea Nitrogen 25.0 mg/dl (6-23); Calcium 9.1 mg/dl (8.6-10.3); Carbon Dioxide 30.0 mmol/L (21-32); Chloride 102.0 mmol/L (98-107); Creatinine Clr Calc Pharmacy 134.1 ml/min; Glucose 135.0 mg/dl (70-99(Fasting)); Magnesium 2.3 mg/dl (1.7-2.4); Potassium 3.9 mmol/L (3.5-5.1); Sodium 138.0 mmol/L (136-145)
--- NOTE | 2025-05-05 13:14 | Discharge Summary ---
Date of Service May 05, 2025 Admission HPI Per Admitting Provider 64-year-old male with past medical history significant for hypercholesterolemia, ongoing tobacco use, hypertension presents with shortness of breath and cough. Since last Sunday patient was feeling short of breath and has been coughing a lot and bringing whitish-yellow phlegm. Today also had a fever of 101 F. Was wheezing. Denies any chest pain. No nausea or vomiting. No headache. No runny nose or sore throat. Appetite is okay. Normal bowel and bladder movements. Currently resting comfortably and hemodynamically stable. Past medical history. As mentioned above. Past surgical history. Colonoscopy with biopsy. Colonoscopy with lesion removal. Cystoscopy with stent insertion. EGD with biopsy. Tonsillectomy and adenoidectomy. Social history. . Smokes 1 pack a day for last 25 years. Denies alcohol use. No drug use. Family history. Father had anticardiolipin syndrome. Heart disorder. Brother had cancer. Maternal grandmother had cancer. Admission Exam Per Admitting Provider General- Head- atraumatic Eyes- PERRL. ENT- oropharynx clear Neck- supple, no JVD. Lungs-b/l diminished breath sounds no wheezing or crackles Heart- regular rhythm; no murmur, no gallop. Abdomen- normal bowel sounds, soft, nontender, no distension Extremities- no pretibial edema, no erythema seen Neuro- alert, oriented PERRL, no facial palsy; no dysarthria; moves extremities Principal Diagnosis Acute hypoxic resp. failure COPD exacerbation, possible pneumonia Discharge Exam General- WD/WN M Not in distress Head- atraumatic Eyes- PERRL. Neck- supple Lungs- breath sounds improved. no wheezing or crackles Heart- regular rhythm; no murmur Abdomen- normal bowel sounds, soft, nontender, no distension Extremities- no pretibial edema, no erythema seen Neuro- alert, oriented PERRL, no facial palsy; no dysarthria; moves extremities Discharge Data Allergies Allergy/AdvReac Type Severity Reaction Status Date / Time bee venom protein (honey bee) Allergy Severe EXTREME Verified 04/30/25 19:54 SWELLING Consultations 04/30/25 21:45 ED Decision to Admit Stat Ordered Studies 04/30/25 23:47 CT chest diagnostic wo con Urgent FINDINGS: Multiple subpleural subsegmental atelectases with adjacent ground-glass opacities are noted in the left lower lobe. A few subpleural areas of atelectasis are also noted in the posterior basal segment of the left lower lobe. The remainder of both lungs is clear. The central airways are patent. There are no pleural effusions. No pneumothorax is seen. Evaluation of the mediastinum and kassandra is limited due to the lack of intravenous contrast. No axillary or mediastinal adenopathy is identified. The thyroid is unremarkable. The heart, aorta, and pulmonary arteries are of normal size and configuration. Atherosclerotic changes are noted in the arch of the aorta. No pericardial effusion is identified. Imaged portions of the upper abdomen are unremarkable. No aggressive-appearing osseous lesions are identified. Bridging thoracic osteophytes are seen in thoracic vertebrae. IMPRESSION: Subpleural subsegmental atelectases with adjacent ground-glass opacities are noted in the left lower lobe. Stable. A few subpleural areas of atelectasis are also noted in the posterior basal segment of the left lower lobe. Stable. Findings are suggestive of sequelae to previous infection, likely; clinical correlation is suggested. Hospital Course (1) COPD exacerbation: 64-year-old male with past medical history significant for hypercholesterolemia, ongoing tobacco use, hypertension presents with shortness of breath and cough. Since last Sunday patient was feeling short of breath and has been coughing a lot and bringing whitish-yellow phlegm. Today also had a fever of 101 F. Was wheezing. Denies any chest pain. No nausea or vomiting. No headache. No runny nose or sore throat. Appetite is okay. Normal bowel and bladder movements. Currently resting comfortably and hemodynamically stable. Acute hypoxic resp. failure COPD exacerbation, poss. PNA Presented with shortness of breath and cough and also fever BioFire negative Chest x-ray - negat. CT chest - Subpleural subsegmental atelectases with adjacent ground-glass opacities are noted in the left lower lobe. Stable. A few subpleural areas of atelectasis are also noted in the posterior basal segment of the left lower lobe. Stable. Findings are suggestive of sequelae to previous infection, likely; clinical correlation is suggested. Empiric Rocephin and doxycycline -> will DC on cefuroxime and doxy to finish abx course Nebs [id number] and as needed. IV Solu-Medrol -> transitioned to PO prednisone Close monitor Ongoing tobacco abuse Counseling provided, nicotine patch. Pt plans to quit smoking. Hypertension Continue amlodipine, losartan and hydrochlorothiazide Monitor Hyperlipidemia On statin Total Time Total Time Spent Total Time Spent (In Minutes): 40 Discharge Plan Discharge Items Patient Disposition: Home - Self-Care Reason For Visit: COPD EXACERBATION Discharge Diagnosis: Acute hypoxic resp. failure COPD exacerbation, possible pneumonia Condition on Discharge: Fair Activity: Per Instructions section Non-emergency contact: Primary Care Provider Call non-emergency contact if: you have any medication questions and your symptoms worsen Follow-up/Referrals: Fernando Barney MD [Primary Care Provider] - (Date & Time 05/07/2025 9:20 AM Provider: Marissa Farris PA-C [facility] [place], [facility] ) Diet: Heart Healthy Addtl Attending Provider Instructions: Follow up with primary care physician within 1 week. Finish antibiotic course and steroid taper as prescribed. Pending Studies at Discharge: No Stand-Alone Forms: My [facility], Smoking Cessation Medications and DC Order Prescriptions: New cefuroxime axetil 500 mg tablet 500 mg PO BID 2 Days Qty: 4 0RF doxycycline hyclate 100 mg Capsule 100 mg PO BID Qty: 4 0RF guaifenesin [Mucinex] 600 mg Tablet Extended Release 12hr 600 mg PO Q12 Qty: 10 0RF prednisone 20 mg tablet 20 mg PO DAILY Qty: 3 0RF Continued losartan 50 mg tablet 50 mg PO DAILY amlodipine 2.5 mg tablet 2.5 mg PO DAILY aspirin 81 mg Tablet,Delayed Release (Dr/Ec) 81 mg PO DAILY hydrochlorothiazide 25 mg tablet 25 mg PO DAILY rosuvastatin 10 mg tablet 10 mg PO DAILY Discharge Orders: Discharge Order (Routine); Ordered 05/05/25 Ordered By: Venancio Loo Admission Data Admit Date/Time: 04/30/25 23:44 Attending Provider: Venancio Loo Admit Provider: José Luis Hayes Primary Care Provider: Fernando Barney Other Providers: José Luis Hayes; [facility]
[2025-05-05 14:07] VITALS: BP 138/83; PULSE 62
== END 2025-05-05 15:30 | disposition home or self-care (01) | DRG 190 ==
LOC: ED 17:04 → 2W 23:44